=== PATIENT | male | born 1940 | race Caucasian/White ===

== ENCOUNTER 2016-04-27 01:19 | Emergency (ER) | payer OTHER ==
[~2016-04-27] VITALS: Ht 175.3 cm; Wt 80.0 kg
[2016-04-27 01:22] VITALS: TEMP 36.7; O2SAT 99; Ht 175.3 cm; Wt 80.0 kg
--- NOTE | 2016-04-27 01:54 | EMERGENCY ROOM VISIT NOTE ---
History Report prepared by Tommy: Pricilla Jimenez Under the Supervision of: Dr. Whitley Velazquez D.O. First contact with patient: 01:28 Chief Complaint: HYPERTENSION Stated Complaint: LIGHT HEADED,BALANCE OFF,BLOOD PRESSURE 200/80 History of Present Illness The patient is a 75 year old male who presents to the Emergency Room with complaints of hypertension starting shortly INSOLE RASPER. The patient states that he started to feel lightheaded and off balance intermittently and then took his blood pressure and it was 200/80 and states its usually 120/80. The patient states he was also experiencing ringing in his ears which he associates with his hypertension. The patient denies any chest pain, trouble breathing, headache , or swelling of the legs or feet. The patient denies any episodes of previous vertigo. He states that today he has eaten sauerkraut, pork, applesauce and a cinnamon roll. He denies any recent anxiety or stress or new medications. The patient states that he takes medication or diabetes and a daily tablet to control his cholesterol. Source of History: patient Onset: shortly INSOLE RASPER Position: other (global) Symptom Intensity: 200/80 Associated Symptoms: No chest pain, No headache Note: Associated symptoms:lightheaded and off balance intermittently, ear ringing. Patient denies trouble breathing or swelling of the legs or feet. Review of Systems See HPI for pertinent positives & negatives. A total of 10 systems reviewed and were otherwise negative. Past Medical & Surgical Medical Problems: (1) Diabetes mellitus (2) High cholesterol Family History No pertient family history secondary to age. Social History Smoking Status: Never Smoker Marital Status: Housing Status: lives with significant other Occupation Status: retired Current/Historical Medications Scheduled Atorvastatin (Lipitor), 20 MG PO DAILY Cholecalciferol (Vitamin D3), 400 UNITS PO DAILY Glipizide (Glipizide Er), 10 MG PO DAILY Metformin Hcl (Glucophage), 1,000 MG PO BID Multivitamin (Multivitamin), 1 TAB PO DAILY Allergies Coded Allergies: No Known Allergies (Unverified , 04/27/16) Physical Exam Vital Signs Date Time Temp Pulse Resp B/P Pulse Ox O2 Delivery O2 Flow Rate FiO2 04/27/16 03:38 161/85 04/27/16 02:16 91 18 159/78 04/27/16 02:07 89 04/27/16 01:22 36.7 93 18 188/86 99 Room Air Physical Exam HEENT: Head - normocephalic and atraumatic Pupils are equal, round, and reactive to light. Extraocular eye muscles are intact, and sclera are anicteric. Nose - moist nasal mucosa without discharge. Mouth - moist buccal mucosa. Oropharynx is nonerythematous and there is no tonsillar exudate or edema noted. Neck: Supple; no JVD, nuchal rigidity, cervical lymphadenopathy, or auscultated bruits. Heart: Regular rate and rhythm. There is a normal S1 and S2 with no murmurs, clicks, or gallops appreciated. Lungs: Clear to auscultation bilaterally with no wheezes, rales, or rhonchi. Abdomen: Soft, completely nontender, nondistended, with good bowel sounds. There are no palpable pulsatile masses or hepatosplenomegaly. There is no guarding, rigidity, or rebound noted. Extremities: No evidence of cyanosis, clubbing, or edema. There are easily palpable peripheral pulses. Skin: warm and dry with good turgor and no rashes. Medical Decision & Procedures Laboratory Results 04/27/16 02:00 Red Blood Count 4.33, Mean Corpuscular Volume 91.2, Mean Corpuscular Hemoglobin 32.6, Mean Corpuscular Hemoglobin Concent 35.7, Mean Platelet Volume 9.6, Neutrophils (%) (Auto) 72.2, Lymphocytes (%) (Auto) 18.1, Monocytes (%) (Auto) 7.8, Eosinophils (%) (Auto) 1.4, Basophils (%) (Auto) 0.3, Neutrophils # (Auto) 4.18, Lymphocytes # (Auto) 1.05, Monocytes # (Auto) 0.45, Eosinophils # (Auto) 0.08, Basophils # (Auto) 0.02 04/27/16 02:00 Test 04/27/16 02:00 White Blood Count 5.79 K/uL (4.8-10.8) Red Blood Count 4.33 M/uL (4.7-6.1) Hemoglobin 14.1 g/dL (14.0-18.0) Hematocrit 39.5 % (42-52) Mean Corpuscular Volume 91.2 fL (80-100) Mean Corpuscular Hemoglobin 32.6 pg (25-34) Mean Corpuscular Hemoglobin Concent 35.7 g/dl (32-36) Platelet Count 173 K/uL (130-400) Mean Platelet Volume 9.6 fL (7.4-10.4) Neutrophils (%) (Auto) 72.2 % Lymphocytes (%) (Auto) 18.1 % Monocytes (%) (Auto) 7.8 % Eosinophils (%) (Auto) 1.4 % Basophils (%) (Auto) 0.3 % Neutrophils # (Auto) 4.18 K/uL (1.4-6.5) Lymphocytes # (Auto) 1.05 K/uL (1.2-3.4) Monocytes # (Auto) 0.45 K/uL (0.11-0.59) Eosinophils # (Auto) 0.08 K/uL (0-0.5) Basophils # (Auto) 0.02 K/uL (0-0.2) RDW Standard Deviation 41.1 fL (36.4-46.3) RDW Coefficient of Variation 12.1 % (11.5-14.5) Immature Granulocyte % (Auto) 0.2 % Immature Granulocyte # (Auto) 0.01 K/uL (0.00-0.02) Anion Gap 11.0 mmol/L (3-11) Est Creatinine Clear Calc Drug Dose 82.1 ml/min Estimated GFR () 102.5 Estimated GFR (Non- 88.5 BUN/Creatinine Ratio 22.5 (10-20) Calcium Level 8.7 mg/dl (8.5-10.1) Total Bilirubin 0.4 mg/dl (0.2-1) Aspartate Amino Transf (AST/SGOT) 21 U/L (15-37) Alanine Aminotransferase (ALT/SGPT) 30 U/L (12-78) Alkaline Phosphatase 94 U/L (45-117) Total Creatine Kinase 180 U/L (39-308) Creatine Kinase MB 5.9 ng/ml (0.5-3.6) Creatine Kinase MB Ratio 3.3 (0-3.0) Troponin I < 0.015 ng/ml (0-0.045) Pro-B-Type Natriuretic Peptide 73 pg/ml (0-900) Total Protein 7.0 gm/dl (6.4-8.2) Albumin 3.9 gm/dl (3.4-5.0) Globulin 3.1 gm/dl (2.5-4.0) Albumin/Globulin Ratio 1.3 (0.9-2) Laboratory results per my review. ECG Indication: other (hypertension) Rate (beats per minute): 92 Rhythm: normal sinus Findings: no acute ischemic change, no ectopy Comparison ECG Date: no prior available ED Course 0135: Past medical records reviewed. The patient was evaluated in room B10. A complete history and physical exam was performed. Laboratory studies were drawn as above. A twelve-lead EKG was obtained. The patient was observed on the alarm security or surveillance monitor and pulse oximeter. 0336: I reevaluated the patient and he is feeling much better with no dizziness and a blood pressure of 161/85. The nursing staff will be walking him around to insure his symptoms are resolved. He is feeling much better. 0350: Upon reevaluation, the patient is hemodynamically stable. I discussed findings and results with him. He verbalized agreement of the treatment plan. The patient was discharged home. Medical Decision The patient is a 75 year old male who presents to the ED with hypertension. Differential diagnosis includes vertigo, hypertensive crisis, dehydration, and hyperglycemia. Labs: Normal white count Normal H&H Glucose 135 LFTs normal Troponin was negative This is a 75-year-old male patient who noticed that his blood pressure was elevated on his 's monitor. The patient explains that his blood pressure normally runs 120s-130s. It was over 200. The patient denies any significant associated symptoms. I have asked the patient to watch his blood pressure closely over the next couple days and follow-up with his PCP after keeping a log. He did also try to avoid any foods with added salt. Impression Primary Impression: Hypertension Additional Impression: Hyperglycemia due to type 2 diabetes mellitus Scribe Attestation The scribe's documentation has been prepared under my direction and personally reviewed by me in its entirety. I confirm that the note above accurately reflects all work, treatment, procedures, and medical decision making performed by me. Departure Information Dispostion Home / Self-Care Referrals Elisa Hackett M.D. (PCP) Forms HOME CARE DOCUMENTATION FORM, IMPORTANT VISIT INFORMATION, WORK / SCHOOL INSTRUCTIONS Patient Instructions A Signature Page, [facility] Additional Instructions Rest. Limit salt intake . Watch BP closely over the next 2-3 days then follow up with PCP Return to the ER for any worsening symptoms
[2016-04-27 02:08] LABS: BASO % 0.3 %; BASO ABS # 0.02 K/uL (0-0.2); COMPLETE YES; EOS % 1.4 %; HEMATOCRIT 39.5 % (42-52); IG% 0.2 %; LYMPH % 18.1 %; LYMPH ABS # 1.05 K/uL (1.2-3.4); MEAN CELL VOLUME 91.2 fL (80-100); MEAN CORPUSCULAR HEMOGLOBIN 32.6 pg (25-34); MEAN CORPUSCULAR HGB CONC 35.7 g/dl (32-36); MEAN PLATELET VOLUME 9.6 fL (7.4-10.4); MONO % 7.8 %; NEUT % 72.2 %; PLATELET COUNT 173 K/uL (130-400); RED BLOOD COUNT 4.33 M/uL (4.7-6.1); WHITE BLOOD COUNT 5.79 K/uL (4.8-10.8)
[2016-04-27 02:16] VITALS: PULSE 91
[2016-04-27 02:28] LABS: ALT/SGPT 30 U/L (12-78); AST/SGOT 21 U/L (15-37); BLOOD UREA NITROGEN 18 mg/dl (7-18); BUN/CREATININE RATIO 22.5 (10-20); CALCIUM 8.7 mg/dl (8.5-10.1); CARBON DIOXIDE 26 mmol/L (21-32); CHLORIDE 106 mmol/L (98-107); CREATININE 0.79 mg/dl (0.60-1.40); GLUCOSE 135 mg/dl (70-99); SODIUM 143 mmol/L (136-145)
[2016-04-27 02:33] LABS: ALB/GLOB RATIO 1.3 (0.9-2); ALKALINE PHOSPHATASE 94 U/L (45-117); CKMB/CK RATIO 3.3 (0-3.0)
[2016-04-27 03:38] VITALS: BP 161/85
[2016-04-27] MEDS ORDERED: ATOR-22 PO (03:45)
[2016-04-27] MEDS ORDERED: GLIP-199 PO (03:46)
[2016-04-27] MEDS ORDERED: METF-384 PO (03:46)
[2016-04-27] MEDS ORDERED: MULT-506 PO (03:47)
[2016-04-27] MEDS ORDERED: CHOL1CAP30 PO (03:48)
== END 2016-04-27 04:27 | disposition home or self-care (01) ==
LOC: C.EDB 01:20
DX: I10 Essential (primary) hypertension (principal); E11.65 Type 2 diabetes mellitus with hyperglycemia; R42 Dizziness and giddiness; H93.19 Tinnitus, unspecified ear; E78.00 Pure hypercholesterolemia, unspecified; Z79.84 Long term (current) use of oral hypoglycemic drugs; Z79.899 Other long term (current) drug therapy

== ENCOUNTER 2023-03-27 21:58 | Inpatient (IN) ==
--- OUTSIDE RECORDS SUMMARY | 2023-03-27 22:06 | External Medical Summary | Summary of Care ---
Author Name Unknown Organization [facility] Address [address] [place] [address] Phone [phone] Care Team Providers Care Table Machine Operator Name Role Phone Amanda Hidalgo DO Primary Care Provider [phone] Reason for Visit * Reason Comments eRx-Medication Refill Encounter Details Date Type Department Care Team (Late st Contact Info) Description 03/08/2023 Refill Family Medicine [address] [phone] Yoon Greer PA-C [address] [place] [id number] Dyslipidemia, goal LDL below 100; Type 2 diabetes mellitus with hemoglobin A1c goal of less than 7.5% ([facility]) Allergies Active Allergy Reactions Criticality Noted Date Comments Amoxicillin Rash High 11/18/2009 rash documented as of this encounter (statuses as of 03/09/2023) Medications Medication Sig Dispensed Refills Start Date End Date Status LANCETS MISCIndications: DM type 2, goal A1c below 7 Use as directed dx 250.00 1 Box 11 01/28/2012 Active Ergocalciferol (VITAMIN D2) 400 UNITS TABS Take by mouth. 0 05/06/2016 Active Multiple Vitamins-Mineral s (MULTIVITAMIN ADULT) TABS Take by mouth. 0 08/23/2018 Active ferrous sulfate (FEOSOL) 325 (65 FE) MG Tablet Take 1 Tablet by mouth in the morning. 60 Tab 11 08/23/2018 Active Lisinopril 10 MG Oral Tablet (Prinivil)Indica tions:HTN, goal below 140/90 Take by mouth 1 Tablet in the morning. 90 Tablet 3 02/18/2022 Active glipiZIDE ER 10 MG Oral Tablet Extended Release 24 Hour (glipiZIDE XL) Take 1 Tablet by mouth in the morning. 30 minutes before a meal.. 90 Tablet 1 08/14/2022 Active Fabian Contour Test In Vitro Strip (Glucose Blood) Test once daily Dx code E11.9 100 Strip 5 08/31/2022 Active glipiZIDE ER 5 MG Oral Tablet Extended Release 24 Hour (glipiZIDE XL)Indications:T ype 2 diabetes mellitus with hemoglobin A1c goal of less than 8.0% (HCC) Take 1 Tablet by mouth in the morning. Take along with 10 mg tablet to equal 15 mg daily. 30 minutes before a meal.. 90 Tablet 1 11/16/2022 Active Atorvastatin Calcium 20 MG Oral Tablet (Lipitor)Indicat ions:Dyslipidemi a, goal LDL below 100 TAKE ONE TABLET BY MOUTH EVERY MORNING 90 Tablet 1 03/09/2023 Active metFORMIN HCl 1000 MG Oral Tablet (Glucophage)Nitza cations:Type 2 diabetes mellitus with hemoglobin A1c goal of less than 7.5% (HCC) TAKE ONE TABLET BY MOUTH TWICE DAILY WITH MORNING AND EVENING MEALS 180 Tablet 1 03/09/2023 Active Atorvastatin Calcium 20 MG Oral Tablet (Lipitor)Indicat ions:Dyslipidemi a, goal LDL below 100 Take by mouth 1 Tablet in the morning. 90 Tablet 3 02/18/2022 03/09/2023 Discontinued metFORMIN HCl 1000 MG Oral Tablet (Glucophage)Nitza cations:Type 2 diabetes mellitus with hemoglobin A1c goal of less than 7.5% (HCC) TAKE ONE TABLET BY MOUTH TWICE DAILY WITH MORNING AND EVENING MEALS 180 Tablet 3 02/18/2022 03/09/2023 Discontinued documented as of this encounter (statuses as of 03/09/2023) Active Problems Problem Noted Date Diagnosed Date Type 2 diabetes mellitus wit h hemoglobin A1c goal of less than 8.0% 08/14/2022 Nonrheumatic aortic valve stenosis 08/14/2022 Overview: Very mild 02/2020 Type 2 diabetes mellitus with diabetic cataract 08/23/2018 Anemia 02/23/2018 HTN, goal below 140/90 02/23/2018 H/O nonmelanoma skin cancer 10/28/2016 Overview: BCC (L roman catholic, L central frontal scalp 05/16) AK (actinic keratosis) 03/02/2016 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 García [place] [facility] [place] Degenerative disc disease, cervical 07/29/2016 02/05/2017 Type 2 diabetes mellitus wit h hemoglobin A1c goal of less than 7.5% 07/16/2016 08/14/2022 Lumbar degenerative disc disease 05/25/2016 02/05/2017 Primary osteoarthritis of both hips 05/25/2016 02/05/2017 Type 2 diabetes mellitus wit h hemoglobin A1c goal of less than 7.0% 03/25/2015 07/25/2016 Overview: ICD-10 update of inactive term Peripheral sensory neuropathy 03/25/2015 02/23/2018 Balance disorder 09/20/2014 07/29/2016 BCC (basal cell carcinoma), face 11/29/2013 02/05/2017 Overview: L roman catholic-2013 DM type 2 causing eye disease 06/02/2013 02/05/2017 Type 2 diabetes mellitus wit h hemoglobin A1c goal of less than 8.0% 08/23/2012 03/25/2015 Overview: ICD-10 update of inactive term Type 2 diabetes mellitus wit h hemoglobin A1c goal of less than 7.0% 11/18/2009 08/23/2012 Overview: ICD-10 update of inactive term Diabetic polyneuropathy 11/18/200902/26 Overview: ICD-10 update of inactive term documented as of this encounter (statuses as of 03/09/2023) Immunizations Name Administration Dates Next Due COVID-19 mRNA, LNP-s, No Pre serve, 2-Dose Series (Moderna) 11/28/2021,06/26/2020,05/23/2020 COVID-19, mRNA, LNP-s, PF, B ooster, 100mcg/0.5mg (Moderna) 02/24/2021 Covid-19, Mrna, Lnp-s, Pf, B ivalent, 50 Mcg, IM, 12 yrs and above (Moderna) 02/09/2022 Pneumococcal Conjugate Vacc, 13 Valent (Prevnar) 09/20/2014 Pneumococcal Polysaccharide PPV23 (Pneumovax) 12/25/2009,11/18/2009(Deferred: Patient Refused) SEASONAL INFLUENZA, PF, 6 M & Above, IM , (FLULAVAL or FLUZONE) 02/23/2018,02/05/2017 Season Influenza, Quad, PF, Adjuvanted, 65+ Yrs, IM (FLUAD) 02/12/2023 Seasonal Influenza, Quadriva lent Hd (Fluzone Hd) 01/10/2021 Seasonal Influenza, Quadriva lent Hd, 65+ Yrs 01/26/2020 Seasonal Influenza, Quadriva lent, No Preserve, IM 01/27/2016,03/25/2015 Seasonal Influenza, Split, I IV3, With Preserve, Inj 03/02/2014,02/23/2013,01/28/2012,01/27,03/27/2010 Seasonal Influenza, Trivalen t, Adjuvanted, 65+ yrs 02/09/2022,02/10/2019 TDAP (age 11 and older)(Adacel) 09/24/2015 Varicella Zoster Vaccine (Adult) 02/24/2013 Zoster Vaccine Recombinant (Shingrix) 09/30/2020 ,12/18/2019 documented as of this encounter Social History Tobacco Use Types Packs/Day Years Used Date Smoking Tobacco: Never Smokeless Tobacco: Never Alcohol Use Standard Drinks/Week Comments No 0 (1 standard drink = 0.6 oz pur e alcohol) PHQ-2 Answer Date Recorded PHQ Adult Total Score 0 08/14/2022 Hunger Vital Sign Answer Date Recorded Worried About Running Out of Food in the Last Ye ar Never true 12/26/2019 Ran Out of Food in the Last Year Never true 12/26/2019 Sex and Gender Information Value Date Recorded Sex Assigned at Not on file Gender Identity Not on file Sexual Orientation Not on file Job Start Date Occupation Industry Not on file Not on file Not on file documented as of this encounter Miscellaneous Notes * Telephone Encounter - Laura James RPh - 03/09/2023 1:20 PM ESTSigned Prescriptions: Disp Refills Atorvastatin Calcium 20 MG Oral Tablet (Li*90 Tab*1 Sig: TAKE ONE TABLET BY MOUTH EVERY MORNINGAuthorizing Provider: YOON GREER User: LAURA JAMESmetFORMIN HCl 1000 MG Oral Tablet (Glucoph*180 Ta*1 Sig: TAKE ONE TABLET BY MOUTH TWICE DAILY WITH MORNING AND EVENING MEALSAuthorizing Provider: YOON GREER User: LAURA JAMES documented in this encounter Plan of Treatment Upcoming Encounters Date Type Department Care Team (Late st Contact Info) Description 04/06/2023 1:45 PM EST Office Visit Ophthalmology, [facility] [address] [facility] [place] [phone] Connor Knowles DO [address] [place] [phone] 04/07/2023 2:30 PM EST Office Visit Pharmacy, [address] [place] [phone] [place] [phone] 05/19/2023 1:40 PM EST Office Visit Dermatology [address] [place] [phone] Lizeth Reardon PA-C [address] [place] [address] [place] [phone] 09/29/2023 9:30 AM EDT Office Visit Family Medicine [address] [place] [phone] Amanda Hidalgo, [address] [place] [phone] Health Maintenance Due Date Last Done Comments Hepatitis B (1 of 3 - Risk 3-dose series) 2001 COVID-19 Vaccine ( season) 2022 02/09/2022, 11/28/2021, 02/24/2021, Additional history exists Diabetic Eye Exam 03/25/2023 03/25/2022 (Do ne elsewhere), 06/16/2021, 03/17/2021, Additional history exists Albumin/Creatinine Ratio 08/13/2023 023, 08/15/2021, 08/26/2020, Additional history exists Depression Screening 08/15/2023 08/14/2022 Diabetic Foot Exam 08/15/2023 08/14/2022, 0 08/22/2021, 08/30/2020, Additional history exists HbA1c 08/24/2023 02/23/2023, 10/25, 08/12/2022, Additional history exists B-12 02/24/2024 02/23/2023, 01/24, 08/15/2021, Additional history exists GFR 02/24/2024 02/23/2023, 07/25, 02/11/2022, Additional history exists DTaP,Tdap,and Td Vaccines (2 - Td or Tdap) 09/23/2025 09/24/2015 Pneumococcal Vaccine: 65+ Years Completed 09/20/2014, 12/25/2009 Zoster Vaccines Completed 09/30/2020, 11/25, 02/24/2013 FOBT ANNUALLY,AGES 18-90 Discontinued 022, 09/16/2020, 03/09/2019, Additional history exists Influenza Vaccine (FLU shot) Completed 02/12/2023, 02/09/2022, 01/10/2021, Additional history exists GARDASIL-HPV IMMUNIZATION SERIES Aged Out No longer eligible based on patient's age to complete this topic MENINGOCOCCAL (MENACTRA/MENVEO) Aged Out No longer eligible based on patient's age to complete this topic documented as of this encounter Medical Devices Not on filedocumented as of this encounter Visit Diagnoses Diagnosis Dyslipidemia, goal LDL below 100 Other and unspecified hyperlipidemia Type 2 diabetes mellitus with hemoglobin A1c goal of less than 7.5% ([facility]) documented in this encounter Care Teams Table Machine Operator Relationship Specialty Start Date End Date Amanda Hidalgo DO [address] [place] [address] [place] [phone] PCP - General Internal Medicine 08/18/18 documented as of this encounter
--- OUTSIDE RECORDS SUMMARY | 2023-03-27 22:06 | External Medical Summary ---
Author Name Unknown Address Unknown Organization [id number]:[facility] [place] - [address] [place] [id number] Laboratory Report Ordering Provider Test Date Status JENNIFER VALDIVIA 02/23/2023 10:34:05 Final Deficient: <20 ng/mL
Ins ufficient: 20-29 ng/mL
Recommended/Optimum:30-50 ng/mL

Vitamin D intoxication is rare. If suspicious of Vitamin D toxicity, evaluation of serum Calcium and PTH is recommended. Observation Date Value Abnormality Reference (Units ) Status 25-OH Vitamin D total 02/23/2023 10:34:05 55 >19 (ng/mL) Final Performing Location [facility] [place] - [address] [place] [phone]
--- OUTSIDE RECORDS SUMMARY | 2023-03-27 22:06 | External Medical Summary | Summary of Care ---
Author Name Unknown Organization [facility] Address [address] [facility] [place] [address] Phone [phone] Care Team Providers Care Seafood Service Team Member Name Role Phone Amanda Hidalgo DO Primary Care Provider Reason for Visit * Reason Comments Outpatient Testing Encounter Details Date Type Department Care Team (Late st Contact Info) Description 02/23/2023 10:20 AM EDT Laboratory Laboratory [address] [place] [phone] [facility] [address] [place] [phone] Type 2 diabetes mellitus with hemoglobin A1c goal of less than 8.0% ([facility]); half-way current use of therapeutic drug; Iron deficiency anemia secondary to inadequate dietary iron intake Allergies Active Allergy Reactions Criticality Noted Date Comments Amoxicillin Rash High 11/18/2009 rash documented as of this encounter (statuses as of 02/23/2023) Medications Medication Sig Dispensed Refills Start Date End Date Status LANCETS MISCIndications:DM type 2, goal A1c below 7 Use as directed dx 250.00 [address] 01/28/2012 Active Ergocalciferol (VITAMIN D2) 400 UNITS TABS Take by mouth. 0 05/06/2016 Active Multiple Vitamins-Minerals (MULTIVITAMIN ADULT) TABS Take by mouth. 0 08/23/2018 Active ferrous sulfate (FEOSOL) 325 (65 FE) MG Tablet Take 1 Tablet by mouth in the morning. 60 Tab 11 08/23/2018 Active Atorvastatin Calcium 20 MG Oral Tablet (Lipitor)Indications :Dyslipidemia, goal LDL below 100 Take by mouth 1 Tablet in the morning. 90 Tablet 3 02/18/2022 Active Lisinopril 10 MG Oral Tablet (Prinivil)Indication s:HTN, goal below 140/90 Take by mouth 1 Tablet in the morning. 90 Tablet 3 02/18/2022 Active metFORMIN HCl 1000 MG Oral Tablet (Glucophage)Indicati ons:Type 2 diabetes mellitus with hemoglobin A1c goal of less than 7.5% (HCC) TAKE ONE TABLET BY MOUTH TWICE DAILY WITH MORNING AND EVENING MEALS 180 Tablet 3 02/18/2022 Active glipiZIDE ER 10 [...] Oral Tablet Extended Release 24 Hour (glipiZIDE XL)Indications:Type 2 diabetes mellitus with hemoglobin A1c goal of less than 8.0% (HCC) Take 1 Tablet by mouth in the morning. Take along with 10 mg tablet to equal 15 mg daily. 30 minutes before a meal.. 90 Tablet 1 11/16/2022 Active Dexcom G7 Stud Beef Cattle Farmer Device Use as directed 1 Each 0 12/09/2022 Active Dexcom G7 Sensor Use as directed. Change every 10 days. 3 Each 3 12/09/2022 Active documented as of this encounter (statuses as of 02/23/2023) Active Problems Problem Noted Date Diagnosed Date Type 2 diabetes mellitus wit h hemoglobin A1c goal of less than 8.0% 08/14/2022 Nonrheumatic aortic valve stenosis 08/14/2022 Overview: Very mild 02/2020 Hydrocele in adult 08/30/2020 [place]: 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 06/19 Hyperlipidemia with target LDL less than 70 10/25 documented as of this encounter (statuses as of 02/23/2023) Resolved Problems Problem Noted Date Diagnosed Date Resolved Date Degenerative disc disease, cervical 07/29/2016 02/05/2017 Type [...] (basal cell carcinoma), face 11/29/2013 02/05/2017 Overview: Edgar palaciosorthodox-2013 DM type 2 causing eye disease 06/02/2013 [...] as of this encounter (statuses as of 02/23/2023) Immunizations Name Administration Dates Next Due COVID-19 [...] on file documented as of this encounter Plan of Treatment Upcoming Encounters Date Type Department Care Team ([facility] st Contact Info) Description 02/24/2023 1:50 PM EDT Office Visit Family Medicine [address] [phone] Amanda Hidalgo, [address] [place] [phone] 02/24/2023 2:40 PM EDT Office Visit Pharmacy, [address] [place] [phone] [place] [address] 04/06/2023 1:45 PM EST Office Visit Ophthalmology, [facility] [address] [place] [address] Connor Knowles, [address] [place] [address] 05/19/2023 1:40 PM EST Office Visit Dermatology [address] [place] [address] Lizeth Reardon PA-C [address] [place] [address] [place] [phone] Pending Results Name Type Priority Associated Diagnoses Date /Time HEMOGLOBIN A1C Lab Routine Type 2 diabetes mellitus with hemoglobin A1c goal of less than 8.0% ([facility]) 02/23/2023 10:34 AM EDT VITAMIN B12 Lab Routine half-way current use of therapeutic drug 02/23/2023 10:34 AM EDT CBC WITH WBC DIFFERENTIAL AND ANEMIA REFLEX WORKUP Lab Routine Iron deficiency anemia secondary to inadequate dietary iron intake 02/23/2023 10:34 AM EDT 25-HYDROXY VITAMIN D Lab Routine half-way current use of therapeutic drug 02/23/2023 10:34 AM EDT ANEMIA CBC Lab Routine Iron deficiency anemia secondary to inadequate dietary iron intake 02/23/2023 10:34 AM EDT DIFFERENTIAL, AUTOMATED Lab Routine Iron deficiency anemia secondary to inadequate dietary iron intake 02/23/2023 10:34 AM EDT ANEMIA REFLEX CHEMISTRY HOLD Lab Routine Iron deficiency anemia secondary to inadequate dietary iron intake 02/23/2023 10:34 AM EDT Health Maintenance Due Date Last Done Comments Hepatitis B (1 of 3 - Risk 3-dose series) 2001 COVID-19 Vaccine ( season) 2022 02/09/2022, 11/28/2021, 02/24/2021, Additional history exists FOBT ANNUALLY,AGES 18-90 01/15/2023 022, 09/16/2020, 03/09/2019, Additional history exists B-12 02/11/2023 02/11/2022, 07/26, 02/26/2020, Additional history exists Diabetic Eye Exam 03/25/2023 03/25/2022 (Do ne elsewhere), 06/16/2021, 03/17/2021, Additional history exists HbA1c 05/15/2023 11/12/2022, 07/25, 02/11/2022, Additional history exists Albumin/Creatinine Ratio 08/13/2023 023, 08/15/2021, 08/26/2020, Additional history exists GFR 08/13/2023 08/12/2022, 01/24, 08/15/2021, Additional history exists Depression Screening 08/15/2023 08/14/2022 Diabetic Foot Exam 08/15/2023 08/14/2022, 0 08/22/2021, 08/30/2020, Additional history exists DTaP,Tdap,and Td Vaccines (2 - Td or Tdap) 09/23/2025 09/24/2015 Pneumococcal Vaccine: 65+ Years Completed 09/20/2014, 12/25/2009 Zoster Vaccines Completed 09/30/2020, 11/25, 02/24/2013 Influenza Vaccine (FLU shot) Completed , 02/09/2022, 01/10/2021, Additional history exists GARDASIL-HPV IMMUNIZATION SERIES Aged Out No longer eligible based on patient's age to complete this topic MENINGOCOCCAL (MENACTRA/MENVEO) Aged Out No longer eligible based on patient's age to complete this topic documented as of this encounter Medical Devices Not on filedocumented as of this encounter Visit Diagnoses Diagnosis Type 2 diabetes mellitus with hemoglobin A1c goal of less than 8.0% (HCC) half-way current use of therapeutic drug Iron deficiency anemia secondary to inadequate dietary iron intake documented in this encounter Care Teams Seafood Service Team Member Relationship Specialty Start Date End Date Amanda Hidalgo DO [address] [place] [address] [place] [phone] PCP - General Internal Medicine 08/18/18 documented as of this encounter
--- OUTSIDE RECORDS SUMMARY | 2023-03-27 22:06 | External Medical Summary | Summary of Care ---
Author Name Unknown Organization [facility] Address [address] [facility] [place] [address] Phone [phone] Care Team Providers Care Census Enumerator Name Role Phone Amanda Hidalgo DO Primary Care Provider [phone] Reason for Visit * Reason Comments Outpatient Testing Encounter Details Date Type Department Care Team (Late st Contact Info) Description 02/23/2023 10:20 AM EDT Laboratory Laboratory [address] [place] [phone] [facility] [address] [place] [phone] Arrived Allergies Active Allergy Reactions Criticality Noted Date [...] 90 Tablet 1 11/16/2022 Active Dexcom G7 Food And Beverage Server Device Use as directed 1 Each 0 [...] in adult 08/30/2020 Overview: Dr. García - [facility] [place] Type 2 diabetes mellitus with diabetic cataract 08/23/2018 Anemia 02/23/2018 HTN, goal below 140/90 02/23/2018 H/O nonmelanoma skin cancer 10/28/2016 Overview: BCC (L protestant, L central frontal scalp 05/16) AK (actinic [...] cell carcinoma), face 11/29/2013 02/05/2017 Overview: L protestant-2013 DM type 2 causing eye disease 06/02/2013 [...] Care Team (Late st Contact Info) Description 02/24/2023 1:50 PM EDT Office Visit Family Medicine [address] [place] [phone] Amanda Hidalgo [address] [place] [phone] 02/24/2023 2:40 PM EDT Office Visit Pharmacy, [address] [place] [phone] [place] [address] 04/06/2023 1:45 PM EST Office Visit Ophthalmology, [facility] [address] [place] [address] Connor Knowles, [address] [place] [address] 05/19/2023 1:40 PM EST Office Visit Dermatology [address] [place] [address] Lizeth Reardon PA-C [address] [place] [address] [place] [address] Health Maintenance Due Date Last Done Comments [...] Not on filedocumented as of this encounter Care Teams Census Enumerator Relationship Specialty Start Date End Date Amanda Hidalgo DO [address] [place] [address] [place] [address] PCP - General Internal Medicine 08/18/18 documented as of this encounter
--- OUTSIDE RECORDS SUMMARY | 2023-03-27 22:06 | External Medical Summary ---
Author Name Unknown Address Unknown Organization [id number]:LABORATORY [facility] [place] - [address] [facility] [address] Laboratory Report Ordering Provider Test Date Status JENNIFER VALDIVIA 02/23/2023 10:34:05 Final Observation Date Value Abnormality Reference (Units ) Status SYNC LEUKOCYTES IN BLOOD BY AUTOMATED COUNT 02/23/2023 10:34:05 5.00 4.00-10.80 (K/uL) Final Segs 02/23/2023 10:34:05 62.8 40.0-75.0 (%) Final Lymphs % 02/23/2023 10:34:05 22.8 18.0-42.0 (%) Final Monos 02/23/2023 10:34:05 9.6 1.0-11.0 (%) Final Eosinophils 02/23/2023 10:34:05 3.6 0.0-6.0 (%) Final Basos 02/23/2023 10:34:05 0.8 0.0-2.0 (%) Final Immature Granulocyte, Percent 02/23/2023 10:34:05 0.4 0.0-2.0 (%) Final Absolute Segs 02/23/2023 10:34:05 3.14 1.80-7.70 (K/uL) Final Lymphs, absolute 02/23/2023 10:34:05 1.14 1.00-4.80 (K/ul) Final Monos, Abs 02/23/2023 10:34:05 0.48 0.00-1.10 (K/uL) Final Eos, Abs 02/23/2023 10:34:05 0.18 0.00-0.70 (K/uL) Final Basos, Abs 02/23/2023 10:34:05 0.04 0.00-0.20 (K/uL) Final Immature Granulocytes, Number 02/23/2023 10:34:05 0.02 0.00-0.20 (K/uL) Final Performing Location LABORATORY [facility] [place] - [address] [facility] [address]
--- OUTSIDE RECORDS SUMMARY | 2023-03-27 22:06 | External Medical Summary | Summary of Care ---
Author Name Unknown Organization [facility] Address [address] [facility] [address] Phone [phone] Care Team Providers Care Content Analyst Name Role Phone Amanda Hidalgo DO Primary Care Provider Encounter Details Date Type Department Care Team (Late st Contact Info) Description 02/25/2023 Telephone Pharmacy, [address] [place] [phone] [facility] [place] [address] Allergies Active Allergy Reactions Criticality Noted Date Comments Amoxicillin Rash High 11/18/2009 rash documented as of this encounter (statuses as of 02/25/2023) Medications Medication Sig Dispensed Refills Start Date [...] a meal.. 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 García [place] [facility] [place] Degenerative disc disease, cervical 07/29/2016 02/05/2017 Type [...] cell carcinoma), face 11/29/2013 02/05/2017 Overview: L mosque-2013 DM type 2 causing eye disease 06/02/2013 [...] as of this encounter (statuses as of 02/25/2023) Immunizations Name Administration Dates Next Due COVID-19 [...] encounter Miscellaneous Notes * Telephone Encounter - Brook Beltrán RPh - 02/25/2023 8:41 AM EDT [employer] PAP application faxed. Successful confirmation received. Brook Beltrán RPh, PharmD Clinical Pharmacist - [employer] Instructor [facility]ication [facility] 02/25/2023, 8:41 AM [phone] documented in this encounter Plan of Treatment Upcoming Encounters Date Type Department Care Team (Olaf sosa Contact Info) Description 04/06/2023 1:45 PM EST Office Visit Ophthalmology, [facility] [address] [place] [phone] Connor Knowles DO [address] [place] [address] 04/07/2023 2:30 PM EST Office Visit Pharmacy, [address] [place] [phone] [place] [address] 05/19/2023 1:40 PM EST Office Visit Dermatology [address] [place] [phone] Lizeth Reardon PA-C [address] [place] [address] [place] [phone] 09/29/2023 9:30 AM EDT Office Visit Family Medicine [address] [place] [phone] Amanda Hidalgo [address] [place] [address] Health Maintenance Due Date Last Done Comments [...] filedocumented as of this encounter Care Teams Content Analyst Relationship Specialty Start Date End Date Amanda Hidalgo DO [address] [place] [address] [place] [phone] PCP - General Internal Medicine 08/18/18 documented as of this encounter
--- OUTSIDE RECORDS SUMMARY | 2023-03-27 22:06 | External Medical Summary | Summary of Care ---
Author Name Unknown Organization [facility] Address [address] [facility] [place] [address] Phone [phone] Care Team Providers Care Director Of Slot Operations Name Role Phone Amanda Hidalgo DO Primary Care Provider Reason for Visit * Reason Onset Date Comments Order Request 02/23/2023 Encounter Details Date Type Department Care Team (Late st Contact Info) Description 02/23/[address] [place] [phone] Amanda Hidalgo [address] [place] [phone] Order Request (/) Allergies Active Allergy Reactions Criticality Noted Date [...] 90 Tablet 1 11/16/2022 Active Dexcom G7 Software Test And Validation Engineer Device Use as directed 1 Each 0 [...] in adult 08/30/2020 Overview: Dr. García - [facility] [place] Type 2 diabetes mellitus with diabetic cataract 08/23/2018 Anemia 02/23/2018 HTN, goal below 140/90 02/23/2018 H/O nonmelanoma skin cancer 10/28/2016 Overview: BCC (L religion, L central frontal scalp 05/16) AK (actinic [...] cell carcinoma), face 11/29/2013 02/05/2017 Overview: L religion-2013 DM type 2 causing eye disease 06/02/2013 [...] encounter Miscellaneous Notes * Telephone Encounter - Amanda Hidalgo DO - 02/23/2023 10:30 AM EDT Labs ordered. documented in this encounter Plan of Treatment Upcoming Encounters Date Type Department Care Team (Late st Contact Info) Description 02/24/2023 1:50 PM EDT Office Visit Family Medicine [address] [place] [phone] Amanda [address] [place] [phone] 02/24/2023 2:40 PM EDT Office Visit Pharmacy, [address] [place] [address] [place] [address] 04/06/2023 1:45 PM EST Office Visit Ophthalmology, [facility] [address] [place] [address] Connor Knowles [address] [place] [address] 05/19/2023 1:40 PM EST Office Visit Dermatology [address] [place] [address] Lizeth Reardon PA-C [address] [place] [address] [place] [phone] Pending Results Name Type Priority Associated Diagnoses Date /Time HEMOGLOBIN A1C Lab Routine Type 2 diabetes mellitus with hemoglobin A1c goal of less than 8.0% (HCC) 02/23/2023 10:34 AM EDT VITAMIN B12 Lab Routine intermediate current use of therapeutic drug 02/23/2023 10:34 AM EDT CBC WITH WBC DIFFERENTIAL AND ANEMIA REFLEX WORKUP Lab Routine Iron deficiency anemia secondary to inadequate dietary iron intake 02/23/2023 10:34 AM EDT 25-HYDROXY VITAMIN D Lab Routine intermediate current use of therapeutic drug 02/23/2023 10:34 AM EDT Scheduled Orders Name Type Priority Associated Diagnoses Orde r Schedule HEMOGLOBIN A1C Lab Routine Type 2 diabetes mellitus with hemoglobin A1c goal of less than 8.0% (HCC) Expected: 02/23/2023 (Approximate), Expires: 02/23/2024 VITAMIN B12 Lab Routine ad terminal makeup operator current use of therapeutic drug Expected: 02/23/2023 (Approximate), Expires: 02/23/2024 CBC WITH WBC DIFFERENTIAL AND ANEMIA REFLEX WORKUP Lab Routine Iron deficiency anemia secondary to inadequate dietary iron intake Expected: 02/23/2023 (Approximate), Expires: 02/24/2024 25-HYDROXY VITAMIN D Lab Routine intermediate current use of therapeutic drug Expected: 02/23/2023 (Approximate), Expires: 02/23/2024 Health Maintenance Due Date Last Done Comments Hepatitis B (1 of 3 - Risk 3-dose series) 2001 COVID-19 Vaccine ( season) 2022 02/09/2022, 11/28/2021, 02/24/2021, Additional history exists FOBT ANNUALLY,AGES 18-90 01/15/2023 022, 09/16/2020, 03/09/2019, Additional history exists B-12 02/11/2023 02/11/2022, 0405/2021, 02/26/2020, Additional history exists Diabetic Eye Exam [...] hemoglobin A1c goal of less than 8.0% ([facility])- Primary Iron deficiency anemia secondary to inadequate dietary iron intake ad terminal makeup operator current use of therapeutic drug documented in this encounter Care Teams Director Of Slot Operations Relationship Specialty Start Date End Date Amanda Hidalgo DO [address] [place] [address] [place] [phone] PCP - General Internal Medicine 08/18/18 documented as of this encounter
--- OUTSIDE RECORDS SUMMARY | 2023-03-27 22:06 | External Medical Summary ---
Author Name Unknown Address Unknown Organization [id number]:LABORATORY [facility] [place] - [address] [facility] [address] [facility] [address] Laboratory Report Ordering Provider Test Date Status JENNIFER VALDIVIA 02/23/2023 10:34:05 Final Observation Date Value Abnormality Reference (Units ) Status HbA1C 02/23/2023 10:34:05 8.0 Above high normal 4. 0-5.6 (%) Final The use of HbA1c to monitor glycemic status is based on normal hemoglobin and HbA composition. This test should not be used in patients with abnormal hemoglobin that affects the half life of the red blood cell or the in vivo glycation rates. Glucose, estimated average 02/23/2023 10:34:05 183 Above high normal <126 (mg/dL) Eugene rivas Performing Location LABORATORY [facility] [place] - [address] [facility] [address] [facility] [address]
--- OUTSIDE RECORDS SUMMARY | 2023-03-27 22:06 | External Medical Summary | Summary of Care ---
Author Name Unknown Organization [facility] Address [address] [place] [address] Phone [phone] Care Team Providers Care Motor Equipment Commanding Officer Name Role Phone Amanda Hidlago DO Primary Care Provider Reason for Visit * Reason Comments Dosage Adjustment In Person (Anticoag Cl inic) Diabetes Follow-Up Encounter Details Date Type Department Care Team (Late st Contact Info) Description 02/24/2023 2:40 PM EDT Office Visit Pharmacy, [address] [place] [phone] [place] [address] Type 2 diabetes mellitus with hemoglobin A1c goal of less than 8.0% ([facility])* Allergies Active Allergy Reactions Criticality Noted Date Comments Amoxicillin Rash High 11/18/2009 rash documented as of this encounter (statuses as of 02/24/2023) Medications Medication Sig Dispensed Refills Start Date [...] as of this encounter (statuses as of 02/24/2023) Active Problems Problem Noted Date Diagnosed Date Type 2 diabetes mellitus wit h hemoglobin A1c goal of less than 8.0% 08/14/2022 Nonrheumatic aortic valve stenosis 08/14/2022 Overview: Very mild 02/2020 Type 2 diabetes mellitus with diabetic cataract 08/23/2018 Anemia 02/23/2018 HTN, goal below 140/90 02/23/2018 H/O nonmelanoma skin cancer 10/28/2016 Overview: BCC (L druze, L central frontal scalp 05/16) AK (actinic keratosis) 03/02/2016 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 García - [facility] Degenerative disc disease, cervical 07/29/2016 02/05/2017 Type [...] cell carcinoma), face 11/29/2013 02/05/2017 Overview: Edgar druze-2013 DM type 2 causing eye disease 06/02/2013 [...] as of this encounter (statuses as of 02/24/2023) Immunizations Name Administration Dates Next Due COVID-19 [...] on file documented as of this encounter Progress Notes * Brook Beltrán, [facility] - 02/24/2023 2:30 PM EDT Medication Therapy Disease Management Clinic - Diabetes Management Progress Note Jesús Vences, identified by name and date of , is a 82 year old male being seen for diabetes management/education. Patient presents for return diabetic visit. DIABETES: Current diabetic medications: Glipizide ER 15 mg daily in the AM (5mg +10mg tablets) Metformin HCl 1000mg BID eGFR >90 as of 08/12/22 Target A1c < 8% Medication Injection Site: N/A Lifestyle: Diet: unchanged Glucose Review/SMBG: BG log not available Hypoglycemia: Does your blood sugar go below 70 mg/dL? Denies Hyperglycemia symptoms present: none Recent Labs Units 02/23/23 1034 11/12/22 0946 08/12/22 1043 HEMOGLOBIN A1C - [facility] % 8.0* 8.4* 9.2* Recent Labs Units 02/23/23 1034 08/12/22 1043 02/11/22 1018 ESTIMATED GLOMERULAR FILTRATION RATE - [facility] mL/min 88 >90 >90 CREATININE - [facility] mg/dL 0.8 0.7 0.7 HYPERTENSION: Patient on ACEi/ARB: yes BP Readings from Last 3 Encounters: 02/24/23 152/78 11/16/22 136/68 08/14/22 134/70 Blood pressure at goal: yes HYPERLIPIDEMIA: Patient is taking moderate or high intensity statin: yes HEALTH MAINTENANCE REVIEW: Health Maintenance Due Topic Date Due Hepatitis B (1 of 3 - Risk 3-dose series) Never done COVID-19 Vaccine ( season) 2022 ASSESSMENT & PLAN: ICD-10-CM 1. Type 2 diabetes mellitus with hemoglobin A1c goal of less than 8.0% (HCC) E11.9 Considerations: NO RX COVERAGE PACE? Retinopathy, following with Dr Knowles BG Readings - Blood sugars not available. A1c improved to 8.0%. Denies any s/sx of hypoglycemia. Medications - Reviewed current regimen, patient is adherent to regimen. As noted in previous encounters, looking to start Jardiance however this is limited due to cost. Patient brought in completed BI Cares PAP. Will plan to submit. Remind me sent to f/u. Patient instructed to contact clinic if obtained prior to starting. Will obtain updated BMP x2 weeks after starting and look towards decreasingGlipizide. Diet, Exercise, Lifestyle - No significant lifestyle changes since last visit. Patient is agreeable to SMBG 1-3 time(s) daily. Patient aware to contact clinic if any hypoglycemia before next visit. MEDICATION CHANGES: See below Diabetic Medications: Glipizide ER 15 mg daily in the AM (5mg +10mg tablets) Metformin HCl 1000mg BID START Jardiance 10mg (once able to obtain from [facility]) eGFR >90 as of 08/12/22 Target A1c < 8% HEALTH MAINTENANCE INTERVENTIONS: Labs: Up to Date Immunizations: Up to Date Foot Exam: Up to Date Eye Exam: Up to Date Annual Wellness Visit: Due FOLLOW UP: Return to clinic in 6 weeks 04/07/2023 Brook Beltrán [facility] Clinical Pharmacist - Building Maintenance Custodian Medication Therapy Management Clinic 02/24/2023, 2:30 PM documented in this encounter Plan of Treatment Upcoming Encounters Date Type Department Care Team (Late st Contact Info) Description 04/06/2023 1:45 PM EST Office Visit Ophthalmology, [facility] [address] [place] [address] Connor Knowles DO [address] [place] [address] 04/07/2023 2:30 PM EST Office Visit Pharmacy, [address] [place] [phone] [place] [phone] 05/19/2023 1:40 PM EST Office Visit Dermatology [address] [place] [phone] Lizeth Reardon PA-C [address] [place] [address] [place] [phone] 09/29/2023 9:30 AM EDT Office Visit Family Medicine [address] [place] [phone] Amanda Hidalgo [address] [place] [address] Health Maintenance Due Date Last Done Comments [...] hemoglobin A1c goal of less than 8.0% (HCC)- Primary documented in this encounter Care Teams Motor Equipment Commanding Officer Relationship Specialty Start Date End Date Hidalgo, Shipley, DO [address] [place] [address] [place] [phone] PCP - General Internal Medicine 08/18/18 documented as of this encounter
--- OUTSIDE RECORDS SUMMARY | 2023-03-27 22:06 | External Medical Summary | Summary of Care ---
Author Name Unknown Organization [facility] Address [address] [facility] [place] [address] Phone [phone] Care Team Providers Care Sales And Service Advisor Name Role Phone Amanda Hidalgo DO Primary Care Provider [phone] Reason for Visit * Reason Comments Outpatient Testing Encounter Details Date Type Department Care Team (Late st Contact Info) Description 02/23/2023 10:20 AM EDT Laboratory Laboratory [address] [place] [phone] [facility] [address] [place] [phone] Arrived Allergies Active Allergy Reactions Criticality Noted [...] 90 Tablet 1 11/16/2022 Active Dexcom G7 Car Dumper Operator Helper Device Use as directed 1 Each 0 [...] in adult 08/30/2020 Overview: Dr. García - [facility] Type 2 diabetes mellitus with diabetic cataract 08/23/2018 Anemia 02/23/2018 HTN, goal below 140/90 02/23/2018 H/O nonmelanoma skin cancer 10/28/2016 Overview: BCC (L faith, L central frontal scalp 05/16) AK (actinic [...] cell carcinoma), face 11/29/2013 02/05/2017 Overview: L faith-2013 DM type 2 causing eye disease 06/02/2013 [...] 1:50 PM EDT Office Visit Family Medicine [address] [place] [phone] Amanda Hidalgo [address] [place] [phone] 02/24/2023 2:40 PM EDT Office Visit Pharmacy, [address] [place] [phone] [place] [address] 04/06/2023 1:45 PM EST Office Visit Ophthalmology, [facility] [address] [place] [address] Connor Knowles, [address] [place] [address] 05/19/2023 1:40 PM EST Office Visit Dermatology [address] [place] [address] Lizeth Reardon PA-C [address] [place] [address] [place] [phone] Health Maintenance Due Date Last Done Comments [...] filedocumented as of this encounter Care Teams Sales And Service Advisor Relationship Specialty Start Date End Date Amanda Hidalgo DO [address] [place] [address] [place] [phone] PCP - General Internal Medicine 08/18/18 documented as of this encounter
--- OUTSIDE RECORDS SUMMARY | 2023-03-27 22:06 | External Medical Summary ---
Author Name Unknown Address Unknown Organization [id number]:[facility] [place] [address] [facility] [place] [address] Laboratory Report Ordering Provider Test Date Status JENNIFER VALDIVIA 02/23/2023 10:34:05 Final Observation Date Value Abnormality Reference (Units ) Status Creatinine 02/23/2023 10:34:05 0.8 0.6-1.2 (mg/dL) Final Glomerular filtration rate/1.73 sq M.predicted [Volume Rate/Area] in Serum, Plasma or Blood by Creatinine-based formula (CKD-EPI) 02/23/2023 10:34:05 88 >=60 (mL/min) Final eGFR is calculated based on the CKD-EPI 2020 equation Performing Location [facility] [place] [facility] [place] [address]
--- OUTSIDE RECORDS SUMMARY | 2023-03-27 22:06 | External Medical Summary ---
Author Name Unknown Address Unknown Organization [id number]:LABORATORY [facility] - [address] [place] [address] Laboratory Report Ordering Provider Test Date Status JENNIFER VALDIVIA 02/23/2023 10:34:05 Final Observation Date Value Abnormality Reference (Units ) Status Iron 02/23/2023 10:34:05 102 45-176 (ug /dL) Final Iron-binding capacity 02/23/2023 10:34:05 282 250-425 (ug/dL) Final Transferrin Sat % 02/23/2023 10:34:05 36 15 -55 (%) Final Performing Location LABORATORY [facility] - [address] [place] [address]
--- OUTSIDE RECORDS SUMMARY | 2023-03-27 22:06 | External Medical Summary | Summary of Care ---
Author Name Unknown Organization [facility] Address [address] [place] [address] Phone [phone] Care Team Providers Care E Commerce Strategist Name Role Phone Amanda Hidalgo DO Primary Care Provider [phone] Reason for Visit * Reason Comments Re-Check Pt denies any concer ns at this time. Encounter Details Date Type Department Care Team (Late st Contact Info) Description 02/24/2023 1:50 PM EDT Office Visit Family Medicine [address] [place] [phone] Amanda Hidalgo [address] [place] [address] Type 2 diabetes mellitus with hemoglobin A1c goal of less than 8.0% ([facility])*; Hyperlipidemia with target LDL less than 70; HTN, goal below 140/90; Iron deficiency anemia, unspecified iron deficiency anemia type; Special screening for malignant neoplasms, colon Allergies Active Allergy Reactions Criticality Noted Date [...] 02/18/2022 Active Lisinopril 10 MG Oral Tablet (Prinivil)Indica [...] 90 Tablet 1 11/16/2022 Active Dexcom G7 Energy Attorney Device Use as directed 1 Each 0 12/09/2022 02/24/2023 Discontinued Dexcom G7 Sensor Use as directed. Change every 10 days. 3 Each 3 12/09/2022 02/24/2023 Discontinued documented as of this encounter (statuses as of 02/24/2023) Active Problems Problem Noted Date Diagnosed Date Type 2 diabetes mellitus wit h hemoglobin A1c goal of less than 8.0% 08/14/2022 Nonrheumatic aortic valve stenosis 08/14/2022 Overview: Very mild 02/2020 Type 2 diabetes mellitus with diabetic cataract 08/23/2018 Anemia 02/23/2018 HTN, goal below 140/90 02/23/2018 H/O nonmelanoma skin cancer 10/28/2016 Overview: BCC (L mandaeism, L central frontal scalp 05/16) AK (actinic keratosis) 03/02/2016 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 García - [facility] [place] Degenerative disc disease, cervical [...] cell carcinoma), face 11/29/2013 02/05/2017 Overview: L mandaeism-2013 DM type 2 causing eye disease 06/02/2013 [...] on file documented as of this encounter Last Filed Vital Signs Vital Sign Reading Time Taken Comments Blood Pressure 152/78 02/24/2023 1:46 PM EDT Pulse 88 02/24/2023 1:46 PM EDT Temperature 36.6 C (97.8 F) 02/24/2023 1:46 PM ED T Respiratory Rate 16 02/24/2023 1:46 PM EDT Oxygen Saturation 96% 02/24/2023 1:46 PM EDT Inhaled Oxygen Concentration - - Weight 73.4 kg (161 lb 12.8 oz) 02/24/2023 1:46 PM EDT Height - - Body Mass Index 24.6 11/12/2021 2:22 PM EDT documented in this encounter Progress Notes * Amanda Hidalgo, - 02/24/2023 1:47 PM EDT Subjective: Jesús Vences is a 82 year old male. Chief Complaint Patient presents with Re-Check Pt denies any concerns at this time. HPI: Jesús Vences presents today for routine follow up. He recently had blood work completed. A1c is down to 8.0. Only one low blood sugar. He has also changed his diet. BP is a bit high here today. He attributes this to drinking 2 cups of coffee before coming in. BP at home runs in the 130-140s over 60-70. This has been validated previously. He would like to keep his blood pressure medicine where it is at and I think this is reasonable. He got his covid booster 01/29/23 at [facility] pharmacy. He denies chest pain or heaviness, cough, SOB, abd pain, n/v/d/c, LE edema, COLLAZO, lightheadedness, dizziness, or mood problems. (+) sinus congestion, occ urinary incontinence at night PMH: Patient Active Problem List Diagnosis Code Hyperlipidemia with target LDL less than 70 E78.5 Mild nonproliferative diabetic retinopathy (HCC) E11.3299 DM type 2 causing neurological disease (HCC) E11.49 AK (actinic keratosis) L57.0 H/O nonmelanoma skin cancer Z85.828 Anemia D64.9 HTN, goal below 140/90 I10 Type 2 diabetes mellitus with diabetic cataract (HCC) E11.36 Hydrocele in adult N43.3 Type 2 diabetes mellitus with hemoglobin A1c goal of less than 8.0% ([facility]) E11.9 Nonrheumatic aortic valve stenosis I35.0 Current Outpatient Medications Medication Sig Dispense Refill LANCETS [facility] Use as directed dx 250.[address] Ergocalciferol (VITAMIN D2) 400 UNITS TABS Take by mouth. Multiple Vitamins-Minerals (MULTIVITAMIN ADULT) TABS Take by mouth. ferrous sulfate (FEOSOL) 325 (65 FE) MG Tablet Take 1 Tablet by mouth in the morning. 60 Tab 11 Atorvastatin Calcium 20 MG Oral Tablet (Lipitor) Take by mouth 1 Tablet in the morning. 90 Tablet 3 Lisinopril 10 MG Oral Tablet (Prinivil) Take by mouth 1 Tablet in the morning. 90 Tablet 3 metFORMIN HCl 1000 MG Oral Tablet (Glucophage) TAKE ONE TABLET BY MOUTH TWICE DAILY WITH MORNING AND EVENING MEALS 180 Tablet 3 glipiZIDE ER 10 MG Oral Tablet Extended Release 24 Hour (glipiZIDE XL) Take 1 Tablet by mouth in the morning. 30 minutes before a meal.. 90 Tablet 1 Fabian Contour Test In Vitro Strip (Glucose Blood) Test once daily Dx code E11.9 100 Strip 5 glipiZIDE ER 5 MG Oral Tablet Extended Release 24 Hour (glipiZIDE XL) Take 1 Tablet by mouth in themorning. Take along with 10 mg tablet to equal 15 mg daily. 30 minutes before a meal.. 90 Tablet 1 No current facility-administered medications for this visit. Review of patient's allergies indicates: Allergen Reactions Amoxicillin Rash rash Objective: BP 152/78 | Pulse 88 | Temp 36.6 C (97.8 F) | Resp 16 | Wt 73.4 kg (161 lb 12.8 oz) | SpO2 96% | BMI 24.60 kg/m | BSA 1.88 m General: alert, healthy, no distress, well nourished, and well developed Neck: supple, no adenopathy, thyroid normal size, non-tender, without nodularity Heart: regular rate & rhythm and no murmur Lungs: chest symmetric with normal AP diameter, no chest deformities noted, normal respiratory rateand rhythm, lungs clear to auscultation Abdomen: abdomen soft and non-tender Extremities: no joint deformities, effusion, or inflammation, no edema Neuro Exam: alert & oriented x 3 with fluent speech, no focal motor/sensory deficits, gait normal Skin: skin color, texture, turgor are normal, no rashes or significant lesions ASSESSMENT/PLAN: Type 2 diabetes mellitus with hemoglobin A1c goal of less than 8.0% ([facility]) (Primary) - blood sugars are improved. He is going to meet with [facility] today to see about starting Jardiance, which I think is reasonable. He has made good progress improving his A1c in the past 6 months. - HEMOGLOBIN A1C; Future; Expected date: 08/25/2023 - ALBUMIN / CREATININE RATIO, URINE; Future; Expected date: 08/25/2023 Hyperlipidemia with target LDL less than 70 - continue atorvastatin. At goal. - LIPID PANEL WITH DIRECT LDL IF TG IS HIGH; Future; Expected date: 08/25/2023 HTN, goal below 140/90 - borderline high on home readings. He would like to continue the same dose of medicine for now. Could consider increasing lisinopril to 20 mg. - BASIC METABOLIC PANEL; Future; Expected date: 08/25/2023 Iron deficiency anemia, unspecified iron deficiency anemia type - anemia has been present since 2018. B12, folate, iron levels are all okay. Special screening for malignant neoplasms, colon - FECAL OCCULT BLOOD, EIA; Future; Expected date: 08/25/2023 Follow-up: Return in about 6 months (around 08/25/2023). | Check-out note: Labs prior to next appointment. Amanda Hidalgo DO documented in this encounter Plan of Treatment Upcoming Encounters Date Type Department Care Team (Late st Contact Info) Description 02/24/2023 2:40 PM EDT Office Visit Pharmacy, [address] [place] [phone] [place] [phone] Medication Therapy Disease Management Clinic - Diabetes Management 04/06/2023 1:45 PM EST Office Visit Ophthalmology, [facility] [address] [place] [address] Connor Knowles DO [address] [place] [address] 05/19/2023 1:40 PM EST Office Visit Dermatology [address] [place] [address] Lizeth Reardon PA-C [address] [place] [address] [place] [address] 09/29/2023 9:30 AM EDT Office Visit Family Medicine [address] [place] [phone] Amanda Hidalgo DO [address] [place] [address] [place] [phone] Scheduled Orders Name Type Priority Associated Diagnoses Orde r Schedule FECAL OCCULT BLOOD, EIA Lab Routine Special screening for malignant neoplasms, colon Expected: 08/25/2023 (Approximate), Expires: 02/24/2024 LIPID PANEL WITH DIRECT LDL IF TG IS HIGH Lab Routine Hyperlipidemia with target LDL less than 70 Expected: 08/25/2023 (Approximate), Expires: 02/25/2024 BASIC METABOLIC PANEL Lab Routine HTN, goal below 140/90 Expected: 08/25/2023 (Approximate), Expires: 02/24/2024 HEMOGLOBIN A1C Lab Routine Type 2 diabetes mellitus with hemoglobin A1c goal of less than 8.0% (HCC) Expected: 08/25/2023 (Approximate), Expires: 02/24/2024 ALBUMIN / CREATININE RATIO, URINE Lab Routine Type 2 diabetes mellitus with hemoglobin A1c goal of less than 8.0% (HCC) Expected: 08/25/2023 (Approximate), Expires: 02/24/2024 Health Maintenance Due Date Last Done Comments [...] goal of less than 8.0% (HCC)- Primary Hyperlipidemia with target LDL less than 70 Other and unspecified hyperlipidemia HTN, goal below 140/90 Unspecified essential hypertension Iron deficiency anemia, unspecified iron deficiency anemia type Special screening for malignant neoplasms, colon documented in this encounter Care Teams E Commerce Strategist Relationship Specialty Start Date End Date Amanda Hidalgo DO [address] [place] [address] [place] [phone] PCP - General Internal Medicine 08/18/18 documented as of this encounter"
--- OUTSIDE RECORDS SUMMARY | 2023-03-27 22:06 | External Medical Summary ---
Author Name Unknown Address Unknown Organization K01:LABORATORY [facility] [place] - [address] [place] [address] Laboratory Report Ordering Provider Test Date Status JENNIFER VALDIVIA 02/23/2023 10:34:05 Final Observation Date Value Abnormality Reference (Units ) Status Ferritin 02/23/2023 10:34:05 46 30-400 (ng /mL) Final Performing Location LABORATORY [facility] - [address] [place] [address]
--- OUTSIDE RECORDS SUMMARY | 2023-03-27 22:06 | External Medical Summary ---
Author Name Unknown Address Unknown Organization K01:LABORATORY [facility] [place] - [address] [place] [address] Laboratory Report Ordering Provider Test Date Status JENNIFER VALDIVIA 02/23/2023 10:34:05 Final Observation Date Value Abnormality Reference (Units ) Status Folic Acid 02/23/2023 10:34:05 >20.0 >4.5 (ng/ mL) Final Performing Location LABORATORY [facility] [place] - [address] [place] [address]
--- OUTSIDE RECORDS SUMMARY | 2023-03-27 22:07 | External Medical Summary | Summary of Care ---
Author Name Unknown Organization [facility] Address [address] [place] [address] Phone [phone] Care Team Providers Care Photogeologist Name Role Phone Amanda Hidalgo DO Primary Care Provider Reason for Visit * Reason Comments Dosage Adjustment In Person (Anticoag Cl inic) Diabetes Follow-Up Encounter Details Date Type Department Care Team Description 01/06/2023 Office Visit Pharmacy, [address] [place] [phone] [place] [address] Type 2 diabetes mellitus with hemoglobin A1c goal of less than 8.0% ([facility])*; DM type 2 causing neurological disease ([facility]) Allergies Active Allergy Reactions Severity Noted Date Comments Amoxicillin Rash High 11/18/2009 rash documented as of this encounter (statuses as of 01/06/2023) Medications Medication Sig Dispensed Refills Start Date [...] 90 Tablet 1 11/16/2022 Active Dexcom G7 Sales Team Leader Device Use as directed 1 Each 0 12/09/2022 Active Dexcom G7 Sensor Use as directed. Change every 10 days. 3 Each 3 12/09/2022 Active documented as of this encounter (statuses as of 01/06/2023) Active Problems Problem Noted Date Type 2 diabetes mellitus with hemoglobin A1c goal of less than 8.0% 08/14/2022 Nonrheumatic aortic valve stenosis 08/14 Overview: Very mild 02/2020 Hydrocele in adult 08/30/2020 Overview: Dr. García - [facility] [place] Type 2 diabetes mellitus with diabetic c ataract 08/23/2018 Anemia 02/23/2018 HTN, goal below 140/90 02/23/2018 H/O nonmelanoma skin cancer 10/28/2016 Overview: BCC (L anabaptist, L central frontal scalp 05/16) AK (actinic keratosis) 03/02/2016 DM type 2 causing neurological disease 0 09/20/2014 Mild nonproliferative diabetic retinopat hy 06/19/2014 Hyperlipidemia with target LDL less than 70 11/18/2009 documented as of this encounter (statuses as of 01/06/2023) Resolved Problems Problem Noted Date Resolved Date Degenerative disc disease, cervical 07/29/2016 02/05/2017 Type 2 diabetes mellitus wit h hemoglobin A1c goal of less than 7.5% 07/16/2016 08/14/2022 Lumbar degenerative disc disease 05/25/2016 02/05/2017 Primary osteoarthritis of both hips 05/25/2016 02/05/2017 Type 2 diabetes mellitus wit h hemoglobin A1c goal of less than 7.0% 03/25/2015 07/25/2016 Overview: ICD-10 update of inactive term Peripheral sensory neuropathy 03/25/2015 Balance disorder 09/20/2014 07/29/2016 BCC (basal cell carcinoma), face 11/29/2013 02/05/2017 Overview: Edgar palaciosanabaptist-2013 DM type 2 causing eye disease 06/02/2013 Type 2 diabetes mellitus wit h hemoglobin A1c goal of less than 8.0% 08/23/2012 03/25/2015 Overview: ICD-10 update of inactive term Type 2 diabetes mellitus wit h hemoglobin A1c goal of less than 7.0% 11/18/2009 08/23/2012 Overview: ICD-10 update of inactive term Diabetic polyneuropathy 11/18/2009 03/25/20 15 Overview: ICD-10 update of inactive term documented as of this encounter (statuses as of 01/06/2023) Immunizations Name Administration Dates Next Due COVID-19 mRNA, LNP-s, No Pre serve, 2-Dose Series (Moderna) 11/28/2021,06/26/2020,05/23/2020 COVID-19, mRNA, LNP-s, PF, B ooster, 100mcg/0.5mg (Moderna) 02/24/2021 Covid-19, Mrna, Lnp-s, Pf, B ivalent, 50 Mcg, IM, 12 yrs and above (Moderna) 02/09/2022 Pneumococcal Conjugate Vacc, 13 Valent (Prevnar) 09/20/2014 Pneumococcal Polysaccharide PPV23 (Pneumovax) 12/25/2009,11/18/2009(Deferred: Patient Refused) Seasonal Influenza, PF, 6 mo ns & Above, IM , (Flulaval) 02/23/2018,02/05/2017 Seasonal Influenza, Quadriva lent Hd (Fluzone Hd) [...] drink = 0.6 oz pur e alcohol) Food Insecurity Answer Date Recorded Within the past 12 months, y ou worried that your food would run out before you got money to buy more. Never true 12/26/2019 Within the past 12 months, t he food you bought just didn't last and you didn't have money to get more. Never true 12/26/2019 Sex Assigned at Date Recorded Not on file Job Start Date Occupation Industry Not on file Not on file Not on file documented as of this encounter Progress Notes * Brook Beltrán, [facility] - 01/06/2023 1:37 PM EDT Medication Therapy Disease Management Clinic [...] Target A1c < 8% Medication Injection Site: Abdomen Lifestyle: Diet: unchanged Glucose Review/SMBG: BG log not available Hypoglycemia: Does your blood sugar go below 70 mg/dL? Denies Hyperglycemia symptoms present: none Recent Labs Units 11/12/22 0946 08/12/22 1043 02/11/22 1018 HEMOGLOBIN A1C - [facility] % 8.4* 9.2* 7.8* Recent Labs Units 08/12/22 1043 02/11/22 1018 08/15/21 1009 ESTIMATED GLOMERULAR FILTRATION RATE - [facility] mL/min >90 >90 >90 CREATININE - [facility] mg/dL 0.7 0.7 0.7 HYPERTENSION: Patient on ACEi/ARB: yes BP Readings from Last 3 Encounters: 11/16/22 136/68 08/14/22 134/70 02/18/22 142/72 Blood pressure at goal: yes HYPERLIPIDEMIA: Patient is taking moderate or high intensity statin: yes HEALTH MAINTENANCE REVIEW: Health Maintenance Due Topic Date Due Influenza Vaccine (FLU shot) (1) 12/25/2022 FOBT ANNUALLY,AGES 18-90 01/15/2023 ASSESSMENT & PLAN: ICD-10-CM 1. Type 2 diabetes mellitus with hemoglobin A1c goal of less than 8.0% (HCC) E11.9 2. DM type 2 causing neurological disease (HCC) E11.49 Considerations: NO RX COVERAGE PACE? Retinopathy, following with Dr Knowles BG Readings - Blood sugars not available. Unable to obtain Dexcom as patient is not on insulin. Medications - Reviewed current regimen, patient is adherent to regimen. Tolerating well. Reviewed Glipizide with patient. We discussed the hypoglycemia risk of this class of medications, patient denies any recent s/sx of this. Also discussed the risk of pancreatic burnout. As discussed in previous encounters, patient states he does not have any Rx coverage. Paying out ofpocket for current medications, limiting the option for new/more expensive therapies. Report he feels he is slightly over PACENET but did not apply. Encouraged to do so. Per chart review and patient report, SGLT2 therapy had been discussed int he past. However unable to obtain due to cost. Provided with [employer]ares PAP application to complete and return to clinic. Hopeful will be able to obtain Jardiance and reduce/eliminate need for Glipizide. Educated patient on Jardiance. Reviewed cardiovascular benefits with patient. Last BMP showed kidney function was appropriate. Diet, Exercise, Lifestyle - No significant lifestyle changes since last visit. Patient is agreeable to SMBG 1-3 time(s) daily. Patient aware to contact clinic if any hypoglycemia before next visit. MEDICATION CHANGES: no change Diabetic Medications: Glipizide ER 15 mg daily in the AM (5mg +10mg tablets) Metformin HCl 1000mg BID eGFR >90 as of 08/12/22 Target A1c < 8% HEALTH MAINTENANCE INTERVENTIONS: Labs: Up to Date Immunizations: Up to Date Foot Exam: Up to Date Eye Exam: Up to Date Annual Wellness Visit: Due FOLLOW UP: Return to clinic in 7 weeks w/ PCP 02/24/2023 Brook Beltrán RPh Clinical Pharmacist - Fine Grade Operator Medication Therapy Management Clinic 01/06/2023, 1:37 PM documented in this encounter Plan of Treatment Upcoming Encounters Date Type Specialty Care Team Description 02/24/2023 Office Visit Family Medicine Amanda Hidalgo [address] [place] [phone] 02/24/2023 Office Visit [address] [place] [phone] 04/06/2023 Office Visit Ophthalmology Connor Knowles, DO [address] [place] [address] 05/19/2023 Office Visit Dermatology Lizeth Reardon PA-C [address] [place] [address] [place] [address] Health Maintenance Due Date Last Done Comments Influenza Vaccine (FLU shot) (#1) 2022 02/09/2022, 01/10/2021, 01/26/2020, Additional history exists FOBT ANNUALLY,AGES 18-90 01/15/2023 022, 09/16/2020, 03/09/2019, Additional history exists B-12 02/11/2023 02/11/2022, 07/26, 02/26/2020, Additional history exists DIABETES-EYE EXAM 03/25/2023 03/25/2022 (Do ne elsewhere), 06/16/2021, 03/17/2021, [...] 12/25/2009 Zoster Vaccines Completed 09/30/2020, 11/25, 02/24/2013 COVID-19 Vaccine Completed 02/09/2022, 08/2021, 02/24/2021, Additional history exists GARDASIL-HPV IMMUNIZATION SERIES Aged Out No longer eligible based on patient's age to complete this topic Hepatitis B Aged Out No longer eligi ble based on patient's age to complete this topic MENINGOCOCCAL (MENACTRA/MENVEO) Aged Out No longer eligible based on patient's age to complete this topic documented as of this encounter Medical Devices Not on filedocumented as of this encounter Visit Diagnoses Diagnosis Type 2 diabetes mellitus with hemoglobin A1c goal of less than 8.0% (HCC)- Primary DM type 2 causing neurological disease (HCC) Type II or unspecified type diabetes mellitus with neurological manifestations, not stated as uncontrolled documented in this encounter Care Teams Photogeologist Relationship Specialty Start Date End Date Amanda Hidalgo, [address] [place] [address] PCP - General Internal Medicine 08/18/18 documented as of this encounter
--- OUTSIDE RECORDS SUMMARY | 2023-03-27 22:07 | External Medical Summary | Summary of Care ---
Author Name Unknown Organization [facility] Address [address] [facility] [place] [address] Phone [phone] Care Team Providers Care Aerospace Mechanic Name Role Phone Amanda Hidalgo DO Primary Care Provider Reason for Visit * Reason Onset Date Comments Other 12/09/2022 Encounter Details Date Type Department Care Team Description 12/09/2022 Telephone Pharmacy Call Center [phone] [facility] [place] [phone] [place] [phone] Other Allergies Active Allergy Reactions Severity Noted Date Comments Amoxicillin Rash High 11/18/2009 rash documented as of this encounter (statuses as of 12/09/2022) Medications Medication Sig Dispensed Refills Start Date [...] 90 Tablet 1 11/16/2022 Active Dexcom G7 A P Mechanic Device Use as directed 1 Each 0 12/09/2022 Active Dexcom G7 Sensor Use as directed. Change every 10 days. 3 Each 3 12/09/2022 Active documented as of this encounter (statuses as of 12/09/2022) Active Problems Problem Noted Date Type 2 diabetes mellitus with hemoglobin A1c goal of less than 8.0% 08/14/2022 Nonrheumatic aortic valve stenosis 08/14 Overview: Very mild 02/2020 Hydrocele in adult 08/30/2020 Overview: Dr. 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) AK (actinic keratosis) 03/02/2016 DM type 2 causing neurological disease 0 09/20/2014 Mild nonproliferative diabetic retinopat hy 06/19/2014 Hyperlipidemia with target LDL less than 70 11/18/2009 documented as of this encounter (statuses as of 12/09/2022) Resolved Problems Problem Noted Date Resolved Date [...] cell carcinoma), face 11/29/2013 02/05/2017 Overview: L moravian-2013 DM type 2 causing eye disease 06/02/2013 [...] as of this encounter (statuses as of 12/09/2022) Immunizations Name Administration Dates Next Due COVID-19 mRNA, LNP-s, No Pre serve, 2-Dose Series (Moderna) 11/28/2021,06/26/2020,05/23/2020 Covid-19 Mrna, Lnp-s, No Pre serve, Booster (Moderna) 02/24/2021 Covid-19, Mrna, Lnp-s, Pf, B ivalent, 50 Mcg, IM, 12 yrs and above (Moderna) 02/09/2022 Pneumococcal Conjugate Vacc, 13 Valent (Prevnar) 09/20/2014 Pneumococcal Polysaccharide PPV23 (Pneumovax) 12/25/2009,11/18/2009(Deferred: Patient Refused) Seasonal Influenza, Quadriva lent Hd (Fluzone Hd) 01/10/2021 Seasonal Influenza, Quadriva lent Hd, 65+ Yrs 01/26/2020 Seasonal Influenza, Quadriva lent, No Preserve, 6 Mons & Above, IM 02/23/2018,02/05/2017 Seasonal Influenza, Quadriva lent, No Preserve, IM [...] Miscellaneous Notes * Telephone Encounter - Brook Beltrán, [facility] - 12/09/2022 3:52 PM EDT Patient Phone Numbers Returned patient's call. Reports he is slightly over the income for InfluAds. Insurance will not cover CGM therapy due to patient not being on insulin. He is interested in paying out of pocket for CGM. Discussed that the reader would be a one time cost, then the sensor would need reapplied every 10 days. Will plan to send to pharmacy in order to assess out of pocket cost. If he would like to proceed he is instructed to contact clinic to further discuss placement. Of note, patient is a . Not [facility]. Reports he may look into this to help with additional coverage/drug benefits. Brook Beltrán [facility], PharmD Clinical Pharmacist - Auto Headlight Mechanic Medication Therapy Disease Management Clinic 12/09/2022, 3:55 PM Ph.[phone] * Telephone Encounter - CINTIA Taylor - 12/09/2022 12:42 PM EDT Caller's name: Jesús Preferred call back number(OFFICE NUMBER FOR ): [phone] Reason for call: Patient requesting a call back from [facility]. Patient states this is in regards to the CGM. He states that [facility] [employer] has denied the claim and he does not qualify for [employer]. Patient also states he has been looking on line at the Dexcom and would like to purchase out of pocket. Please call back to discuss this with patient. Thank you, Diane Salter Fiberglass Model Maker [facility] 12/09/2022,12:42 PM documented in this encounter Plan of Treatment Upcoming Encounters Date Type Specialty Care Team Description 01/05/2023 Office Visit Ophthalmology Connor Knowles, DO [address] [place] [address] 01/06/2023 Office Visit Pharmacy [address] [place] [phone] 02/24/2023 Office Visit Family Medicine Amanda Hidalgo [address] [place] [address] 05/19/2023 Office Visit Dermatology Lizeth Reardon PA-C [address] [place] [address] [place] [phone] Health Maintenance Due Date Last Done Comments [...] 08/13/2023 08/12/2022, 01/24, 08/15/2021, Additional history exists DIABETES-FOOT EXAM 08/15/2023 08/14/2022, 0 08/22/2021, 08/30/2020, Additional history exists Depression Screening, Annual for Pts 12 and Over 08/15/2023 08/14/2022 DTaP,Tdap,and Td Vaccines (2 - Td or [...] filedocumented as of this encounter Care Teams Aerospace Mechanic Relationship Specialty Start Date End Date Amanda Hidalgo, [address] [place] [address] PCP - General Internal Medicine 08/18/18 documented as of this encounter
--- OUTSIDE RECORDS SUMMARY | 2023-03-27 22:07 | External Medical Summary ---
Author Name Unknown Address Unknown Organization [id number]:LABORATORY [facility] [place] - [facility][note 3] [address] [facility] [address] Laboratory Report Ordering Provider Test Date Status JENNIFER VALDIVIA 02/23/2023 10:34:05 Final Observation Date Value Abnormality Reference (Units ) Status Retic, % (auto) 02/23/2023 10:34:05 0.99 0.80-1.90 (%) Final Reticulocytes, Absolute 02/23/2023 10:34:05 38.6 31.3-100.1 (K/uL) Final Reticulocyte fraction, immature 02/23/2023 10:34:05 8.1 2.5-20.6 (%) Final Reticulocyte HGB 02/23/2023 10:34:05 37.1 29.7-37.4 (pg) Final Performing Location LABORATORY [facility] [place] - [address] [facility] [address]
--- OUTSIDE RECORDS SUMMARY | 2023-03-27 22:07 | External Medical Summary ---
Author Name Unknown Address Unknown Organization [id number]:[facility] [place] [address] [facility] [address] Laboratory Report Ordering Provider Test Date Status JENNIFER VALDIVIA 02/23/2023 10:34:05 Final Observation Date Value Abnormality Reference (Units ) Status TSH 02/23/2023 10:34:05 1.36 0.27-4.20 (uIU/mL) Final Performing Location [facility] [place] - [address] [facility] [address]
--- OUTSIDE RECORDS SUMMARY | 2023-03-27 22:07 | External Medical Summary ---
Author Name Unknown Address Unknown Organization [id number]:[facility] [place] [address] [facility] [address] Laboratory Report Ordering Provider Test Date Status JENNIFER VALDIVIA 11/12/2022 09:46:13 Final Observation Date Value Abnormality Reference (Units ) Status HbA1C 11/12/2022 09:46:13 8.4 Above high normal 4. 0-5.6 (%) Final The use of HbA1c to monitor glycemic status is based on normal hemoglobin and HbA composition. This test should not be used in patients with abnormal hemoglobin that affects the half life of the red blood cell or the in vivo glycation rates. Glucose, estimated average 11/12/2022 09:46:13 194 Above high normal <126 (mg/dL) Eugene rivas Performing Location [facility] [place] - [address] [facility] [address]
--- OUTSIDE RECORDS SUMMARY | 2023-03-27 22:07 | External Medical Summary | Summary of Care ---
Author Name Unknown Organization [facility] Address [address] [place] [address] Phone [phone] Care Team Providers Care Library Science Professor Name Role Phone Amanda Hidalgo DO Primary Care Provider + [phone] Reason for Referral * Evaluate & Treat - Unlimited Visits (Within 30 days (routine)) - Authorized Specialty Diagnoses / Procedures Referred By Contac t Referred To Contact Pharmacist / Pharmacy Diagnoses Type 2 diabetes mellitus with hemoglobin A1c goal of less than 8.0% ([facility]) Yoon Perez PA-C [address] [place] [address] [place] [id number] Referral ID Status Reason Start Date Expiration Date Visits Requested Visits Authorized [id number] Authorized Specialty Services Required 11/16/2022 99 99 Question Answer Referral Priority Within 30 days (routine) Department: Primary Care Reason for Referral: DM Target A1c: < 8 Comments CGM interest as well Pharmacist Medication Therapy Management: Minimum frequency patient should be seen in person for medication management: as appropriate per clinical condition and patient status By my signature, I understand that my patient Jesús Vences will have his medication therapy managed by the [facility] ([facility]) per established policies, procedures, and protocols. I also certify that this referral may serve as an initiation of service for the management of drug therapy in the above noted patient. [facility] providers will be responsible for scheduling patient visits, obtaining appropriate laboratory studies, and adjusting medication management therapy per patient's need, in addition to those roles spelled out in the clinic policy, procedures, and drug management protocols. I understand that the service provided by the [facility] is voluntary and have informed patient that they can refuse the service at their discretion. I am aware that the [facility] will provide me with a copy of the patient encounter via [facility]. I authorize the [facility] to carry out these activities on my behalf. I consider this program to be a necessary part of the patient's medical care. Yoon Perez PA-C Reason for Visit * Reason Comments Re-Check Encounter Details Date Type Department Care Team Description 11/16/2022 Office Visit Family Medicine [address] [place] [address] Yoon Perez PA-C [address] [place] [address] [place] [address] Type 2 diabetes mellitus with hemoglobin A1c goal of less than 8.0% ([facility])*; Hyperlipidemia with target LDL less than 70; DM type 2 causing neurological disease ([facility]); Type 2 diabetes mellitus with diabetic cataract, without long-term current use of insulin ([facility]); HTN, goal below 140/90; Nonrheumatic aortic valve stenosis; Both eyes affected by mild nonproliferative diabetic retinopathy with macular edema, associated with type 2 diabetes mellitus ([facility]) Allergies Active Allergy Reactions Severity Noted Date Comments Amoxicillin Rash High 11/18/2009 rash documented as of this encounter (statuses as of 11/16/2022) Medications Medication Sig Dispensed Refills Start Date End Date Status LANCETS MISCIndications:D M type 2, goal A1c below 7 Use [...] Active Atorvastatin Calcium 20 MG Oral Tablet (Lipitor)Indicati ons:Dyslipidemia, goal LDL below 100 Take by mouth 1 Tablet in the morning. 90 Tablet 3 02/18/2022 Active Lisinopril 10 MG Oral Tablet (Prinivil)Indicat ions:HTN, goal below 140/90 Take by mouth 1 Tablet in the morning. 90 Tablet 3 02/18/2022 Active metFORMIN HCl 1000 MG Oral Tablet (Glucophage)Indic ations:Type 2 diabetes mellitus with hemoglobin A1c goal [...] Oral Tablet Extended Release 24 Hour (glipiZIDE XL)Indications:Ty pe 2 diabetes mellitus with hemoglobin A1c goal of less than 8.0% (HCC) Take 1 Tablet by mouth in the morning. Take along with 10 mg tablet to equal 15 mg daily. 30 minutes before a meal.. 90 Tablet 1 11/16/2022 Active glipiZIDE ER 2.5 MG Oral Tablet Extended Release 24 Hour (glipiZIDE XL) Take 1 Tablet by mouth in the morning. 30 minutes before a meal.. 90 Tablet 1 08/14/2022 11/16/2022 Discontinued (Medication/ Dose Changed) glipiZIDE 10 MG Oral Tablet (Glucotrol) Take 12 mg by mouth in the morning. 0 11/16/2022 Discontinued (Medication List Clean Up) documented as of this encounter (statuses as of 11/16/2022) Active Problems Problem Noted Date Type 2 diabetes mellitus with hemoglobin A1c goal of less than 8.0% 08/14/2022 Nonrheumatic aortic valve stenosis 08/14 Overview: Very mild 02/2020 Hydrocele in adult 08/30/2020 Overview: Dr. García [place] [facility] [place] Type 2 diabetes mellitus with diabetic c ataract 08/23/2018 Anemia 02/23/2018 HTN, goal below 140/90 02/23/2018 H/O nonmelanoma skin cancer 10/28/2016 Overview: BCC (L church, L central frontal scalp 05/16) AK (actinic keratosis) 03/02/2016 DM type 2 causing neurological disease 0 09/20/2014 Mild nonproliferative diabetic retinopat hy 06/19/2014 Hyperlipidemia with target LDL less than 70 11/18/2009 documented as of this encounter (statuses as of 11/16/2022) Resolved Problems Problem Noted Date Resolved Date [...] cell carcinoma), face 11/29/2013 02/05/2017 Overview: L church-2013 DM type 2 causing eye disease 06/02/2013 [...] as of this encounter (statuses as of 11/16/2022) Immunizations Name Administration Dates Next Due COVID-19 [...] Sign Reading Time Taken Comments Blood Pressure 136/68 11/16/2022 11:14 AM EDT Pulse 88 11/16/2022 11:14 AM EDT Temperature 36.4 C (97.5 F) 11/16/2022 11:14 AM E DT Respiratory Rate - - Oxygen Saturation 99% 11/16/2022 11:14 AM EDT Inhaled Oxygen Concentration - - Weight 74.7 kg (164 lb 9.6 oz) 11/16/2022 11:14 AM EDT Height - - Body Mass Index 25.03 11/12/2021 2:22 PM EDT documented in this encounter Progress Notes * Yoon Perez PA-C - 11/16/2022 11:20 AM EDT Images from the original note were not included. History of Present Illness Bassam Vences is a 82 year old male that presents for Re-Check Nursing Notes: Promise Castellanos CMA 11/16/22 1127 Signed He is here for a recheck today. He has no problems or concerns today. Brief Clinical History Mr. Vences is an 82 year old man last seen in Family Medicine 3 months ago (08-14-22). He has h/o chronic diabetic complication, DM type 2 causing neurological disease (HCC), Mild nonproliferative diabetic retinopathy (HCC), and Type 2 diabetes mellitus with diabetic cataract (HCC). HPI: Jesús Vences is a 82 year old male presenting to the office today for recheck. When he is checking his fasting sugar has been anywhere from 120-150 usually. He hasn't had any lowsugars. A1C was down from 9.2 to 8.4. He has had no low sugars. He otherwise is doing well. He would like to look into the possibility of a CGM. Discussed MTM today. He is interested. Reviewed record/notes including: Ophthalmology The patient denies appetite changes, SOB, AHUJA, chest pain, abdominal pain, N/V/D/C, urinary symptoms, or peripheral edema. Current Outpatient Medications Medication Instructions atorvaSTATin (LIPITOR) 20 mg, Oral, Daily(AM) Fabian Contour Test In Vitro Strip (Glucose Blood) Test once daily Dx code E11.9 Ergocalciferol (VITAMIN D2) 400 UNITS TABS Oral Ferrous Sulfate (FEOSOL) 325 mg, Oral, Daily(AM) glipiZIDE XL (GLIPIZIDE XL) 2.5 mg, Oral, Daily(AM), 30 minutes before a meal. glipiZIDE XL (GLIPIZIDE XL) 10 mg, Oral, Daily(AM), 30 minutes before a meal. LANCETS MISC Use as directed dx 250.00 Lisinopril (PRINIVIL) 10 mg, Oral, Daily(AM) metFORMIN HCl 1000 MG Oral Tablet (Glucophage) TAKE ONE TABLET BY MOUTH TWICE DAILY WITH MORNING AND EVENING MEALS Multiple Vitamins-Minerals (MULTIVITAMIN ADULT) TABS Oral Med list reviewed by me today. Physical Exam Vitals: 11/16/22 1114 Temp: 36.4 C (97.5 F) Pulse: 88 SpO2: 99% BP: 136/68 Physical exam: General: Well-Developed. Well appearing. No acute distress. HENT: Normocephalic. Atraumatic. Hearing normal. Eyes: EOMI. Sclera without erythema or icterus. No discharge. Pupils equal, round, reactive to light. Neck: No tracheal deviation. ROM intact. No stridor. No thyromegaly noted. No carotid bruits. Without adenopathy. Non-tender. Cardiovascular: RRR. Normal S1/S2 noted. Soft systolic murmur. Pulmonary: No respiratory distress. No accessory muscle use. No adventitious sounds appreciated. Normal breath sounds. Musculoskeletal: ROM intact and appears normal. No gait disturbance. No edema or cyanosis. No calf tenderness. Neurologic: Alert. Oriented x 3. Appears stated age. CN 2-12 grossly intact. Skin: Warm and dry. No apparent rashes or ecchymoses. No jaundice or pallor noted. Psych: Mood and affect normal. I have reviewed the following results: CMP, Lipid Panel, Hemoglobin A1C and CBC Assessment and Plan Type 2 diabetes mellitus with hemoglobin A1c goal of less than 8.0% ([facility]) Discussed options with the patient to further decrease A1C. Discussed addition of Jardiance vs further increasing (cautiously) glipizide - glipiZIDE ER 5 MG Oral Tablet Extended Release 24 Hour (glipiZIDE XL); Take 1 Tablet by mouth in the morning. Take along with 10 mg tablet to equal 15 mg daily. 30 minutes before a meal.. - PHARMACIST MEDS THERAPY MGMT REFERRAL OP Hyperlipidemia with target LDL less than 70 Continue statin. Stable. 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 Continue same. Nonrheumatic aortic valve stenosis UTD on Echo. Both eyes affected by mild nonproliferative diabetic retinopathy with macular edema, associated with type 2 diabetes mellitus (HCC) Continue f/u with Ophthalmology Wrap-Up Check-out note: MTM F/U as scheduled or sooner PRN documented in this encounter Nursing Notes * Promise Castellanos CMA - 11/16/2022 11:13 AM EDT He is here for a recheck today. He has no problems or concerns today. documented in this encounter Plan of Treatment Upcoming Encounters Date Type Specialty Care Team Description 01/05/2023 Office Visit Ophthalmology Connor Knowles, DO [address] [place] [address] 02/24/2023 Office Visit Family Medicine Amanda Hidalgo [address] [place] [phone] 05/19/2023 Office Visit Dermatology Lizeth Reardon PA-C [address] [place] [address] [place] [phone] Scheduled Referrals Name Type Priority Associated Diagnoses Orde r Schedule PHARMACIST MEDS THERAPY MGMT REFERRAL OP Referral Within 30 days (routine) Type 2 diabetes mellitus with hemoglobin A1c goal of less than 8.0% (HCC) Ordered: 11/16/2022 Health Maintenance Due Date Last Done Comments Influenza Vaccine (FLU shot) (#1) 2022 02/09/2022, 01/10/2021, 01/26/2020, Additional history exists FOBT ANNUALLY,AGES 18-90 01/15/2023 022, 09/16/2020, 03/09/2019, Additional history exists B-12 02/11/2023 02/11/2022, 04/2 05/2021, 02/26/2020, Additional history exists DIABETES-EYE EXAM 03/25/2023 [...] less than 70 Other and unspecified hyperlipidemia DM type 2 causing neurological disease (HCC) Type II or unspecified type diabetes mellitus with neurological manifestations, not stated as uncontrolled Type 2 diabetes mellitus with diabetic cataract, without long-term current use of insulin (HCC) HTN, goal below 140/90 Unspecified essential hypertension Nonrheumatic aortic valve stenosis Aortic valve disorders Both eyes affected by mild nonproliferative diabetic retinopathy with macular edema, associated with type 2 diabetes mellitus (HCC) documented in this encounter Care Teams Library Science Professor Relationship Specialty Start Date End Date Amanda Hidalgo, [address] [place] [address] PCP - General Internal Medicine 08/18/18 documented as of this encounter
--- OUTSIDE RECORDS SUMMARY | 2023-03-27 22:07 | External Medical Summary ---
Author Name Unknown Address Unknown Organization [id number]:[facility] [place] [address] [facility] [address] Laboratory Report Ordering Provider Test Date Status JENNIFER VALDIVIA 02/23/2023 10:34:05 Final Observation Date Value Abnormality Reference (Units ) Status WBC, Total 02/23/2023 10:34:05 5.00 4.00-10.8 0 (K/uL) Final RBC 02/23/2023 10:34:05 3.95 4.50-5.25 (M/uL) Final Hemoglobin 02/23/2023 10:34:05 12.7 Below low normal 14 .0-16.8 (g/dL) Final Anemia reflex testing trigge rs on a HGB < 12.0 for Females and HGB < 13.0 for Males in accordance with the WHO Anemia Guidelines
Anemia reflex testing triggers on a HGB < 12.0 for Females and HGB < 13.0 for Males in accordance with the WHO Anemia Guidelines HCT 02/23/2023 10:34:05 40.2 40.0-48.4 (%) Final MCV 02/23/2023 10:34:05 101.8 82.0-99.5 (fL) Final MCH 02/23/2023 10:34:05 32.2 27.0-34.0 (pg) Final MCHC 02/23/2023 10:34:05 31.6 32.0-36.0 (g/dL) Final RDW 02/23/2023 10:34:05 13.1 11.5-15.5 (%) Final Platelets 02/23/2023 10:34:05 187 140-400 (K /uL) Final MPV 02/23/2023 10:34:05 11.3 6.6-11.1 ( fL) Final Nucleated erythrocytes/100 leukocytes [Ratio] in Blood by Automated count 02/23/2023 10:34:05 0 <=0 (/100 WBCs) Fi nal Performing Location [facility] [place] - [address] [facility] [address]
--- OUTSIDE RECORDS SUMMARY | 2023-03-27 22:07 | External Medical Summary | Summary of Care ---
Author Name Unknown Organization [facility] Address [address] [facility] [place] [address] Phone [phone] Care Team Providers Care It Systems Administrator Name Role Phone Amanda Hidalgo DO Primary Care Provider + [phone] Reason for Visit * Reason Comments Outpatient Testing Encounter Details Date Type Department Care Team Description 11/12/2022 Laboratory Laboratory [address] [place] [phone] [place] [address] Type 2 diabetes mellitus with hemoglobin A1c goal of less than 8.0% ([facility]) Allergies Active Allergy Reactions Severity Noted Date Comments Amoxicillin Rash High 11/18/2009 rash documented as of this encounter (statuses as of 11/12/2022) Medications Medication Sig Dispensed Refills Start Date [...] Active Atorvastatin Calcium 20 MG Oral Tablet (Lipitor)Indicatio ns:Dyslipidemia, goal LDL below 100 Take by mouth 1 Tablet in the morning. 90 Tablet 3 02/18/2022 Active Lisinopril 10 MG Oral Tablet (Prinivil)Indicati ons:HTN, goal below 140/90 Take by mouth 1 Tablet in the morning. 90 Tablet 3 02/18/2022 Active metFORMIN HCl 1000 MG Oral Tablet (Glucophage)Indica tions:Type 2 diabetes mellitus with hemoglobin A1c goal of less than 7.5% (HCC) TAKE ONE TABLET BY MOUTH TWICE DAILY WITH MORNING AND EVENING MEALS 180 Tablet 3 02/18/2022 Active glipiZIDE ER 2.5 MG Oral Tablet Extended Release 24 Hour (glipiZIDE XL) Take 1 Tablet by mouth in the morning. 30 minutes before a meal.. 90 Tablet 1 08/14/2022 Active Additional Information Patient not taking.Reported on 10/05/2022 glipiZIDE ER 10 MG Oral Tablet Extended Release 24 Hour (glipiZIDE XL) Take 1 Tablet by mouth in the morning. 30 minutes before a meal.. 90 Tablet 1 08/14/2022 Active Additional Information Patient not taking.Reported on 10/05/2022 Fabian Contour Test In Vitro Strip (Glucose Blood) Test once daily Dx code E11.9 100 Strip 5 08/31/2022 Active glipiZIDE 10 MG Oral Tablet (Glucotrol) Take 12 mg by mouth in the morning. 0 Active documented as of this encounter (statuses as of 11/12/2022) Active Problems Problem Noted Date Type 2 diabetes mellitus with hemoglobin A1c goal of less than 8.0% 08/14/2022 Nonrheumatic aortic valve stenosis 08/14 Overview: Very mild 02/2020 Hydrocele in adult 08/30/2020 Overview: Dr. García - [facility] [place] Type 2 diabetes mellitus with diabetic c ataract 08/23/2018 Anemia 02/23/2018 HTN, goal below 140/90 02/23/2018 H/O nonmelanoma skin cancer 10/28/2016 Overview: BCC (L anabaptism, L central frontal scalp 05/16) AK (actinic keratosis) 03/02/2016 DM type 2 causing neurological disease 0 09/20/2014 Mild nonproliferative diabetic retinopat hy 06/19/2014 Hyperlipidemia with target LDL less than 70 11/18/2009 documented as of this encounter (statuses as of 11/12/2022) Resolved Problems Problem Noted Date Resolved Date [...] cell carcinoma), face 11/29/2013 02/05/2017 Overview: L anabaptism-2013 DM type 2 causing eye disease 06/02/2013 [...] as of this encounter (statuses as of 11/12/2022) Immunizations Name Administration Dates Next Due COVID-19 [...] Encounters Date Type Specialty Care Team Description 11/16/2022 Office Visit Family Medicine Yoon Perez PA-C [address] [place] [address] [place] [phone] 01/05/2023 Office Visit Ophthalmology Connor Knowles, [address] [place] [address] 02/24/2023 Office Visit Family Medicine Amanda Hidalgo DO [address] [place] [address] [place] [phone] 05/19/2023 Office Visit Dermatology Lizeth Reardon PA-C [address] [place] [address] [place] [phone] Pending Results Name Type Priority Associated Diagnoses Date /Time HEMOGLOBIN A1C Lab Routine Type 2 diabetes mellitus with hemoglobin A1c goal of less than 8.0% ([facility]) 11/12/2022 9:46 AM EDT Health Maintenance Due Date Last Done Comments Influenza Vaccine (FLU shot) (#1) 2022 02/09/2022, 01/10/2021, 01/26/2020, Additional history exists FOBT ANNUALLY,AGES 18-90 01/15/2023 022, 09/16/2020, 03/09/2019, Additional history exists B-12 02/11/2023 02/11/2022, 07/26, 02/26/2020, Additional history exists HbA1c 02/11/2023 08/12/2022, 01/24, 08/15/2021, Additional history exists DIABETES-EYE EXAM 03/25/2023 03/25/2022 [...] Completed 09/20/2014, 12/25/2009 Zoster Vaccines Completed 09/30/2020, 08/07/2019, 02/24/2013 COVID-19 Vaccine Completed 02/09/2022, 08/2021, 02/24/2021, [...] A1c goal of less than 8.0% (HCC) documented in this encounter Care Teams It Systems Administrator Relationship Specialty Start Date End Date Amanda Hidalgo[address] [place] [address] PCP - General Internal Medicine 08/18/18 documented as of this encounter
--- OUTSIDE RECORDS SUMMARY | 2023-03-27 22:07 | External Medical Summary | Summary of Care ---
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 [facility] [place] 2 diabetes mellitus with diabetic c ataract 08/23/2018 Anemia 02/23/2018 HTN, goal below 140/90 02/23/2018 H/O nonmelanoma skin cancer 10/28/2016 Overview: BCC (L catholic, L central frontal scalp 05/16) AK (actinic keratosis) 03/02/2016 DM type 2 causing neurological disease 0 09/20/2014 Mild nonproliferative diabetic retinopat hy 06/19/2014 Hyperlipidemia with target LDL less than 70 11/18/2009 documented as of this encounter (statuses as of 10/05/2022) Resolved Problems Problem Noted Date Resolved Date [...] cell carcinoma), face 11/29/2013 02/05/2017 Overview: L catholic-2013 DM type 2 causing eye disease [...] as of this encounter (statuses as of 10/05/2022) Immunizations Name Administration Dates Next Due COVID-19 [...] Date Smoking Tobacco: Never Smokeless Tobacco: Never Tobacco Cessation:Counseling Given: No Alcohol Use Standard Drinks/Week Comments No 0 [...] as of this encounter Progress Notes * Connor Knowels DO - 10/05/2022 1:15 PM EDT [facility] [place] Nursing notes reviewed. Eye vitals reviewed. Mood and Affect: normal HPI: Jesús Vences is a 82 year old male who presents for evaluation of DR No other eye complaints. Denies significant pain. Base Eye Exam Visual Acuity (Snellen - Linear) Right Left Dist cc 20/40 +1 20/30 -2 Dist ph cc NI Correction: Glasses Tonometry (Tonopen, 1:38 PM) Right Left Pressure 22 22 Pupils Pupils Light Shape React APD Right PERRL 3 Round Brisk None Left PERRL 3 Round Brisk None Visual Hernandez (Counting fingers) Right Left Full Full Extraocular Movement Right Left Full Full Neuro/Psych Oriented x3: Yes Dilation Both eyes: 0.5% Proparacaine @ 1:38 PM Dilation #2 Both eyes: 1.0% Mydriacyl, 2.5% Phenylephrine @ 1:38 PM Dilation #3 Both eyes: 1.0% Mydriacyl, 2.5% Phenylephrine @ 1:40 PM EXTERNAL: The ocular adnexae are unremarkable. SLE: Lids/Lashes: wnl OU Conjunctiva/Sclera: quiet OU Cornea: clear OU Anterior Chamber: deep and quiet OU Iris: normal OU; no NVI OU Lens: 1-2+ mixed cataracts OU GONIOSCOPY: 12/18/2021 compared to 09/15/2021 OD: open to TM/SS, no NVA OS: open to TM/SS, no NVA Dilated fundus exam OD: vitreous: clear optic nerve: 0.1, no edema/pallor/NVD, +Hollenhorst plaque--stable macula: MACHINE STUFFER with microaneurysms, trace CSME vessels: AV ratio 1:2 periphery: trace choroidal folds, MACHINE STUFFER, no RT/RD Dilated fundus exam OS: vitreous: clear optic nerve: 0.1, no edema/pallor/NVD macula: MACHINE STUFFER with microaneurysms, no CSME vessels: wnl periphery: trace choroidal folds, MACHINE STUFFER, no RT/RD OCT Interpretation: OD: mild CIDME, no PVD - no change, prior improved 31um prior worse 39um, prior improved 35um priorimproved 18um, prior no sig change, prior no change, prior worse 63um, prior STABLE, prior [id number], prior mildly worse, prior no change, prior improved despite no intervention; no sig change OS: trace central dme, no PVD - worse 21um prior STABLE, prior STABLE, prior STABLE, prior STABLE, prior STABLE, prior STABLE, prior no change, prior stable, prior improved 35um despite no intervention Fundus Photo Interpretation: 03/25/2022 OD: Hollenhorst plaque on ON head inferior branch OS: wnl A/P: 1. Mild-moderate Nonproliferative Diabetic Retinopathy OU - CIDME OD discussed options -- anti-VEGF injections vs EpM laser vs observation - pt wishes to continue to hold intervention for now as is asymptomatic - h/o improved OU w/o intervention - monitor - recommend HgbA1C <7, BP and lipid control. 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 Hyperopic -mild choroidal folds 4. Cataracts OU -not visually significant 5. h/o OHT -no 'g' changes -monitor -recheck w/ Dr. Agee at upcoming appointment F/u 3 months - dilate x 2 and OCT OU Connor Knowles DO 622 CC: Verenice Agee, LUIS EDUARDO PCP: Amanda Hidalgo DO documented in this encounter Nursing Notes * Melany Cordeor RN - 10/05/2022 1:40 PM EDT Jesús Vences is a 82 year old year old male who presents for NPDR OU. Last Office Visit: 07/02/2022 (in office), Visit date not found (telemedicine) Patient currently states no change in vision. Are you diabetic? Yes. Do you check your blood sugars daily? YES. Fasting BS this mornin mg/dl. Last Hemoglobin A1C: Lab Results Component Value Date/Time HGBA1C 9.2 (H) 08/12/2022 10:43 AM HGBA1C 7.8 (H) 02/11/2022 10:18 AM HGBA1C 8.0 (H) 08/15/2021 10:09 AM HGBA1C 7.5 (H) 02/26/2020 11:43 AM HGBA1C 7.3 (H) 09/08/2019 09:30 AM HGBA1C 7.4 (H) 02/27/2019 09:[address]? yes OCT image(s) of both eyes acquired and filed/scanned into chart. documented in this encounter Plan of Treatment Upcoming Encounters Date Type Specialty Care Team Description 11/16/2022 Office Visit Family Medicine Yoon Perez, PA-C [address] [place] [address] [place] [phone] 01/05/2023 Office Visit Ophthalmology Connor Knowles DO [address] [place] [address] 02/24/2023 Office Visit Family Medicine Amanda Hidalgo, DO [address] [place] [address] [place] [phone] 05/19/2023 Office Visit Dermatology Lizeth Reardon PA-C [address] [place] [address] [place] [phone] Health Maintenance Due Date Last Done Comments FOBT ANNUALLY,AGES 18-90 01/15/2023 022, 09/16/2020, 03/09/2019, Additional history exists HbA1c 02/11/2023 08/12/2022, 01/24, 08/15/2021, Additional history exists Yearly B-12 02/11/2023 02/11/2022, 07/26, 02/26/2020, Additional history [...] Completed 02/09/2022, 08/2021, 02/24/2021, Additional history exists Influenza Vaccine (FLU shot) Completed , 01/10/2021, 01/26/2020, Additional history exists GARDASIL-HPV IMMUNIZATION SERIES Aged [...] Diagnoses Diagnosis 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
--- OUTSIDE RECORDS SUMMARY | 2023-03-27 22:07 | External Medical Summary | Summary of Care ---
Author Name Unknown Organization [facility] Address [address] [facility] [place] [address] Phone [phone] Care Team Providers Care Systems Mgr Name Role Phone Amanda Hidalgo DO Primary Care Provider [phone] Reason for Visit * Reason Comments Dosage Adjustment In Person (Anticoag Cl inic) Diabetes Education * Evaluate & Treat - Unlimited Visits (Within 30 days (routine)) - Authorized Specialty Diagnoses / Procedures Referred By Contac t Referred To Contact Pharmacist / Pharmacy Diagnoses Type 2 diabetes mellitus with hemoglobin A1c goal of less than 8.0% ([facility]) Yoon Perez PA-C [address] [place] [address] [place] [id number] Referral ID Status Reason Start Date Expiration Date Visits Requested Visits Authorized [id number] Authorized Specialty Services Required 11/16/2022 99 99 Encounter Details Date Type Department Care Team Description 11/25/2022 Office Visit Pharmacy, [address] [place] [phone] [place] [id number] Type 2 diabetes mellitus with hemoglobin A1c goal of less than 8.0% ([facility])*; Type 2 diabetes mellitus with diabetic cataract, without long-term current use of insulin ([facility]); Both eyes affected by mild nonproliferative diabetic retinopathy with macular edema, associated with type 2 diabetes mellitus ([facility]); DM type 2 causing neurological disease ([facility]) Allergies Active Allergy Reactions Severity Noted Date Comments Amoxicillin Rash High 11/18/2009 rash documented as of this encounter (statuses as of 11/26/2022) Medications Medication Sig Dispensed Refills Start Date [...] as of this encounter (statuses as of 11/26/2022) Active Problems Problem Noted Date Type 2 diabetes mellitus with hemoglobin A1c goal of less than 8.0% 08/14/2022 Nonrheumatic aortic valve stenosis 08/14 Overview: Very mild 02/2020 Hydrocele in adult 08/30/2020 Overview: Dr. García - [facility] [place] Type 2 diabetes mellitus with diabetic c ataract 08/23/2018 Anemia 02/23/2018 HTN, goal below 140/90 02/23/2018 H/O nonmelanoma skin cancer 10/28/2016 Overview: BCC (L sikh, L central frontal scalp 05/16) AK (actinic keratosis) 03/02/2016 DM type 2 causing neurological disease 0 09/20/2014 Mild nonproliferative diabetic retinopat hy 06/19/2014 Hyperlipidemia with target LDL less than 70 11/18/2009 documented as of this encounter (statuses as of 11/26/2022) Resolved Problems Problem Noted Date Resolved Date [...] cell carcinoma), face 11/29/2013 02/05/2017 Overview: L sikh-2013 DM type 2 causing eye disease 06/02/2013 [...] as of this encounter (statuses as of 11/26/2022) Immunizations Name Administration Dates Next Due COVID-19 [...] this encounter Progress Notes * Brook Beltrán, [facility] - 11/25/2022 1:41 PM EDT Medication Therapy [facility] - Diabetes Management Progress Note Jesús Vences, identified by name and date of , is a 82 year old male being seen for diabetes management/education. Patient presents for initial diabetic visit. Past Medical History: Diagnosis Date Balance disorder 09/20/2014 BCC (basal cell carcinoma), face 11/29/2013 L sikh-2013 Degenerative disc disease, cervical 07/29/2016 DM type 2 causing eye disease (HCC) 06/02/2013 DM type 2 causing neurological disease (HCC) 09/20/2014 DM type 2, goal A1c below 7 03/25/2015 DM type 2, goal A1C below 8.0 08/23/2012 Dyslipidemia, goal LDL below 100 11/18/2009 Lumbar degenerative disc disease 05/25/2016 Mild nonproliferative diabetic retinopathy(362.04) 06/19/2014 NEUROPATHY IN DIABETES 11/18/2009 NO KNOWN PROBLEMS Peripheral sensory neuropathy 03/25/2015 Primary osteoarthritis of both hips 05/25/2016 Type 2 diabetes mellitus with hemoglobin A1c goal of less than 7.5% ([facility]) 07/16/2016 Diagnosis: Type 2 Age of diabetes diagnosis: [id number] Family history of diabetes: Yes, maternal side Microvascular complications: retinopathy Macrovascular complications: hypertension dyslipidemia History of Treatment Barriers: Lifestyle: None Therapy considerations: No prescription drug insurance Medication: n/a DIABETES: Current diabetic medications: Glipizide ER 15 mg daily in the AM (5mg +10mg tablets) Metformin HCl 1000mg BID eGFR >90 as of 08/12/22 Target A1c < 8% Medication Injection Site: N/A Lifestyle: Diet: Deferred Glucose Review/SMBG: BG log not available Hypoglycemia: Does your blood sugar go below 70 mg/dL? Patient denies Hyperglycemia symptoms present: none Recent Labs Units [...] REVIEW: Health Maintenance Due Topic Date Due FOBT ANNUALLY,AGES 18-90 01/15/2023 ASSESSMENT & PLAN: ICD-10-CM 1. Type 2 diabetes mellitus with hemoglobin A1c goal of less than 8.0% ([facility]) E11.9 2. Type 2 diabetes mellitus with diabetic cataract, without long-term current use of insulin ([facility]) E11.36 3. Both eyes affected by mild nonproliferative diabetic retinopathy with macular edema, associated with type 2 diabetes mellitus ([facility]) E11.3213 4. DM type 2 causing neurological disease ([facility]) E11.49 Considerations: NO RX COVERAGE PACE? Retinopathy, following with Dr Knowles Lengthy discussion on diabetes pathophysiology, role of diet and macronutrients on blood glucose control and benefits of exercise. BG Readings - Blood sugars not available. Patient reports he forgot meter. Tests every few days butonly in the AM. States he has trouble getting blood out of his finger. Interested in CGM therapy. Although not on insulin, patient would benefit greatly due to diabetic retinopathy complications. Medications - Reviewed current regimen, patient is adherent to regimen. Tolerating well. Reviewed Glipizide with patient. We discussed the hypoglycemia risk of this class of medications, patient denies any recent s/sx of this. Also discussed the risk of pancreatic burnout. Patient states he does not have any Rx coverage. Paying out of pocket for current medications, limiting the option for new/more expensive therapies. States he applied for PACE in the past, unaware ofPACENET. Provided with phone number and instructed to contact and apply. Diet, Exercise, Lifestyle - Deferred full comprehensive diet review/education until future visits due to time constraints. Patient states he follows a strict DM diet. Avoids CHOs. F/u scheduled x6 weeks. Tomorrow Health order placed for Dexcom G7 therapy. Patient plans to apply to PACE prior to next visit. Instructed to contact clinic with any questions, concerns, or updates prior to that time. Will plan to further assess BG readings as he will bring meter to visit, hopeful PACE will allow for optimization of DM therapy. Patient is agreeable to SMBG 1-2 time(s) daily. Patient aware to contact clinic if any hypoglycemia before next visit. MEDICATION CHANGES: no change Diabetic Medications: Glipizide ER 15 mg daily in the AM (5mg +10mg tablets) Metformin HCl 1000mg BID eGFR >90 as of 08/12/22 Target A1c < 8% HEALTH MAINTENANCE INTERVENTIONS: Deferred due to time constraints FOLLOW UP: Return to clinic in 6 weeks 01/06/2023 Brook Beltrán RP Clinical Pharmacist - [facility] 11/25/2022, 1:41 PM documented in this encounter Plan of Treatment Upcoming Encounters Date Type Specialty Care Team Description 01/05/2023 Office Visit Ophthalmology Connor Knowles, DO [address] [place] [address] 01/06/2023 Office Visit Pharmacy [address] [place] [address] 02/24/2023 Office Visit Family Medicine Amanda Hidalgo, [address] [place] [address] 05/19/2023 Office Visit Dermatology Lizeth Reardon PA-C [address] [place] [address] [place] [phone] Scheduled Referrals Name Type Priority Associated Diagnoses [...] goal of less than 8.0% (HCC)- Primary Type 2 diabetes mellitus with diabetic cataract, without long-term current use of insulin (HCC) Both eyes affected by mild nonproliferative diabetic retinopathy with macular edema, associated with type 2 diabetes mellitus (HCC) DM type 2 causing neurological disease (HCC) Type II or unspecified type diabetes mellitus with neurological manifestations, not stated as uncontrolled documented in this encounter Care Teams Systems Mgr Relationship Specialty Start Date End Date Amanda Hidalgo[address] [place] [address] PCP - General Internal Medicine 08/18/18 documented as of this encounter
--- OUTSIDE RECORDS SUMMARY | 2023-03-27 22:07 | External Medical Summary | Summary of Care ---
Author Name Unknown Organization [facility] Address [address] [facility] [place] [address] Phone [phone] Care Team Providers Care Electronic Heat Seal Operator Name Role Phone Amanda Hidalgo DO Primary Care Provider [phone] Reason for Visit * Reason Comments Follow Up F/U DIL OU X 2, OCT OU: denies changes Encounter Details Date Type Department Care Team Description 01/05/2023 Office Visit Ophthalmology, 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 Change every 10 days. 3 Each 3 12/09/2022 Active documented as of this encounter (statuses as of 01/05/2023) Active Problems Problem Noted Date Type 2 diabetes mellitus with hemoglobin A1c goal of less than 8.0% 08/14/2022 Nonrheumatic aortic valve stenosis 08/14 Overview: Very mild 02/2020 Hydrocele in adult 08/30/2020 [place]: [place]ía [place] [facility] [place] Type 2 diabetes mellitus [...] as of this encounter (statuses as of 01/05/2023) Resolved Problems Problem Noted Date Resolved Date [...] as of this encounter (statuses as of 01/05/2023) Immunizations Name Administration Dates Next Due COVID-19 [...] of this encounter Progress Notes * Connor Knowles DO - 01/05/2023 1:30 PM EDT [facility] [place] Nursing notes reviewed. Eye vitals reviewed. Mood and Affect: normal HPI: Jesús Vences is a 82 year old male who presents for evaluation of DR No other eye complaints. Denies significant pain. Base Eye Exam Visual Acuity (Snellen - Linear) Right Left Dist cc 20/50 -1 20/30 -2 Dist ph cc NI Correction: Glasses Tonometry (Tonopen, 1:44 PM) Right Left Pressure 14 14 Pupils Pupils APD Right PERRL None Left PERRL None Visual [place] (Counting fingers) Right Left Full Full Extraocular Movement Right Left Full, Ortho Full, Ortho Neuro/Psych Oriented x3: Yes Mood/Affect: Normal Dilation Both eyes: 0.5% Proparacaine @ 1:43 PM Dilation #2 Both eyes: 1.0% Mydriacyl, 2.5% Phenylephrine @ 1:43 PM Dilation #3 Both eyes: 1.0% Mydriacyl, 2.5% Phenylephrine @ 1:45 PM Dilation Comments Patient cautioned that effects of dilation may last 2-7 hours dependant upon individual reaction. It was discussed that driving while dilated is not recommended. Strabismus Exam Correction: sc Observations: Ortho Distance Near Near +3DS N Bifocals cover/uncover, and alternate cover EXTERNAL: The ocular adnexae are unremarkable. 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 WASH ATTENDANT with microaneurysms, no CSME vessels: wnl periphery: trace choroidal folds, CAR WASH ATTENDANT, no RT/RD OCT Interpretation: OD: mild CIDME, no PVD - STABLE, prior no change, prior improved 31um prior worse 39um, prior improved 35um prior improved 18um, prior no sig change, prior no change, prior worse 63um, prior STABLE, prior improved 27um, prior mildly worse, prior no change, prior improved despite no intervention; nosig change OS: trace central dme, no PVD - improved 23um prior worse 21um prior STABLE, prior STABLE, prior [...] h/o improved OU w/o intervention - monitor -VA down an OCT OD w/ CIDME--pt still wants to hold on intervention at this time -monitor - recommend HgbA1C <7, BP and lipid control. 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 Hyperopic -mild choroidal folds 4. Cataracts OU -not visually significant 5. h/o OHT -no 'g' changes -monitor -recheck w/ Dr. Agee at upcoming appointment F/u 3 months - dilate x 2 and OCT OU Connor Knowles DO 0623 CC: Verenice Agee, LUIS EDUARDO PCP: Amanda Hidalgo DO documented in this encounter Nursing Notes * Liat Ospina RN - 01/05/2023 1:38 PM EDT Jesús Vences is a 82 year old year old male who presents for Mild NPDR OU. Last Office Visit: 10/05/2022 (in office), Visit date not found (telemedicine) Patient currently states no change in vision. Are you diabetic? Yes. Do you check your blood sugars daily? YES. Did not measure this morning. Last Hemoglobin A1C: Lab Results Component Value Date/Time HGBA1C 8.4 (H) 11/12/2022 09:46 AM HGBA1C 9.2 (H) 08/12/2022 10:43 AM HGBA1C 7.8 (H) 02/11/2022 10:18 AM HGBA1C 7.5 (H) 02/26/2020 11:43 AM HGBA1C 7.3 (H) 09/08/2019 09:30 AM HGBA1C 7.4 (H) 02/27/2019 09:[address]? yes OCT and Fundus image(s) of both eyes acquired and filed/scanned into chart. documented in this encounter Plan of Treatment Upcoming Encounters Date Type Specialty Care Team Description 01/06/2023 Office Visit Pharmacy [place], [facility] [address] [place] [address] 02/24/2023 Office Visit Family Medicine Amanda Hidalgo, [address] [place] [address] 04/06/2023 Office Visit Ophthalmology Connor Knowles, DO [address] [place] [address] 05/19/2023 Office Visit Dermatology Lizeth Reardon, [place] [address] [place] [address] [place] [address] Health Maintenance Due Date Last Done Comments [...] both eyes and macular edema, unspecified whether medical terminologist insulin use (HCC)- Primary documented in this encounter Care Teams Electronic Heat Seal Operator Relationship Specialty Start Date End Date Amanda Hidalgo, [address] [place] [address] PCP - General Internal Medicine 08/18/18 documented as of this encounter
--- OUTSIDE RECORDS SUMMARY | 2023-03-27 22:07 | External Medical Summary ---
Author Name Unknown Address Unknown Organization K01:[facility] [place] [address] [place] [address] Laboratory Report Ordering Provider Test Date Status SKIPRODRIGUEZ 02/23/2023 10:34:05 Final Observation Date Value Abnormality Reference (Units ) Status Vitamin B12 02/23/2023 10:34:05 [phone] (pg/mL) Final Performing Location [facility] - [address] [place] [place] [address]
[2023-03-27 23:14] LABS: Adenovirus PCR Not Detected (NotDetected); Bordetella parapertussis PCR Not Detected (NotDetected); Bordetella pertussis PCR Not Detected (NotDetected); Chlamydia pneumoniae PCR Not Detected (NotDetected); Coronavirus 229E PCR Not Detected (NotDetected); Coronavirus CoV-2 (COVID19)PCR Not Detected (NotDetected); Coronavirus HKU1 PCR Not Detected (NotDetected); Coronavirus NL63 PCR Not Detected (NotDetected); Coronavirus OC43PCR Not Detected (NotDetected); Human Metapneumovirus PCR Not Detected (NotDetected); Influenza A PCR Not Detected (NotDetected); Influenza B PCR Not Detected (NotDetected); Mycoplasma pneumoniae PCR Not Detected (NotDetected); Parainfluenza Virus 1 PCR Not Detected (NotDetected); Parainfluenza Virus 2 PCR Not Detected (NotDetected); Parainfluenza Virus 3 PCR Not Detected (NotDetected); Parainfluenza Virus 4 PCR Not Detected (NotDetected); Respiratory Syncytial VirusPCR Not Detected (NotDetected); Rhinovirus/Enterovirus PCR Not Detected (NotDetected)
[2023-03-27] MEDS ORDERED: SODIUM CHLORIDE 0.9% 1,000 ML IV ONE (23:24)
--- NOTE | 2023-03-27 23:42 | Emergency Department Note ---
Impression & Plan Non-ST elevation MO (NSTEMI), Anaplasmosis, Acute Lyme disease, Thrombocytopenia, Transaminitis, Acute sore throat ED Provider Note HISTORY OF PRESENT ILLNESS: Patient is an 82-year-old male presenting with generalized weakness and a sore throat. Patient reports he has been feeling generally unwell for the last 8 days. Reports symptoms started just after Thanksgiving and he has been having progressive worsening weakness and sore throat. He denies any fevers at home. Reports that he has not had much of an appetite and has had decreased oral intake over the last few days. Denies any abdominal pain. Reports an episode of diarrhea earlier today. Denies any nausea or vomiting. Denies any dysuria or hematuria. Denies any chest pain or shortness of breath. Denies any recent travel. Denies any recent sick contact exposures. Denies any rashes ROS: as above PHYSICAL EXAM: Constitutional: Patient appears in no acute distress. HENT: Head: Normocephalic and atraumatic. Eyes: EOMI, PERRL Mouth/Throat: Mucous membranes moist. Neck: Trachea midline. Neck supple. Cardiovascular: Tachycardic with regular rhythm. No murmurs, rubs or gallops. Intact distal pulses. Pulmonary/Chest: No respiratory distress. Breath sounds clear and equal bilaterally. No wheezes or rales. Abdominal: Abdomen soft, no tenderness, rebound or guarding. Musculoskeletal: No edema, tenderness or deformity noted. Skin: Warm and dry. No rash, erythema, pallor or cyanosis Psychiatric: Appropriate mood and affect for situation. Neurological: Alert and keenly responsive. CN II-XII grossly intact, moving all extremities equally and fully. MDM: - Vitals signs showed tachycardia and elevated temperature - History obtained via patient. Patient presents with a sore throat and generalized weakness. Patient reports he is feeling generally unwell for the last 8 days. Reports progressively worsening weakness and sore throat over the last 8 days. Denies any fevers at home. He has had decreased oral intake and a poor appetite in the last few days. Denies any abdominal pain. Denies any chest pain or shortness of breath. Denies any recent travel or recent sick contact exposures. Denies any rashes - Chronic conditions affecting care: HTN; HLD; DM-2 - Differential diagnoses include, but are not limited to: Acute viral syndrome; viral pharyngitis; strep throat; ACS; pneumonia; UTI - Order placed for continuous cardiac monitoring. At this time, monitor showed rate of 105 bpm with normal sinus rhythm, per my interpretation. - External medical records reviewed. - EKG reviewed by myself showed normal sinus rhythm. Rate tachycardic at 103 bpm. QTc 437. No acute ischemic changes - Laboratory workup interpreted by myself showed slight leukocytosis (WBC 10.96); thrombocytopenia (plt 61); hyponatremia Na 128); elevated troponin (22.9); slight transaminitis (AST 92; ALT 99) - Viral biofire negative - CXR negative for pneumonia, per my interpretation - Anaplasmosis positive. IgM lyme positive. Patient given 100 mg PO doxycycline in ER. Will need 21 day treatment. - Repeat troponin rising slightly. - Thrombocytopenia and transaminitis likely secondary to patient's anaplasmosis infection. - Given 1L NS and 650 mg PO tylenol in ER. - Discussion was had with child caregiver about patient's case and need for admission - Hospitalist consulted for admission - Patient admitted to [facility] service for further evaluation and management. ASSESSMENT AND PLAN: Diagnosis: NSTEMI; anaplasmosis infection; acute lyme disease; transaminitis; thrombocytopenia; acute sore throat Plan: Admit Past Med/Surg History Medical History Anemia 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 Cardiac murmur "MILD" NO CARDS Diabetes mellitus, type 2 Hx of basal cell carcinoma Hydrocele Hyperlipidemia Hypertension Surgical History History of tooth extraction Hx of vasectomy Family History Mother Family history of diabetes mellitus Grandfather (Maternal) Family history of diabetes mellitus Other No family history of adverse response to anesthesia Social History Smoking Status: Never smoker Second Hand Exposure: Yes ( A CHILD); Hx Alcohol Use: No Preferred Language: [place]oth[place] [employer] Member Required: No Beliefs That Will Affect Care: None Current Living Situation: Spouse Feels Safe at Home: Yes Assistive Devices: Denture - Upper, Denture - Lower and Glasses Allergies Allergies Allergy/AdvReac Type Severity Reaction Status Date / Time amoxicillin Allergy Intermediate Rash Verified 03/27/23 23:58 Home Meds Home Medications Medication Instructions Recorded Confirmed atorvastatin 20 mg tablet 20 mg PO HS 03/07/20 03/28/23 glipizide 10 mg tablet 10 mg PO DAILY 03/07/20 03/28/23 lisinopril 10 mg tablet 10 mg PO DAILY 03/07/20 03/28/23 metformin 1,000 mg tablet 1,000 mg PO BID 03/07/20 03/28/23 multivitamin 1 tab PO DAILY 03/07/20 03/28/23 cholecalciferol (vitamin D3) 25 25 mcg PO DAILY 07/09/21 03/28/23 mcg (1,000 unit) tablet (Vitamin D3) ferrous sulfate 325 mg (65 mg 325 mg PO DAILY 07/09/21 03/28/23 iron) tablet (iron) glipizide 5 mg tablet, extended 5 mg PO DAILY 03/27/23 03/28/23 release 24 hr vitamin B complex 1 cap PO DAILY 03/27/23 03/28/23 Results & Data (ED) Vital Signs Vital Signs - 24 hr 03/27/23 22:03 03/27/23 23:23 03/27/23 23:28 Temperature 37.7 C H Temperature Source Temporal Artery Scan Pulse Rate 102 H 113 H 111 H Respiratory Rate 18 21 Respiratory Depth Normal Blood Pressure 117/55 L 134/46 L Blood Pressure Mean 75 75 Pulse Oximetry 99 Oxygen Delivery Method Room Air Sepsis Recent Fever Within 48 Hours Yes Sepsis New/Unexplained Change in Mental Status No Sepsis Action Taken by Nursing No Action Required 03/27/23 23:30 03/28/23 00:00 03/28/23 00:30 Temperature Temperature Source Pulse Rate 108 H 104 H 105 H Respiratory Rate 16 15 22 Respiratory Depth Blood Pressure 132/60 132/59 L 126/59 L Blood Pressure Mean 84 83 81 Pulse Oximetry 96 96 95 Oxygen Delivery Method Sepsis Recent Fever Within 48 Hours Sepsis New/Unexplained Change in Mental Status Sepsis Action Taken by Nursing 03/28/23 01:00 03/28/23 01:30 03/28/23 02:00 Temperature Temperature Source Pulse Rate 102 H 106 H 104 H Respiratory Rate 24 24 26 H Respiratory Depth Blood Pressure 128/59 L 126/58 L 124/58 L Blood Pressure Mean 82 80 80 Pulse Oximetry 96 95 95 Oxygen Delivery Method Sepsis Recent Fever Within 48 Hours Sepsis New/Unexplained Change in Mental Status Sepsis Action Taken by Nursing 03/28/23 02:30 Temperature Temperature Source Pulse Rate 105 H Respiratory Rate 23 Respiratory Depth Blood Pressure 119/63 Blood Pressure Mean 81 Pulse Oximetry 94 Oxygen Delivery Method Sepsis Recent Fever Within 48 Hours Sepsis New/Unexplained Change in Mental Status Sepsis Action Taken by Nursing Laboratory Data 03/27/23 23:50 03/27/23 23:50 Lab Results 03/27/23 03/27/23 03/28/23 Range/Units 22:10 23:50 00:04 WBC 10.96 H (4.8-10.8) K/ul RBC 3.29 L (4.70-6.10) M/uL Hgb 10.4 L (14.0-18.0) g/dl Hct 29.5 L (42.0-52.0) % MCV 89.7 (80.0-100.0) fL MCH 31.6 (25.0-34.0) pg MCHC 35.3 (32.0-36.0) g/dL RDW Std Deviation 42.5 (36.4-46.3) fL RDW Coeff of Yoli 12.8 (11.5-14.5) % Plt Count 61 L (130-400) K/uL MPV 11.7 (9.4-12.4) fL Immature Gran % (Auto) 0.7 % Neut % (Auto) 82.0 % Lymph % (Auto) 11.2 % Foster % (Auto) 5.8 % Eos % (Auto) 0.0 % Baso % (Auto) 0.3 % Neut # (Auto) 8.98 H (1.40-6.50) K/uL Lymph # (Auto) 1.23 (1.20-3.40) K/uL Foster # (Auto) 0.64 H (0.11-0.59) K/uL Eos # (Auto) 0.00 (0.00-0.50) K/uL Baso # (Auto) 0.03 (0.00-0.20) K/uL Immature Gran # (Auto) 0.08 (0.01-0.20) K/uL Sodium 128 L (136-145) mmol/L Potassium 4.2 (3.5-5.1) mmol/L Chloride 97 L (98-107) mmol/L Carbon Dioxide 22 (21-32) mmol/L Anion Gap 9 (3-11) BUN 25 H (6-23) mg/dl Creatinine 0.90 (0.6-1.4) mg/dl Est Cr Clr Drug Dosing Not Reportable Est GFR ( Amer) 92.5 ml/min Est GFR (Non-Af Amer) 79.8 ml/min BUN/Creatinine Ratio 27.8 H (10-20) Glucose 199 H (70-99(Fasting)) mg/dl POC Glucose 214 H (70-99) mg/dl Calcium 8.3 L (8.6-10.3) mg/dl Magnesium 1.7 (1.7-2.4) mg/dl Total Bilirubin 1.3 H (0.2-1.0) mg/dl AST 92 H (13-39) U/L ALT 99 H (7-52) U/L Alkaline Phosphatase 143 H (34-104) U/L Troponin I High Sens 22.9 H (0-20) pg/ml Total Protein 5.9 L (6.0-8.3) gm/dl Albumin 3.4 (3.4-5.0) gm/dl Globulin 2.5 (2.5-4.0) gm/dl Albumin/Globulin Ratio 1.4 (0.9-2) Adenovirus (PCR) Not Detected (NotDetected) Anaplasma Smear See Comment A B. pertussis DNA (PCR) Not Detected (NotDetected) B.parapertussis DNA PCR Not Detected (NotDetected) Lyme Disease IgG Ab Negative (Negative) Lyme Disease IgM Ab Equivocal A (Negative) C. pneumoniae DNA (PCR) Not Detected (NotDetected) Coronavirus OC43 (PCR) Not Detected (NotDetected) Coronavirus HKU1 (PCR) Not Detected (NotDetected) Coronavirus 229E (PCR) Not Detected (NotDetected) SARS-CoV-2 (PCR) Not Detected (NotDetected) Coronavirus NL63 (PCR) Not Detected (NotDetected) Human Metapneumovir PCR Not Detected (NotDetected) Influenza Type A (PCR) Not Detected (NotDetected) Influenza Type B (PCR) Not Detected (NotDetected) M. pneumoniae (PCR) Not Detected (NotDetected) Parainfluenza 1 (PCR) Not Detected (NotDetected) Parainfluenza 2 (PCR) Not Detected (NotDetected) Parainfluenza 3 (PCR) Not Detected (NotDetected) Parainfluenza 4 (PCR) Not Detected (NotDetected) RSV (PCR) Not Detected (NotDetected) Entero/Rhino (PCR) Not Detected (NotDetected) Group A Strep (PCR) NOT DETECTED (NotDetected) 03/28/23 03/28/23 Range/Units 01:36 02:40 WBC (4.8-10.8) K/ul RBC (4.70-6.10) M/uL Hgb (14.0-18.0) g/dl Hct (42.0-52.0) % MCV (80.0-100.0) fL MCH (25.0-34.0) pg MCHC (32.0-36.0) g/dL RDW Std Deviation (36.4-46.3) fL RDW Coeff of Yoli (11.5-14.5) % Plt Count (130-400) K/uL MPV (9.4-12.4) fL Immature Gran % (Auto) % Neut % (Auto) % Lymph % (Auto) % Foster % (Auto) % Eos % (Auto) % Baso % (Auto) % Neut # (Auto) (1.40-6.50) K/uL Lymph # (Auto) (1.20-3.40) K/uL Foster # (Auto) (0.11-0.59) K/uL Eos # (Auto) (0.00-0.50) K/uL Baso # (Auto) (0.00-0.20) K/uL Immature Gran # (Auto) (0.01-0.20) K/uL Sodium (136-145) mmol/L Potassium (3.5-5.1) mmol/L Chloride (98-107) mmol/L Carbon Dioxide (21-32) mmol/L Anion Gap (3-11) BUN (6-23) mg/dl Creatinine (0.6-1.4) mg/dl Est Cr Clr Drug Dosing Est GFR ( Amer) ml/min Est GFR (Non-Af Amer) ml/min BUN/Creatinine Ratio (10-20) Glucose (70-99(Fasting)) mg/dl POC Glucose (70-99) mg/dl Calcium (8.6-10.3) mg/dl Magnesium (1.7-2.4) mg/dl Total Bilirubin (0.2-1.0) mg/dl AST (13-39) U/L ALT (7-52) U/L Alkaline Phosphatase (34-104) U/L Troponin I High Sens 24.2 H 23.1 H (0-20) pg/ml Total Protein (6.0-8.3) gm/dl Albumin (3.4-5.0) gm/dl Globulin (2.5-4.0) gm/dl Albumin/Globulin Ratio (0.9-2) Adenovirus (PCR) (NotDetected) Anaplasma Smear B. pertussis DNA (PCR) (NotDetected) B.parapertussis DNA PCR (NotDetected) Lyme Disease IgG Ab (Negative) Lyme Disease IgM Ab (Negative) C. pneumoniae DNA (PCR) (NotDetected) Coronavirus OC43 (PCR) (NotDetected) Coronavirus HKU1 (PCR) (NotDetected) Coronavirus 229E (PCR) (NotDetected) SARS-CoV-2 (PCR) (NotDetected) Coronavirus NL63 (PCR) (NotDetected) Human Metapneumovir PCR (NotDetected) Influenza Type A (PCR) (NotDetected) Influenza Type B (PCR) (NotDetected) M. pneumoniae (PCR) (NotDetected) Parainfluenza 1 (PCR) (NotDetected) Parainfluenza 2 (PCR) (NotDetected) Parainfluenza 3 (PCR) (NotDetected) Parainfluenza 4 (PCR) (NotDetected) RSV (PCR) (NotDetected) Entero/Rhino (PCR) (NotDetected) Group A Strep (PCR) (NotDetected) Administered Medications Discontinued Medications Sodium Chloride (Nss) 1,000 mls @ 999 mls/hr IV .[id number] ONE Stop: 03/28/23 00:24 Last Infusion: 03/28/23 02:20 Dose: Infused Documented By: Admin: 03/28/23 00:37 Dose: 999 mls/hr Documented By: ROMAN Imaging Data Radiologist's Impression: Chest X-Ray 03/27/23 23:22 SINGLE VIEW CHEST CLINICAL HISTORY: Generalized weakness. FINDINGS: An AP, portable, upright chest radiograph is compared to study dated 07/03/2021. The heart is mildly enlarged and noting atherosclerotic calcification of the thoracic aorta. The pulmonary vasculature is noncongested. Chronic interstitial thickening is similar to previous. There is bibasilar scarring/atelectasis. No airspace consolidation or large pleural effusion is identified. No pneumothorax is seen. The skeletal structures are osteopenic. The bony thorax is grossly intact. IMPRESSION: No acute cardiopulmonary abnormality. ACT 112: Negative or not required by law. Electronically signed by: Dayron Meraz M.D. 03/28/2023 12:09 AM Discharge Plan Visit Data Chief Complaint: Sore Throat Stated Complaint: SORE/RAW THROAT, POOR APPETITE, WEAKNESS ED Provider: Laura Nazario Discharge Problem: Non-ST elevation MO (NSTEMI), Anaplasmosis, Acute Lyme disease, Thrombocytopenia, Transaminitis, Acute sore throat Forms Stand Alone Forms: My [facility] 42cm Prescriptions Prescriptions: No Action metformin 1,000 mg tablet 1,000 mg PO BID glipizide 10 mg tablet 10 mg PO DAILY Patient Comments: AT NOON Rx Instructions: TOTAL DOSE 15 MG--TAKES WITH 5 MG TAB. lisinopril 10 mg tablet 10 mg PO DAILY atorvastatin 20 mg tablet 20 mg PO HS multivitamin Tablet 1 tab PO DAILY cholecalciferol (vitamin D3) [Vitamin D3] 25 mcg (1,000 unit) Tablet 25 mcg PO DAILY ferrous sulfate [iron] 325 mg (65 mg iron) Tablet 325 mg PO DAILY glipizide 5 mg tablet extended release 24hr 5 mg PO DAILY Rx Instructions: TOTAL DOSE 15 MG--TAKES WITH 10 MG TAB. vitamin B complex [B Complex] Capsule 1 cap PO DAILY Referrals Referrals: Amanda Hidalgo DO [Primary Care Provider] -
--- NOTE | 2023-03-28 00:10 | XRay Report ---
SINGLE VIEW CHEST CLINICAL HISTORY: Generalized weakness. FINDINGS: An AP, portable, upright chest radiograph is compared to study dated 07/03/2021. The heart i s mildly enlarged and noting atherosclerotic calcification of the thoracic aorta. The pulmonary vascu lature is noncongested. Chronic interstitial thickening is similar to previous. There is bibasilar sc arring/atelectasis. No airspace consolidation or large pleural effusion is identified. No pneumothora x is seen. The skeletal structures are osteopenic. The bony thorax is grossly intact. IMPRESSION: No acute cardiopulmonary abnormality. ACT 112: Negative or not required by law. Electronically signed by: Dayron Meraz M.D. 03/28/2023 12:09 AM
[2023-03-28 00:22] LABS: Alanine Aminotransferase 99 U/L (7-52); Albumin Globulin Ratio 1.4 (0.9-2); Albumin Level 3.4 gm/dl (3.4-5.0); Alkaline Phosphatase 143 U/L (34-104); Anion Gap 9 (3-11); Aspartate Aminotransferase 92 U/L (13-39); BUN Creatinine Ratio 27.8 (10-20); Bilirubin,Total 1.3 mg/dl (0.2-1.0); Blood Urea Nitrogen 25 mg/dl (6-23); Calcium 8.3 mg/dl (8.6-10.3); Carbon Dioxide 22 mmol/L (21-32); Chloride 97 mmol/L (98-107); Est GFR (African American) 92.5 ml/min; Est GFR (Non-African American) 79.8 ml/min; Globulin 2.5 gm/dl (2.5-4.0); Glucose 199 mg/dl (70-99(Fasting)); Magnesium 1.7 mg/dl (1.7-2.4); Potassium 4.2 mmol/L (3.5-5.1); Sodium 128 mmol/L (136-145); Total Protein 5.9 gm/dl (6.0-8.3)
[2023-03-28 00:54] LABS: Hematocrit (blood only) 29.5 % (42.0-52.0); Hemoglobin 10.4 g/dl (14.0-18.0); Mean Corpuscular Hemoglobin 31.6 pg (25.0-34.0); Mean Corpuscular Hgb Conc 35.3 g/dL (32.0-36.0); Mean Corpuscular Volume 89.7 fL (80.0-100.0); Mean Platelet Volume 11.7 fL (9.4-12.4); Platelet Count 61 K/uL (130-400); RDW Coefficient of Variation 12.8 % (11.5-14.5); RDW Standard Deviation 42.5 fL (36.4-46.3); Red Blood Count 3.29 M/uL (4.70-6.10); White Blood Count 10.96 K/ul (4.8-10.8)
[2023-03-28 00:57] LABS: Troponin I High Sensitivity 22.9 pg/ml (0-20)
[2023-03-28 01:12] LABS: Lyme Ab IgG w/WB Rflx Negative (Negative)
[2023-03-28 01:37] LABS: Lyme Ab IgM w/WB Rflx Equivocal (Negative)
[2023-03-28 01:48] LABS: Basophils # (auto) 0.03 K/uL (0.00-0.20); Basophils % (auto) 0.3 %; Immature Granulocytes # (auto) 0.08 K/uL (0.01-0.20); Immature Granulocytes % (auto) 0.7 %; Lymphocytes # (auto) 1.23 K/uL (1.20-3.40); Lymphocytes % (auto) 11.2 %; Monocytes # (auto) 0.64 K/uL (0.11-0.59); Monocytes % (auto) 5.8 %; Neutrophils # (auto) 8.98 K/uL (1.40-6.50)
[2023-03-28] MEDS ORDERED: DOXYCYCLINE HYCLATE 100 MG CAP PO STA (02:36)
[2023-03-28] MEDS ORDERED: DOXYCYCLINE HOME PACK 100 MG PO ONE (02:36)
[2023-03-28] MEDS ORDERED: ACETAMINOPHEN 325 MG TAB PO STA (02:37)
--- NOTE | 2023-03-28 04:20 | History & Physical Report ---
Date of Service March 28, 2023 Assessment & Plan (1) Sepsis: Plan: Secondary to anaplasmosis Acute on chronic anemia new onset thrombocytopenia Hemoglobin drop from baseline Secondary to tickborne infection UGIB contributory to anemia, heme positive melanotic stools documented at the ER. Transaminitis secondary to tickborne infection Hyponatremia secondary to decreased p.o. intake from sore throat symptoms moderate aortic stenosis hypertension, BP on the lower side hyperlipidemia, on statin Rx DM 2 on oral medications, suboptimal control as of recent hemoglobin A1c of 8 last month Medical telemetry CS, Doxycycline CT soft tissue neck Re: Sore throat symptoms causing dysphagia IV PPI for UGIB GI consult re: UGIB N.p.o. until patient seen by GI in anticipation of endoscopy Anemia work-up, transfuse PRBC if hemoglobin less than 7 and or for symptomatic anemia Careful correction of sodium, hyponatremia work-up Basal bolus insulin adjusted for n.p.o. status, ISS BG goal 1 10-1 40 DVT prophylaxis. SCDs Re: GI bleed Full code History of Present Illness Chief Complaint: Sore throat, generalized weakness Primary Care Provider: Amanda Hidalgo DO History obtained from patient and records. Medical history significant for moderate aortic stenosis, hypertension, hyperlipidemia, DM 2 on oral medications, history of varicocele, skin cancer as per records, chronic anemia (baseline hemoglobin 12-13). 1 week history generalized weakness and sore throat and dysphagia symptoms. Black stools noted yesterday without abdominal pain. Denies hematemesis. No headache, no chest pain, no SOB, no cough symptoms. Poor appetite. Generalized weakness. Tick bite about 2 weeks ago. 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 Allergies Allergy/AdvReac Type Severity Reaction Status Date / Time amoxicillin Allergy Intermediate Rash Verified 03/27/23 23:58 Home Medications Medication Instructions Recorded Confirmed Type atorvastatin 20 mg tablet 20 mg PO HS 03/07/20 03/28/23 History glipizide 10 mg tablet 10 mg PO DAILY 03/07/20 03/28/23 History lisinopril 10 mg tablet 10 mg PO DAILY 03/07/20 03/28/23 History metformin 1,000 mg tablet 1,000 mg PO BID 03/07/20 03/28/23 History multivitamin 1 tab PO DAILY 03/07/20 03/28/23 History cholecalciferol (vitamin D3) 25 25 mcg PO DAILY 07/09/21 03/28/23 History mcg (1,000 unit) tablet (Vitamin D3) ferrous sulfate 325 mg (65 mg 325 mg PO DAILY 07/09/21 03/28/23 History iron) tablet (iron) glipizide 5 mg tablet, extended 5 mg PO DAILY 03/27/23 03/28/23 History release 24 hr vitamin B complex 1 cap PO DAILY 03/27/23 03/28/23 History Past Med/Surg History Medical History Anemia 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 Cardiac murmur "MILD" NO CARDS Diabetes mellitus, type 2 Hx of basal cell carcinoma Hydrocele Hyperlipidemia Hypertension Surgical History History of tooth extraction Hx of vasectomy Family History Mother Family history of diabetes mellitus Grandfather (Maternal) Family history of diabetes mellitus Other No family history of adverse response to anesthesia Social History Smoking Status: Never smoker Second Hand Exposure: Yes ( A CHILD); Hx Alcohol Use: No Preferred Language: [place] [employer]er Required: No Beliefs That Will Affect Care: None Current Living Situation: Spouse Feels Safe at Home: Yes Assistive Devices: Denture - Upper, Denture - Lower and Glasses Review of Systems Review of Systems: As per HPI, all other systems reviewed and negative Physical Exam Physical Exam: GENERAL: Slightly uncomfortable, ill looking, wane, no respiratory distress SKIN: Pallor,, warm HEENT: Bespectacled, pale palpebral conjunctivae, no ptosis, dry buccal mucosa NECK : Supple, erythema overlying laryngeal prominence, no tenderness CHEST : CTA, no tenderness HEART : Tachycardic, no obvious murmurs ABDOMEN: Some distention, nontender RECTAL : Intact sphincter, melanotic stool (FOBT positive) EXTREMITIES : No LE swelling/tenderness, no other conspicuous deformities noted NEUROLOGIC : Coherent, no facial asymmetry, intention tremors, gait and stance not assessed Results & Data Results & Data Vital Signs (Past 12 Hours) Vital Signs Temp Pulse Resp BP Pulse Ox O2 Del Method 03/28/23 02:30 105 H 23 119/63 94 03/28/23 02:00 104 H 26 H 124/58 L 95 03/28/23 01:30 106 H 24 126/58 L 95 03/28/23 01:00 102 H 24 128/59 L 96 03/28/23 00:30 105 H 22 126/59 L 95 03/28/23 00:00 104 H 15 132/59 L 96 03/27/23 23:30 108 H 16 132/60 96 03/27/23 23:28 111 H 03/27/23 23:23 113 H 21 134/46 L 03/27/23 22:03 37.7 C H 102 H 18 117/55 L 99 Room Air Laboratory Results Laboratory Results WBC 10.96 K/ul (4.8-10.8) H 03/27/23 23:50 RBC 3.29 M/uL (4.70-6.10) L 03/27/23 23:50 Hgb 10.4 g/dl (14.0-18.0) L 03/27/23 23:50 Hct 29.5 % (42.0-52.0) L 03/27/23 23:50 MCV 89.7 fL (80.0-100.0) 03/27/23 23:50 MCH 31.6 pg (25.0-34.0) 03/27/23 23:50 MCHC 35.3 g/dL (32.0-36.0) 03/27/23 23:50 RDW Std Deviation 42.5 fL (36.4-46.3) 03/27/23 23:50 RDW Coeff of Yoli 12.8 % (11.5-14.5) 03/27/23 23:50 Plt Count 61 K/uL (130-400) L 03/27/23 23:50 MPV 11.7 fL (9.4-12.4) 03/27/23 23:50 Immature Gran % (Auto) 0.7 % 03/27/23 23:50 Neut % (Auto) 82.0 % 03/27/23 23:50 Lymph % (Auto) 11.2 % 03/27/23 23:50 Major % (Auto) 5.8 % 03/27/23 23:50 Eos % (Auto) 0.0 % 03/27/23 23:50 Baso % (Auto) 0.3 % 03/27/23 23:50 Neut # (Auto) 8.98 K/uL (1.40-6.50) H 03/27/23 23:50 Lymph # (Auto) 1.23 K/uL (1.20-3.40) 03/27/23 23:50 Major # (Auto) 0.64 K/uL (0.11-0.59) H 03/27/23 23:50 Eos # (Auto) 0.00 K/uL (0.00-0.50) 03/27/23 23:50 Baso # (Auto) 0.03 K/uL (0.00-0.20) 03/27/23 23:50 Immature Gran # (Auto) 0.08 K/uL (0.01-0.20) 03/27/23 23:50 Sodium 128 mmol/L (136-145) L 03/27/23 23:50 Potassium 4.2 mmol/L (3.5-5.1) 03/27/23 23:50 Chloride 97 mmol/L (98-107) L 03/27/23 23:50 Carbon Dioxide 22 mmol/L (21-32) 03/27/23 23:50 Anion Gap 9 (3-11) 03/27/23 23:50 BUN 25 mg/dl (6-23) H 03/27/23 23:50 Creatinine 0.90 mg/dl (0.6-1.4) 03/27/23 23:50 Est Cr Clr Drug Dosing Not Reportable 03/27/23 23:50 Est GFR ( Amer) 92.5 ml/min 03/27/23 23:50 Est GFR (Non-Af Amer) 79.8 ml/min 03/27/23 23:50 BUN/Creatinine Ratio 27.8 (10-20) H 03/27/23 23:50 Glucose 199 mg/dl (70-99(Fasting)) H 03/27/23 23:50 POC Glucose 214 mg/dl (70-99) H 03/28/23 00:04 Lactate 1.0 mmol/L (0.4-2.0) 03/28/23 03:59 Calcium 8.3 mg/dl (8.6-10.3) L 03/27/23 23:50 Magnesium 1.7 mg/dl (1.7-2.4) 03/27/23 23:50 Total Bilirubin 1.3 mg/dl (0.2-1.0) H 03/27/23 23:50 AST 92 U/L (13-39) H 03/27/23 23:50 ALT 99 U/L (7-52) H 03/27/23 23:50 Alkaline Phosphatase 143 U/L (34-104) H 03/27/23 23:50 Troponin I High Sens 23.1 pg/ml (0-20) H 03/28/23 02:40 Total Protein 5.9 gm/dl (6.0-8.3) L 03/27/23 23:50 Albumin 3.4 gm/dl (3.4-5.0) 03/27/23 23:50 Globulin 2.5 gm/dl (2.5-4.0) 03/27/23 23:50 Albumin/Globulin Ratio 1.4 (0.9-2) 03/27/23 23:50 Adenovirus (PCR) Not Detected (NotDetected) 03/27/23 22:10 Anaplasma Smear See Comment A 03/27/23 23:50 B. pertussis DNA (PCR) Not Detected (NotDetected) 03/27/23 22:10 B.parapertussis DNA PCR Not Detected (NotDetected) 03/27/23 22:10 Lyme Disease IgG Ab Negative (Negative) 03/27/23 23:50 Lyme Disease IgM Ab Equivocal (Negative) A 03/27/23 23:50 C. pneumoniae DNA (PCR) Not Detected (NotDetected) 03/27/23 22:10 Coronavirus OC43 (PCR) Not Detected (NotDetected) 03/27/23 22:10 Coronavirus HKU1 (PCR) Not Detected (NotDetected) 03/27/23 22:10 Coronavirus 229E (PCR) Not Detected (NotDetected) 03/27/23 22:10 SARS-CoV-2 (PCR) Not Detected (NotDetected) 03/27/23 22:10 Coronavirus NL63 (PCR) Not Detected (NotDetected) 03/27/23 22:10 Human Metapneumovir PCR Not Detected (NotDetected) 03/27/23 22:10 Influenza Type A (PCR) Not Detected (NotDetected) 03/27/23 22:10 Influenza Type B (PCR) Not Detected (NotDetected) 03/27/23 22:10 M. pneumoniae (PCR) Not Detected (NotDetected) 03/27/23 22:10 Parainfluenza 1 (PCR) Not Detected (NotDetected) 03/27/23 22:10 Parainfluenza 2 (PCR) Not Detected (NotDetected) 03/27/23 22:10 Parainfluenza 3 (PCR) Not Detected (NotDetected) 03/27/23 22:10 Parainfluenza 4 (PCR) Not Detected (NotDetected) 03/27/23 22:10 RSV (PCR) Not Detected (NotDetected) 03/27/23 22:10 Entero/Rhino (PCR) Not Detected (NotDetected) 03/27/23 22:10 Group A Strep (PCR) NOT DETECTED (NotDetected) 03/27/23 22:10 Impressions Chest X-Ray 03/27/23 23:22 SINGLE VIEW CHEST CLINICAL HISTORY: Generalized weakness. FINDINGS: An AP, portable, upright chest radiograph is compared to study dated 07/03/2021. The heart is mildly enlarged and noting atherosclerotic calcification of the thoracic aorta. The pulmonary vasculature is noncongested. Chronic interstitial thickening is similar to previous. There is bibasilar scarring/atelectasis. No airspace consolidation or large pleural effusion is identified. No pneumothorax is seen. The skeletal structures are osteopenic. The bony thorax is grossly intact. IMPRESSION: No acute cardiopulmonary abnormality. ACT 112: Negative or not required by law. Electronically signed by: Dayron Meraz M.D. 03/28/2023 12:09 AM Diagnostic Findings EKG as per my interpretation :Rate 105, sinus tachycardia, LAD, LAFB, septal infarct, no ischemia
[2023-03-28] MEDS ORDERED: PANTOprazole 80 MG in DEXTROSE 5% 100 ML IV STA (04:24)
[2023-03-28] MEDS ORDERED: MoRPHine SULFATE 2 MG/ML CARP IV PRN (04:26)
[2023-03-28] MEDS ORDERED: ACETAMINOPHEN 500 MG TAB PO PRN (04:26)
[2023-03-28] MEDS ORDERED: oxyCODONE HCL IR 5 MG TAB (IMMEDIATE RELEASE) PO PRN (04:26)
[2023-03-28] MEDS ORDERED: PROMETHAZINE HCL 6.25 MG in SODIUM CHLORIDE 0.9% 50 ML IV PRN (04:26)
[2023-03-28] MEDS ORDERED: DOXYCYCLINE HYCLATE 100 MG in DEXTROSE 5% MINI-B 100 ML IV ONE (04:45)
[2023-03-28] MEDS ORDERED: ACETAMINOPHEN 1,000 MG/100 ML VIAL IV STA (04:46)
[2023-03-28 04:55] LABS: Hematocrit (blood only) 27.8 % (42.0-52.0); Hemoglobin 9.8 g/dl (14.0-18.0); INR 1.1 (0.9-1.1); Mean Corpuscular Hemoglobin 31.7 pg (25.0-34.0); Mean Corpuscular Hgb Conc 35.3 g/dL (32.0-36.0); Mean Platelet Volume 11.7 fL (9.4-12.4); Platelet Count 66 K/uL (130-400); Prothrombin Time 11.8 Seconds (9.0-12.0); RDW Coefficient of Variation 12.9 % (11.5-14.5); RDW Standard Deviation 42.5 fL (36.4-46.3); Red Blood Count 3.09 M/uL (4.70-6.10); White Blood Count 9.57 K/ul (4.8-10.8)
[2023-03-28 04:56] LABS: Basophils # (auto) 0.03 K/uL (0.00-0.20); Basophils % (auto) 0.3 %; Immature Granulocytes # (auto) 0.06 K/uL (0.01-0.20); Immature Granulocytes % (auto) 0.6 %; Lymphocytes # (auto) 1.41 K/uL (1.20-3.40); Lymphocytes % (auto) 14.7 %; Monocytes # (auto) 0.55 K/uL (0.11-0.59); Monocytes % (auto) 5.7 %; Neutrophils # (auto) 7.52 K/uL (1.40-6.50); Neutrophils % (auto) 78.7 %; RBC Morphology Unremarkable; Reticulocyte % 0.3 % (0.5-2.0); Reticulocytes # 0.01 10^6/uL (0.02-0.10)
[2023-03-28 05:16] LABS: Folate (Folic Acid),Ser orPlas > 22.30 ng/ml (>5.38); Vitamin B12 > 1500 pg/ml (180-914)
[2023-03-28 05:52] LABS: Anion Gap 9 (3-11); Bilirubin,Total 1.2 mg/dl (0.2-1.0); Calcium 7.9 mg/dl (8.6-10.3); Carbon Dioxide 20 mmol/L (21-32); Chloride 100 mmol/L (98-107); Potassium 3.9 mmol/L (3.5-5.1); Sodium 129 mmol/L (136-145)
[2023-03-28 05:58] LABS: BUN Creatinine Ratio 31.2 (10-20); Blood Urea Nitrogen 24 mg/dl (6-23); Est GFR (African American) 98.6 ml/min; Est GFR (Non-African American) 85.1 ml/min; Glucose 162 mg/dl (70-99(Fasting))
[2023-03-28] MEDS ORDERED: NSS + 20MEQ KCL 20 MEQ/1,000 ML BAG IV ONE (05:58)
[2023-03-28] MEDS: MAGNESIUM SULFATE / D5W 1 GM/100 ML BAG IV SCH ×2 (06:02→07:44)
[2023-03-28 06:03] LABS: Alanine Aminotransferase 87 U/L (7-52); Albumin Globulin Ratio 1.3 (0.9-2); Alkaline Phosphatase 135 U/L (34-104); Aspartate Aminotransferase 82 U/L (13-39); Globulin 2.3 gm/dl (2.5-4.0); Iron < 10 mcg/dl (35-175); Total Protein 5.3 gm/dl (6.0-8.3); Transferrin 151 mg/dl (200-360)
[2023-03-28 06:30] LABS: Thyroid Stimulating Hormone 0.756 uIu/ml (0.300-4.500)
[2023-03-28 06:36] LABS: Ferritin 911.9 ng/ml (8-388)
[2023-03-28 06:40] LABS: Creatine Kinase 87 U/L (30-223)
[2023-03-28] MEDS ORDERED: CARBOHYDRATES FOR HYPOGLYCEMIA PO PRN (06:41)
[2023-03-28] MEDS ORDERED: GLUCAGON FOR INJ 1 MG VIAL SQ PRN (06:41)
[2023-03-28] MEDS ORDERED: GLUCOSE 40% GEL 15 GM TUBE PO PRN (06:41)
[2023-03-28] MEDS ORDERED: DEXTROSE 50% 50 ML SYRINGE IV PRN (06:41)
[2023-03-28] MEDS ORDERED: OPTIRAY 320 500ml IV ONE (06:41)
[2023-03-28] MEDS ORDERED: GLUCOSE 10 TAB/TUBE PO PRN (06:41)
--- NOTE | 2023-03-28 07:55 | CT Scan Report ---
CT OF THE NECK WITH IV CONTRAST CLINICAL HISTORY: Sore throat. COMPARISON STUDY: No previous studies for comparison. TECHNIQUE: Following IV administration of 88 mL of Optiray, helical axial images of the neck were ob tained. Sagittal and coronal reconstructions were viewed. Automated exposure control was utilized f or the study. A dose lowering technique was utilized adhering to the principles of ALARA. FINDINGS: Visualized portions of the intracranial contents are unremarkable. No fluid collection wit hin the neck is present. The left parotid and right submandibular glands are atrophic. The epiglottis is normal. There is no prevertebral edema. Major vasculature of the neck is patent. No cervical spin e fractures are identified. Visualized portions of the airway are patent. Interlobular septal thicken ing within the visualized lung apices is noted. The tonsils are not enlarged. No mucosal lesion is id entified by CT. There is no cervical lymphadenopathy. IMPRESSION: 1. No acute process within the neck by CT. No fluid collection to suggest abscess. 2. No cervical lymphadenopathy. 3. Mild interstitial pulmonary edema. ACT 112: Negative or not required by law. Electronically signed by: Rajeev Hall M.D. 03/28/2023 7:53 AM
[2023-03-28] MEDS: Patient's HEIGHT &/or WEIGHT Needed SCH ×5 (08:57→18:37)
[2023-03-28] MEDS: INSULIN ASPART PER UNIT CHARGE SC SCH ×4 (09:00→23:33)
[2023-03-28] MEDS: LANTUS PER UNIT CHARGE SQ SCH (09:00)
[2023-03-28 09:33] LABS: Appearance Urine Cloudy (Clear); Bilirubin Urine Negative (Negative); Blood Urine Negative (Negative); Color Urine Dark Yellow; Epithelial Cell Urine Auto >30 /lpf (0-5); Glucose Urine UA 2+ (Negative); Ketones Urine Negative (Negative); Leukocyte Esterase Urine Trace (Negative); Nitrite Urine Negative (Negative); Protein Urine 2+ (Negative); Specific Gravity Urine 1.021 (1.000-1.030); Urobilinogen Urine Negative (Negative); pH Urine 5.5 (4.5-7.5)
[2023-03-28 09:44] LABS: RBC Urine Automated 0-4 /hpf (0-4)
[2023-03-28 09:45] LABS: Bacteria Urine Automated 1+ (Negative)
[2023-03-28] MEDS: VITAMIN B COMPLEX TAB PO SCH (10:05)
[2023-03-28] MEDS: lisinopril 10 MG TAB PO SCH (10:05)
[2023-03-28] MEDS: MULTIVITAMIN TAB PO SCH (10:05)
[2023-03-28 11:04] LABS: Hematocrit (blood only) 27.1 % (42.0-52.0); Hemoglobin 9.5 g/dl (14.0-18.0)
--- NOTE | 2023-03-28 12:09 | Gastrointestinal Consultation ---
Date of Consultation March 28, 2023 Assessment & Plan (1) Melena: Will plan for EGD tomorrow for further evaluation. NPO at midnight. Ok for clears today. Trend H/H and transfuse for hgb <7. IV PPI 40 mg BID. Avoid NSAIDs. Please also obtain an abdominal ultrasound given thrombocytopenia to assess the liver though this is likely just related to his tickborne illness. Ensure platelet count >50 prior to EGD tomorrow. His anemia is likely worsened from tickborne illness as well but given he reports melena for 3 days will obtain endoscopy to rule out any GI bleeding. History of Present Illness Reason for Consultation: melena, concern for GI bleed Attending Physician: Dominique Robertson MD History of Present Illness 82 y/o M with history of aortic stenosis, HTN, HLD, skin cancer, chronic anemia (baseline hgb 12-13) admitted with weakness and sore throat after a tick bite 2 weeks ago. Found to be + for lyme and anaplasmosis. He notes that for the past 3 days he has been having melena 1 bowel movement per day. No hematochezia or hematemesis. He states he has never had an EGD or a colonoscopy before. No history of GI bleeding. Denies any NSAID use but he has been taking aspirin 325 mg three times daily for some pain the past couple weeks. He states he started giving him a new herbal tea a week ago and that is when his stool turned black so he thought it was just related to the tea. He denies any nausea, vomiting, abdominal pain, dysphagia, odynophagia, diarrhea, constipation. He states he never had a colonoscopy because he did not want one. No family history of GI malignancy.He does take iron tablets at home. On admission hgb 9.5 (baseline 12-13), BUN 24 with Cr of 0.77, he has a new thrombocytopenia of 61 likely due to tick borne illness. Allergies Allergy/AdvReac Type Severity Reaction Status Date / Time amoxicillin Allergy Intermediate Rash Verified 03/27/23 23:58 Home Medications Medication Instructions Recorded Confirmed Type atorvastatin 20 mg tablet 20 mg PO HS 03/07/20 03/28/23 History glipizide 10 mg tablet 10 mg PO DAILY 03/07/20 03/28/23 History lisinopril 10 mg tablet 10 mg PO DAILY 03/07/20 03/28/23 History metformin 1,000 mg tablet 1,000 mg PO BID 03/07/20 03/28/23 History multivitamin 1 tab PO DAILY 03/07/20 03/28/23 History cholecalciferol (vitamin D3) 25 25 mcg PO DAILY 07/09/21 03/28/23 History mcg (1,000 unit) tablet (Vitamin D3) ferrous sulfate 325 mg (65 mg 325 mg PO DAILY 07/09/21 03/28/23 History iron) tablet (iron) glipizide 5 mg tablet, extended 5 mg PO DAILY 03/27/23 03/28/23 History release 24 hr vitamin B complex 1 cap PO DAILY 03/27/23 03/28/23 History Patient History Medical History Anemia 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 Cardiac murmur "MILD" NO CARDS Diabetes mellitus, type 2 Hx of basal cell carcinoma Hydrocele Hyperlipidemia Hypertension Surgical History History of tooth extraction Hx of vasectomy Family History Mother Family history of diabetes mellitus Grandfather (Maternal) Family history of diabetes mellitus Other No family history of adverse response to anesthesia Social History Smoking Status: Never smoker Second Hand Exposure: Yes ( A CHILD); Hx Alcohol Use: No 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: No Beliefs That Will Affect Care: None Current Living Situation: Spouse Feels Safe at Home: Yes Safety Concerns: Feels Safe At This Time Assistive Devices: Denture - Upper, Denture - Lower and Glasses Review of Systems Constitutional: as per Subjective / HPI Physical Exam Constitutional: WD/WN, vitals as above Eyes: PERRL, conjunctivae normal, anicteric sclerae Respiratory: normal respiratory effort, lungs clear to auscultation Cardiovascular: RRR, no murmur, no edema Gastrointestinal (Abdomen): normal bowel sounds, soft, nontender, no hepatosplenomegaly Psychiatric: A+Ox3, euthymic affect Results & Data Vital Signs (Past 12 Hours) Vital Signs Pulse Pulse Resp BP BP Pulse Ox Pulse Ox 12/03/23 10:19 82 16 108/52 L 94 03/28/23 07:18 87 03/28/23 07:11 91 03/28/23 07:11 96 H 20 99/48 L 91 03/28/23 05:00 103 H 24 114/64 03/28/23 04:30 105 H 26 H 114/64 03/28/23 04:00 102 H 24 123/58 L 92 03/28/23 03:54 103 H 03/28/23 03:30 104 H 26 H 123/61 91 03/28/23 03:00 102 H 27 H 125/59 L 93 03/28/23 02:30 105 H 23 119/63 94 03/28/23 02:00 104 H 26 H 124/58 L 95 03/28/23 01:30 106 H 24 126/58 L 95 03/28/23 01:00 102 H 24 128/59 L 96 03/28/23 00:30 105 H 22 126/59 L 95 O2 Del Method O2 Del Method 03/28/23 10:19 Room Air 03/28/23 07:18 03/28/23 07:11 Room Air 03/28/23 07:11 Room Air 03/28/23 05:00 03/28/23 04:30 03/28/23 04:00 03/28/23 03:54 03/28/23 03:30 03/28/23 03:00 03/28/23 02:30 03/28/23 02:00 03/28/23 01:30 03/28/23 01:00 03/28/23 00:30
--- NOTE | 2023-03-28 13:21 | Electrocardiogram Report ---
Test Reason : Blood Pressure : / mmHG Vent. Rate : 103 BPM Atrial Rate : 103 BPM P-R Int : 162 ms QRS Dur : 098 ms QT Int : 334 ms P-R-T Axes : 065 -40 059 degrees QTc Int : 437 ms Sinus tachycardia Left axis deviation Septal infarct (cited on or before 27-APR-2016) Abnormal ECG When compared with ECG of 03-JUL-2021 12:55, No significant change was found Confirmed by Servando Bassett ([id number]) on 03/28/2023 1:20:48 PM Referred By: REFERRED SELF Confirmed By:Servando Bassett
[2023-03-28 14:37] LABS: Anaplasmosis Smear(Rpt to DOH) Pos for Anaplasma
--- NOTE | 2023-03-28 14:53 | Communication Note ---
Date of Service: March 28, 2023 Patient was seen and examined at bedside. 82-year-old male with PMH of moderate aortic stenosis, HTN, HLD, T2DM on oral meds, varicocele, skin cancer, chronic anemia [baseline hemoglobin around 12-13] presented with 1 week of generalized weakness/sore throat/dysphagia symptoms, reported having poor appetite and also having blackish stools but denied hematemesis. Patient reports noting tick bite about 2 weeks ago in his left hip. Patient also reports taking aspirin for pain at home. 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 Admitting pulse rate and respiratory rate elevated. Lactate WNL. Patient reported tick bite to his left hip about 2 weeks ago [employer] Patient with generalized weakness/poor appetite/sore throat since 8 days ago [employer] Anaplasma smear positive, Lyme's screen equivocal, await confirmatory test Admitting CT soft tissue neck and CXR with no acute findings. Patient started on doxycycline 03/28, continue with same. Follow admitting cultures Patient afebrile, reports feeling significantly better today. Acute on chronic anemia: Patient complaining of black stool for several days, uses aspirin at home for pain management. Heme positive stools documented at ED. Baseline hemoglobin around 12-13, admitting hemoglobin of 10.4, downtrending to 9.5. Monitor H&H, avoid NSAIDs, transfuse for symptomatic anemia or hemoglobin less than 7. Iron profile w/ low iron, normal folate and B12 levels. Iron supplement on DC. Continue with PPI IV, GI on board, n.p.o. midnight, possible scope tomorrow. New onset thrombocytopenia: Likely secondary to tickborne illness, follow ultrasound liver and spleen. Monitor labs. Transaminitis: Likely secondary to tickborne illness, downtrending, labs in AM. Hyponatremia: Admitting sodium of 128, likely secondary to poor p.o. intake from sore throat symptoms, improving. Follow labs. Other chronic medical conditions: HTN, HLD, T2DM --continue with/resume home meds as and when able. Sliding scale insulin while in hospital. DVT prophylaxis. SCDs Re: GI bleed Full code On exam: GENERAL: Alert and oriented x3. NAD, on RA. Appears weak and frail. HEENT: No pallor, no icterus. Pupils equal, round and reactive to light. Oral mucosa moist. oropharynx w/ engorgement and erythema noted. NECK: No JVD, no neck masses. HEART: S1 and S2 heard. Regular rate and rhythm. No murmur, no gallop. RESPIRATORY SYSTEM: Normal AP diameter. No accessory muscle use. No wheezing, no crackles. ABDOMEN: Soft, bowel sounds present, nontender, no distention. CENTRAL NERVOUS SYSTEM: No facial droop. Speech is clear. Obeys simple commands. Moves extremities. EXTREMITIES: No edema, no erythema seen. left hip w/ 2-3 mm macule w/ central pinpoint scab. Please note the above document was generated using voice recognition software. It may contain grammatical, syntax or spelling errors. Any formal questions or concerns about the content, text or information contained within the body of this dictation should be directly addressed to the undersigned for clarification.
--- NOTE | 2023-03-28 14:59 | Ultrasound Report ---
US abdomen limited CLINICAL HISTORY: thrombocytopenia COMPARISON STUDY: None. FINDINGS: Real-time sonographic imaging of the liver and spleen were performed with customer service representative im ages submitted. The liver measures 18 cm in length and the spleen measures 13.5 cm in length. No hepa tic or splenic masses identified. Incidental note is made of bilateral hydronephrosis, left [place] right. IMPRESSION: 1. Normal liver. 2. Mild splenomegaly measuring 13.5 cm in length. 3. Bilateral hydronephrosis. ACT 112: Negative or not required by law. Electronically signed by: Pietro Rosario M.D. 03/28/2023 2:57 PM
[2023-03-28] MEDS: PANTOprazole 40 MG in SYRINGE 0 ML IV SCH (20:37)
[2023-03-28] MEDS: DOXYCYCLINE HYCLATE 100 MG in DEXTROSE 5% MINI-B 100 ML IV SCH (20:44)
[2023-03-28] MEDS ORDERED: DOXYCYCLINE HYCLATE 100 MG CAP PO SCH (21:00)
[2023-03-29] MEDS: INSULIN ASPART PER UNIT CHARGE SC SCH ×4 (06:12→20:21)
[2023-03-29 07:47] LABS: Hematocrit (blood only) 28.6 % (42.0-52.0); Hemoglobin 10.4 g/dl (14.0-18.0); Mean Corpuscular Hemoglobin 31.8 pg (25.0-34.0); Mean Corpuscular Hgb Conc 36.4 g/dL (32.0-36.0); Mean Corpuscular Volume 87.5 fL (80.0-100.0); Mean Platelet Volume 11.4 fL (9.4-12.4); Platelet Count 113 K/uL (130-400); RDW Coefficient of Variation 12.8 % (11.5-14.5); RDW Standard Deviation 40.9 fL (36.4-46.3); Red Blood Count 3.27 M/uL (4.70-6.10); White Blood Count 11.39 K/ul (4.8-10.8)
[2023-03-29 07:55] LABS: Albumin Globulin Ratio 1.2 (0.9-2); BUN Creatinine Ratio 26.7 (10-20); Bilirubin,Total 1.2 mg/dl (0.2-1.0); Calcium 8.5 mg/dl (8.6-10.3); Creatinine Clr Calc Pharmacy 100.1 ml/min; Est GFR (African American) 94.3 ml/min; Est GFR (Non-African American) 81.3 ml/min; Globulin 2.5 gm/dl (2.5-4.0); Magnesium 2.3 mg/dl (1.7-2.4); Phosphorus 2.9 mg/dl (2.5-4.9); Potassium 3.8 mmol/L (3.5-5.1); Total Protein 5.5 gm/dl (6.0-8.3)
[2023-03-29 08:08] LABS: Basophils # (auto) 0.04 K/uL (0.00-0.20); Basophils % (auto) 0.4 %; Echinocytes 1+; Eosinophils # (auto) 0.02 K/uL (0.00-0.50); Eosinophils % (auto) 0.2 %; Immature Granulocytes # (auto) 0.08 K/uL (0.01-0.20); Immature Granulocytes % (auto) 0.7 %; Lymphocytes # (auto) 2.37 K/uL (1.20-3.40); Lymphocytes % (auto) 20.8 %; Neutrophils # (auto) 8.08 K/uL (1.40-6.50); Neutrophils % (auto) 70.9 %
--- NOTE | 2023-03-29 08:32 | Anesthesiology Consultation ---
Date of Service March 29, 2023 Assessment & Plan (1) Encounter for pre-operative examination: Chart Review Chart Review: Acceptable Risk for Surgery History Surgery Operation Date: 03/29/23 16:45 Proposed Procedures p Esophagogastroduodenoscopy Dr. Lolly Ambrocio MD Height/Weight Height: 5 ft 8 in Weight: 160 kg Allergies Allergy/AdvReac Type Severity Reaction Status Date / Time amoxicillin Allergy Intermediate Rash Verified 03/29/23 08:14 Medications Home Medications Medication Instructions Recorded Confirmed Last Taken atorvastatin 20 mg tablet 20 mg PO HS 03/07/20 03/28/23 03/26/23 glipizide 10 mg tablet 10 mg PO DAILY 03/07/20 03/28/23 03/27/23 lisinopril 10 mg tablet 10 mg PO DAILY 03/07/20 03/28/23 03/27/23 metformin 1,000 mg tablet 1,000 mg PO BID 03/07/20 03/28/23 03/27/23 08:00 multivitamin 1 tab PO DAILY 03/07/20 03/28/23 03/27/23 cholecalciferol (vitamin D3) 25 25 mcg PO DAILY 07/09/21 03/28/23 03/27/23 mcg (1,000 unit) tablet (Vitamin D3) ferrous sulfate 325 mg (65 mg 325 mg PO DAILY 07/09/21 03/28/23 03/27/23 iron) tablet (iron) glipizide 5 mg tablet, extended 5 mg PO DAILY 03/27/23 03/28/23 03/27/23 release 24 hr vitamin B complex 1 cap PO DAILY 03/27/23 03/28/23 03/27/23 Active Medications Generic Name Dose Route Start Last Admin Trade Name Freq PRN Reason Stop Dose Admin Pantoprazole Sodium 40 mg/ 10 mls @ 5 mls/min 03/28/23 21:00 03/28/23 20:37 Syringe IV 04/27/23 20:59 5 mls/min BID NESTOR Administration Doxycycline Hyclate 100 mg/ 100 mls @ 50 mls/hr 03/28/23 21:00 03/28/23 22:44 Dextrose IV 04/11/23 20:59 Infused BID NESTOR Infusion Insulin Aspart 0 units 03/28/23 06:41 03/29/23 06:12 Insulin Aspart Per Unit Charge SC 04/27/23 06:40 Not Given Q6 NESTOR Insulin Glargine 5 units 03/28/23 09:00 03/28/23 09:00 Lantus Per Unit Charge SQ 04/27/23 08:59 5 units DAILY NESTOR Administration Lisinopril 10 mg 03/28/23 09:00 03/28/23 10:05 Lisinopril 10 Mg Tab PO 04/27/23 08:59 10 mg DAILY NESTOR Administration Multivitamins 1 tab 03/28/23 09:00 03/28/23 10:05 Multivitamin Tab PO 04/27/23 08:59 1 tab DAILY NESTOR Administration Vitamin B Complex 1 tab 03/28/23 09:00 03/28/23 10:05 Vitamin B Complex Tab PO 04/27/23 08:59 1 tab DAILY NESTOR Administration NPO Date Last Intake of Fluids: 03/29/23 Time Last Intake of Fluids: 07:30 Date Last Intake of Solids: 03/27/23 Time Last Intake of Solids: 18:00 Past Medical History Medical History Arthritis Diabetes mellitus, type 2 Anemia Cardiac murmur "MILD" NO CARDS Hypertension Hyperlipidemia Hx of basal cell carcinoma BPH with obstruction/lower urinary tract symptoms Hydrocele Past Family History Family History Mother Family history of diabetes mellitus Grandfather (Maternal) Family history of diabetes mellitus Other No family history of adverse response to anesthesia Past Surgical History Surgical History History of tooth extraction Hx of vasectomy Social History Smoking Status: Never smoker Hx Alcohol Use: No substance use type: does not use Physical Exam Vital Signs Last Vital Signs Temp 37.1 C 03/29/23 08:16 Pulse 89 03/29/23 08:16 Resp 16 03/29/23 08:16 BP 142/77 H 03/29/23 08:16 Pulse Ox 92 03/29/23 08:16 O2 Del Method Room Air 03/29/23 08:16 Testing Laboratory Results 03/29/23 06:52 03/29/23 06:52 PT 11.8 Seconds (9.0-12.0) 03/28/23 03:49 INR 1.1 (0.9-1.1) 03/28/23 03:49 Urine Color Dark Yellow 03/28/23 09:05 Urine Appearance Cloudy (Clear) A 03/28/23 09:05 Urine pH 5.5 (4.5-7.5) 03/28/23 09:05 Ur Specific [place] 1.021 (1.000-1.030) 03/28/23 09:05 Urine Protein 2+ (Negative) H 03/28/23 09:05 Urine Glucose (UA) 2+ (Negative) H 03/28/23 09:05 Urine Ketones Negative (Negative) 03/28/23 09:05 Urine Nitrite Negative (Negative) 03/28/23 09:05 Ur Leukocyte Esterase Trace (Negative) H 03/28/23 09:05 Urine WBC (Auto) 5-10 /hpf (0-5) H 03/28/23 09:05 Urine RBC (Auto) 0-4 /hpf (0-4) 03/28/23 09:05 U Hyaline Cast (Auto) 1-5 /lpf (0-5) 03/28/23 09:05 U Epithel Cells (Auto) >30 /lpf (0-5) H 03/28/23 09:05 Urine Bacteria (Auto) 1+ (Negative) H 03/28/23 09:05 Blood Type O Positive 03/28/23 03:49 Antibody Screen NEGATIVE 03/28/23 03:49 03/28/23 03:49 Aerobic Blood Culture - Preliminary Blood No growth in Aerobic bottle after 24 hours. 03/29/23 03/28/23 06:10 23:28 POC Glucose 78 86 Electrocardiogram Date: 03/28/23 Findings: + poor R wave progression and + ST @ (103)
--- NOTE | 2023-03-29 08:43 | History & Physical Report ---
Date of Service March 29, 2023 Assessment & Plan Admission and Anticipated Discharge Date Admission Date: March 28, 2023 History of Present Illness Chief Complaint: Melena Primary Care Provider: Amanda Hidalgo DO 82 yo male with aortic stenosis, other skin issues including skin cancer, chronic anemia, gi consulted for melena over the weekend. patient reports no complaints this am. No reports of further melena. Allergies Allergy/AdvReac Type Severity Reaction Status Date / Time amoxicillin Allergy Intermediate Rash Verified 03/29/23 08:14 Home Medications Medication Instructions Recorded Confirmed Type atorvastatin 20 mg tablet 20 mg PO HS 03/07/20 03/28/23 History glipizide 10 mg tablet 10 mg PO DAILY 03/07/20 03/28/23 History lisinopril 10 mg tablet 10 mg PO DAILY 03/07/20 03/28/23 History metformin 1,000 mg tablet 1,000 mg PO BID 03/07/20 03/28/23 History multivitamin 1 tab PO DAILY 03/07/20 03/28/23 History cholecalciferol (vitamin D3) 25 25 mcg PO DAILY 07/09/21 03/28/23 History mcg (1,000 unit) tablet (Vitamin D3) ferrous sulfate 325 mg (65 mg 325 mg PO DAILY 07/09/21 03/28/23 History iron) tablet (iron) glipizide 5 mg tablet, extended 5 mg PO DAILY 03/27/23 03/28/23 History release 24 hr vitamin B complex 1 cap PO DAILY 03/27/23 03/28/23 History Past Med/Surg History Medical History Arthritis Diabetes mellitus, type 2 Anemia Cardiac murmur "MILD" NO CARDS Hypertension Hyperlipidemia Hx of basal cell carcinoma BPH with obstruction/lower urinary tract symptoms Hydrocele Surgical History History of tooth extraction Hx of vasectomy Family History Mother Family history of diabetes mellitus Grandfather (Maternal) Family history of diabetes mellitus Other No family history of adverse response to anesthesia Social History Smoking Status: Never smoker Second Hand Exposure: Yes ( A CHILD); Hx Alcohol Use: No Preferred Language: Turkmen 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 Required: No Beliefs That Will Affect Care: None Current Living Situation: Spouse Feels Safe at Home: Yes Safety Concerns: Feels Safe At This Time Assistive Devices: Denture - Upper, Denture - Lower and Glasses Review of Systems All systems reviewed & are unremarkable except as noted in HPI & below Physical Exam Physical Exam: Elderly male in nad Respiratory: Normal respirations Gastrointestinal (Abdomen): soft nt nd Results & Data Vital Signs (Past 12 Hours) Vital Signs Temp Pulse Pulse Pulse Resp BP BP 03/29/23 08:16 37.1 C 89 16 142/77 H 03/29/23 08:15 36.2 C L 93 H 93 H 16 144/74 H 144/74 H 03/29/23 07:34 88 03/29/23 03:20 36.7 C 86 18 126/66 03/28/23 23:24 36.6 C 85 18 118/66 03/28/23 22:09 83 Pulse Ox O2 Del Method 03/29/23 08:16 92 Room Air 03/29/23 08:15 93 Room Air 03/29/23 07:34 03/29/23 03:20 91 Room Air 03/28/23 23:24 93 Room Air 03/28/23 22:09 Code Status & VTE Plan VTE Prophylaxis Plan VTE Prophylaxis will be ordered: Yes Supervising Physician Co-Signing Physician Notes EGD for evaluation of melena
--- NOTE | 2023-03-29 09:01 | GI REPORT ---
Patient Name: Jesús Vences Procedure Date: 03/29/2023 8:42 AM Date of : 1940 Admit Type: Inpatient Age: 82 Gender: Male Attending MD: Caridad Ambrocio M.d., Procedure: Upper GI endoscopy Providers: Caridad Ambrocio M.d. Referring MD: Dominique Robertson Md Indications: Melena Medicines: See the Anesthesia note for documentation of the administered medications Complications: No immediate complications. Estimated Blood Loss: Estimated blood loss: none. Procedure: Pre-Anesthesia Assessment: - Patient identification and proposed procedure were verified prior to the procedure by the physician, the nurse and the anesthesiologist. The procedure was verified in the pre-procedure area. - Prior to the procedure, a History and Physical was performed, and patient medications, allergies and sensitivities were reviewed. The patient's tolerance of previous anesthesia was reviewed. - The risks and benefits of the procedure and the sedation options and risks were discussed with the patient. All questions were answered and informed consent was obtained. After obtaining informed consent, the endoscope was passed under direct vision. Throughout the procedure, the patient's blood pressure, pulse, and oxygen saturations were monitored continuously. The Endoscope was introduced through the mouth and advanced to the second part of duodenum. The upper GI endoscopy was accomplished without difficulty. The patient tolerated the procedure well. Findings: The examined esophagus appeared normal. The gastroesophageal junction was found at 42 cm from the incisors and appeared normal. The examined stomach appeared normal. Biopsies were taken with a cold forceps for Helicobacter pylori testing. The pathology specimen was placed into Bottle A. Verification of patient identification for the specimen was done by the physician and nurse using the patient's name and medical record number. The duodenal bulb and second portion of the duodenum appeared normal - biliary fluid was noted. Impression: - Normal esophagus. - Normal GE junction. - Normal stomach. Biopsied. - Normal duodenal bulb and second portion of the duodenum. Recommendation: - Await pathology results. Darby Overton M.d. 03/29/2023 9:00:53 AM This report has been signed electronically. Note Initiated On: 03/29/2023 8:42 AM Number of Addenda: 0 I attest to the content of the Intraoperative Record and orders documented therein, exceptions below {[id number]}
--- NOTE | 2023-03-29 09:03 | Communication Note ---
Date of Service: March 29, 2023 EGD completed- normal, h pylori biopsies were done given anemia. Anemia is normocytic. Abd anneliese shows a normal liver, splenomegaly which is likely contributing to low platelets. Consider an empiric ppi (prilosec 20 mg daily). No further plans for scopes from gi perspective.
[2023-03-29] MEDS ORDERED: PROPOFOL IV EMULSION 10 MG/ML 20 ML VIAL IV ONE (09:04)
[2023-03-29] MEDS ORDERED: LIDOCAINE 2% 2 ML VIAL/AMP(20MG/ML) INFIL ONE (09:04)
--- NOTE | 2023-03-29 10:15 | Anesthesiology Progress Note ---
Date of Service March 29, 2023 Anesthesia Post Procedure Vital Signs Vital Signs: Temp Pulse Pulse Pulse Resp BP BP 03/29/23 09:30 85 14 128/66 03/29/23 09:15 82 14 109/51 L 03/29/23 09:00 85 12 106/47 L 03/29/23 08:16 37.1 C 89 16 142/77 H 03/29/23 08:15 36.2 C L 93 H 93 H 16 144/74 H 144/74 H 03/29/23 07:34 88 03/29/23 03:20 36.7 C 86 18 126/66 03/28/23 23:24 36.6 C 85 18 118/66 03/28/23 22:09 83 03/28/23 20:00 36.7 C 84 18 122/76 03/28/23 17:47 82 03/28/23 17:24 36.6 C 81 19 108/65 03/28/23 10:19 82 16 108/52 L Pulse Ox O2 Del Method 03/29/23 09:30 93 Room Air 03/29/23 09:15 95 Room Air 03/29/23 09:00 98 Room Air 03/29/23 08:16 92 Room Air 03/29/23 08:15 93 Room Air 03/29/23 07:34 03/29/23 03:20 91 Room Air 03/28/23 23:24 93 Room Air 03/28/23 22:09 03/28/23 20:00 94 Room Air 03/28/23 17:47 03/28/23 17:24 94 Room Air 03/28/23 10:19 94 Room Air Pain Intensity Neck: Pain Intensity: 3 Transfer of Care Handoff Completed per policy Notes Mental Status: alert / awake / arousable Patient Amnestic to Procedure: Yes Nausea / Vomiting: adequately controlled Pain: adequately controlled Airway Patency, RR, SpO2: stable & adequate BP & HR: stable & adequate Hydration State: stable & adequate Anesthetic Complications: no major complications apparent
[2023-03-29] MEDS: VITAMIN B COMPLEX TAB PO SCH (10:27)
[2023-03-29] MEDS: PANTOprazole 40 MG in SYRINGE 0 ML IV SCH ×2 (10:27→20:21)
[2023-03-29] MEDS: LANTUS PER UNIT CHARGE SQ SCH (10:27)
[2023-03-29] MEDS: MULTIVITAMIN TAB PO SCH (10:27)
[2023-03-29] MEDS: lisinopril 10 MG TAB PO SCH (10:28)
[2023-03-29] MEDS: DOXYCYCLINE HYCLATE 100 MG in DEXTROSE 5% MINI-B 100 ML IV SCH ×2 (10:28→20:20)
--- NOTE | 2023-03-29 10:42 | CT Scan Report ---
CT abd pelvis wo con CLINICAL HISTORY: r/o stones/obstruction; b/l hydronephrosis + TECHNIQUE: Helical axial images of the abdomen and pelvis were obtained. Automated dose lowering tech niques and/or adjustment according to patient size were utilized for this exam. This exam was perfor med without intravenous contrast. CT DOSE: 878.17 mGy.cm COMPARISON: Comparison is made to right upper quadrant ultrasound 03/28/2023 FINDINGS: Lower chest: Small bilateral pleural effusions. Atelectasis is noted. Liver: Unremarkable. No focal lesions are seen. Gallbladder and biliary tree: No calcified gallstones. Normal caliber wall. No intra- or extrahepatic biliary ductal dilation. Pancreas: Unremarkable, no focal lesions. Spleen: Unremarkable. Adrenals: Unremarkable. Kidneys and ureters: Bilateral hydronephrosis is seen with retention of vicariously excreted contrast . No obstructive stones are seen. Bladder: Diffuse homogeneous wall thickening is seen. Reproductive organs: Prostatomegaly is seen. Bowel: The appendix is normal. Lymph nodes Retroperitoneal: Unremarkable. Pelvic: Unremarkable. Mesenteric: Unremarkable. Peritoneum: Unremarkable. Vessels: Atherosclerotic calcifications are seen. Abdominal wall: Small bilateral inguinal hernias containing trace fluid and nonobstructive bowel. Bones: Degenerative changes in the visualized spine. IMPRESSION: 1. Bilateral hydronephrosis without evidence of obstructive stone. Thickening of the bladder wall is seen, findings are likely due to chronic outlet obstruction. 2. Bilateral inguinal hernias containing nonobstructed bowel. 3. Additional findings as above.. ACT 112: Negative or not required by law. Electronically signed by: Yuniel Blum M.D. 03/29/2023 10:40 AM
--- NOTE | 2023-03-29 15:49 | Hospitalist Progress Note ---
Date of Service March 29, 2023 Assessment & Plan (1) Anaplasmosis: Plan 82-year-old male with PMH of moderate aortic stenosis, HTN, HLD, T2DM on oral meds, varicocele, skin cancer, chronic anemia [baseline hemoglobin around 12-13] presented with 1 week of generalized weakness/sore throat/dysphagia symptoms, reported having poor appetite and also having blackish stools but denied hematemesis. Patient reports noting tick bite about 2 weeks ago in his left hip. Patient also reports taking aspirin for pain at home. 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 Admitting pulse rate and respiratory rate elevated. Lactate WNL. 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 Patient started on doxycycline 03/28, continue with same. 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 Heme positive stools documented at ED. Baseline hemoglobin around 12-13, admitting hemoglobin of 10.4, downtrending to 9.5 now going up. Monitor H&H, avoid NSAIDs, transfuse for symptomatic anemia or hemoglobin less than 7. s/p nl EGD scope 03/29 - await biopsy results for H. pylori. Iron profile w/ low iron, normal folate and B12 levels. Iron supplement on DC. Continue with PPI IV, GI on board, appreciate recs. F/u on HPE result from EGD scope. New onset thrombocytopenia: Likely secondary to tickborne illness, Abd USG w/ nl liver and mild splenomegaly. Monitor labs. Improving. B/l Hydronephrosis: noted in abd US, CTAP - no stone, findings s/o chronic outlet obstruction. Pt complaints of urinary hesitency, will start on tamsulosin. f/u w/ uro as OP for further w/u. Transaminitis: Likely secondary to tickborne illness, downtrending, labs in AM. Hyponatremia: Admitting sodium of 128, likely secondary to poor p.o. intake from sore throat symptoms, improving. Follow labs. Other chronic medical conditions: HTN, HLD, T2DM --continue with/resume home meds as and when able. Sliding scale insulin while in hospital. DVT prophylaxis. SCDs Re: GI bleed Full code Admission and Anticipated Discharge Date Admission Date: March 28, 2023 Subjective Patient was seen and examined at bedside. Patient was lying in bed, on room air, resting comfortably, not in any acute distress. Patient is n.p.o. for scope today, denies any new acute event overnight, reports feeling better overall. Patient denies any headache or dizziness or chest pain or palpitation. Physical Exam Physical Exam: GENERAL: Alert and oriented x3. NAD, on RA. Appears weak and frail. HEENT: No pallor, no icterus. Pupils equal, round and reactive to light. Oral mucosa moist. oropharynx w/ engorgement and erythema noted. NECK: No JVD, no neck masses. HEART: S1 and S2 heard. Regular rate and rhythm. No murmur, no gallop. RESPIRATORY SYSTEM: Normal AP diameter. No accessory muscle use. No wheezing, no crackles. ABDOMEN: Soft, bowel sounds present, nontender, no distention. CENTRAL NERVOUS SYSTEM: No facial droop. Speech is clear. Obeys simple commands. Moves extremities. EXTREMITIES: No edema, no erythema seen. left hip w/ 2-3 mm macule w/ central scab. Results & Data Results & Data Vital Signs (Past 12 Hours) Vital Signs Temp Pulse Pulse Pulse Resp BP BP 03/29/23 14:54 100 H 03/29/23 11:36 36.3 C L 95 H 16 147/68 H 03/29/23 09:30 85 14 128/66 03/29/23 09:15 82 14 109/51 L 03/29/23 09:00 85 12 106/47 L 03/29/23 08:16 37.1 C 89 16 142/77 H 03/29/23 08:15 36.2 C L 93 H 93 H 16 144/74 H 144/74 H 03/29/23 07:34 88 Pulse Ox O2 Del Method 03/29/23 14:54 03/29/23 11:36 96 Room Air 03/29/23 09:30 93 Room Air 03/29/23 09:15 95 Room Air 03/29/23 09:00 98 Room Air 03/29/23 08:16 92 Room Air 03/29/23 08:15 93 Room Air 03/29/23 07:34
[2023-03-29] MEDS ORDERED: Nursing to Pharmacy Communication SCH (16:15)
[2023-03-29] MEDS: TAMSULOSIN HCL 0.4 MG CAP PO SCH (20:21)
[2023-03-30 07:15] LABS: Hematocrit (blood only) 27.3 % (42.0-52.0); Hemoglobin 9.7 g/dl (14.0-18.0); Mean Corpuscular Hemoglobin 31.7 pg (25.0-34.0); Mean Corpuscular Hgb Conc 35.5 g/dL (32.0-36.0); Mean Corpuscular Volume 89.2 fL (80.0-100.0); Mean Platelet Volume 10.6 fL (9.4-12.4); Platelet Count 143 K/uL (130-400); RDW Coefficient of Variation 13.1 % (11.5-14.5); Red Blood Count 3.06 M/uL (4.70-6.10); White Blood Count 7.03 K/ul (4.8-10.8)
[2023-03-30 07:45] LABS: Albumin Globulin Ratio 1.2 (0.9-2); Albumin Level 2.8 gm/dl (3.4-5.0); BUN Creatinine Ratio 20.3 (10-20); Calcium 8.2 mg/dl (8.6-10.3); Creatinine Clr Calc Pharmacy 77.7 ml/min; Est GFR (African American) 97.6 ml/min; Est GFR (Non-African American) 84.2 ml/min; Globulin 2.3 gm/dl (2.5-4.0); Magnesium 2.2 mg/dl (1.7-2.4); Phosphorus 3.9 mg/dl (2.5-4.9); Potassium 3.9 mmol/L (3.5-5.1); Total Protein 5.1 gm/dl (6.0-8.3)
[2023-03-30] MEDS: lisinopril 10 MG TAB PO SCH (08:29)
[2023-03-30] MEDS: MULTIVITAMIN TAB PO SCH (08:29)
[2023-03-30] MEDS: VITAMIN B COMPLEX TAB PO SCH (08:30)
[2023-03-30] MEDS: PANTOprazole 40 MG in SYRINGE 0 ML IV SCH (08:30)
[2023-03-30] MEDS: DOXYCYCLINE HYCLATE 100 MG in DEXTROSE 5% MINI-B 100 ML IV SCH ×2 (08:30→20:56)
[2023-03-30] MEDS: INSULIN ASPART PER UNIT CHARGE SC SCH ×4 (09:14→20:55)
[2023-03-30] MEDS: LANTUS PER UNIT CHARGE SQ SCH (09:14)
[2023-03-30 14:48] LABS: 18KDIGG Band NON-REACTIVE; 23KDIGG Band NON-REACTIVE; 23KDIGM Band NON-REACTIVE; 28KDIGG Band NON-REACTIVE; 30KDIGG Band NON-REACTIVE; 39KDIGG Band REACTIVE; 39KDIGM Band NON-REACTIVE; 41KDIGG Band NON-REACTIVE; 41KDIGM Band NON-REACTIVE; 45KDIGG Band NON-REACTIVE; 58KDIGG Band REACTIVE; 66KDIGG Band NON-REACTIVE; 93KDIGG Band NON-REACTIVE; Lyme Antibodies, WB IgG NEGATIVE (NEGATIVE); Lyme Antibodies, WB IgM NEGATIVE (NEGATIVE)
--- NOTE | 2023-03-30 15:04 | Hospitalist Progress Note ---
Date of Service March 30, 2023 Assessment & Plan (1) Anaplasmosis: Plan 82-year-old male with PMH of moderate aortic stenosis, HTN, HLD, T2DM on oral meds, varicocele, skin cancer, chronic anemia [baseline hemoglobin around 12-13] presented with 1 week of generalized weakness/sore throat/dysphagia symptoms, reported having poor appetite and also having blackish stools but denied hematemesis. Patient reports noting tick bite about 2 weeks ago in his left hip. Patient also reports taking aspirin for pain at home. 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 Admitting pulse rate and respiratory rate elevated. Lactate WNL. 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 Patient started on doxycycline 03/28, continue with same. - will do 10 day course. Follow admitting cultures Patient afebrile, reports feeling better still weak, will need prescription for walker. 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 Heme positive stools documented at ED. Baseline hemoglobin around 12-13, admitting hemoglobin of 10.4, stable around 9.5. Monitor H&H, avoid NSAIDs, transfuse for symptomatic anemia or hemoglobin less than 7. s/p nl EGD scope 03/29 - await biopsy results for H. pylori. Iron profile w/ low iron, normal folate and B12 levels. Iron supplement on DC. Continue with PPI IV--to PO PPI F/u on HPE result from EGD scope -- no concern for h.pylori infxn Advance diet to soft, HnH in AM New onset thrombocytopenia: Likely secondary to tickborne illness, Abd USG w/ nl liver and mild splenomegaly. Monitor labs. Improving. B/l Hydronephrosis: noted in abd US, CTAP - no stone, findings s/o chronic outlet obstruction. Pt complaints of urinary hesitency, will start on tamsulosin. f/u w/ uro as OP for further w/u. Transaminitis: Likely secondary to tickborne illness, downtrending, labs in AM. Hyponatremia: Admitting sodium of 128, likely secondary to poor p.o. intake from sore throat symptoms, improving. Follow labs. Other chronic medical conditions: HTN, HLD, T2DM --continue with/resume home meds as and when able. Sliding scale insulin while in hospital. DVT prophylaxis. SCDs Re: GI bleed Full code Dispo: advancing diet, HnH in AM if stable, can dc stephanie Admission and Anticipated Discharge Date Admission Date: March 28, 2023 Subjective Patient was seen and examined at bedside. Patient was lying in bed, on room air, resting comfortably, not in any acute distress. Denies any new acute event overnight, reports feeling better, but still feels weak Reports improving sore throat and improving appetite. Patient denies any headache or dizziness or chest pain or palpitation. Tolerating diet well, will advance to soft; change iv to po ppi, HnH in AM. Physical Exam Physical Exam: GENERAL: Alert and oriented x3. NAD, on RA. Appears weak and frail. HEENT: No pallor, no icterus. Pupils equal, round and reactive to light. Oral mucosa moist. oropharynx w/ engorgement and erythema noted - improving. NECK: No JVD, no neck masses. HEART: S1 and S2 heard. Regular rate and rhythm. No murmur, no gallop. RESPIRATORY SYSTEM: Normal AP diameter. No accessory muscle use. No wheezing, no crackles. ABDOMEN: Soft, bowel sounds present, nontender, no distention. CENTRAL NERVOUS SYSTEM: No facial droop. Speech is clear. Obeys simple commands. Moves extremities. EXTREMITIES: No edema, no erythema seen. left hip w/ 2-3 mm macule w/ central s cab. Results & Data Results & Data Vital Signs (Past 12 Hours) Vital Signs Temp Pulse Pulse Resp BP Pulse Ox O2 Del Method 03/30/23 11:53 36.4 C L 80 16 146/72 H 94 Room Air 03/30/23 09:00 Room Air 03/30/23 07:49 36.5 C 85 16 124/65 94 Room Air 03/30/23 07:00 84 03/30/23 04:51 36.6 C 99 H 18 133/46 L 93 Room Air
[2023-03-30] MEDS: TAMSULOSIN HCL 0.4 MG CAP PO SCH (20:56)
[2023-03-31 07:37] VITALS: BP 146/48; RESP 19; TEMP 97.9; O2SAT 95
[2023-03-31 07:43] LABS: Hemoglobin 10.2 g/dl (14.0-18.0); Mean Corpuscular Hemoglobin 32.2 pg (25.0-34.0); Mean Corpuscular Hgb Conc 36.4 g/dL (32.0-36.0); Mean Corpuscular Volume 88.3 fL (80.0-100.0); Mean Platelet Volume 10.3 fL (9.4-12.4); Platelet Count 200 K/uL (130-400); RDW Coefficient of Variation 13.2 % (11.5-14.5); RDW Standard Deviation 42.9 fL (36.4-46.3); Red Blood Count 3.17 M/uL (4.70-6.10); White Blood Count 5.19 K/ul (4.8-10.8)
[2023-03-31 08:27] LABS: Albumin Globulin Ratio 1.1 (0.9-2); Albumin Level 2.9 gm/dl (3.4-5.0); BUN Creatinine Ratio 15.9 (10-20); Bilirubin,Total 0.8 mg/dl (0.2-1.0); Calcium 8.5 mg/dl (8.6-10.3); Creatinine Clr Calc Pharmacy 68.4 ml/min; Est GFR (African American) 96.1 ml/min; Est GFR (Non-African American) 82.9 ml/min; Globulin 2.6 gm/dl (2.5-4.0); Magnesium 2.1 mg/dl (1.7-2.4); Potassium 4.2 mmol/L (3.5-5.1); Total Protein 5.5 gm/dl (6.0-8.3)
[2023-03-31] MEDS: VITAMIN B COMPLEX TAB PO SCH (08:42)
[2023-03-31] MEDS: DOXYCYCLINE HYCLATE 100 MG in DEXTROSE 5% MINI-B 100 ML IV SCH (08:42)
[2023-03-31] MEDS: lisinopril 10 MG TAB PO SCH (08:42)
[2023-03-31] MEDS: MULTIVITAMIN TAB PO SCH (08:42)
[2023-03-31] MEDS: INSULIN ASPART PER UNIT CHARGE SC SCH (08:47)
[2023-03-31] MEDS ORDERED: PANTOprazole 40 MG TAB PO SCH (09:00)
[2023-03-31] MEDS ORDERED: FERROUS GLUCONATE 324 MG TAB PO SCH (09:00)
[2023-03-31 11:05] VITALS: PULSE 93
--- NOTE | 2023-03-31 16:28 | Discharge Summary ---
Discharge Summary Date of Service March 31, 2023 Notes For Next Care Provider Plan for repeat labs in 1 week (CBC and CMP) Medication Changes From Visit -Doxycycline 100mg BID for total 14 days -Tamsulosin 0.4 qhs for LUTS/BPH -Pepcid 20mg daily x 30 days until follow up Admission HPI Per Admitting Provider 82 yo male with aortic stenosis, other skin issues including skin cancer, chronic anemia, gi consulted for melena over the weekend. patient reports no complaints this am. No reports of further melena. Admission Exam Per Admitting Provider GENERAL: Slightly uncomfortable, ill looking, wane, no respiratory distress SKIN: Pallor,, warm HEENT: Bespectacled, pale palpebral conjunctivae, no ptosis, dry buccal mucosa NECK : Supple, erythema overlying laryngeal prominence, no tenderness CHEST : CTA, no tenderness HEART : Tachycardic, no obvious murmurs ABDOMEN: Some distention, nontender RECTAL : Intact sphincter, melanotic stool (FOBT positive) EXTREMITIES : No LE swelling/tenderness, no other conspicuous deformities noted NEUROLOGIC : Coherent, no facial asymmetry, intention tremors, gait and stance not assessed Principal Dx & Hospital Course #1 = Principal Diagnosis (1) Anaplasmosis: Plan 82-year-old male with PMH of moderate aortic stenosis, HTN, HLD, T2DM on oral meds, varicocele, skin cancer, chronic anemia [baseline hemoglobin around 12-13] presented with 1 week of generalized weakness/sore throat/dysphagia symptoms, reported having poor appetite and also having blackish stools but denied hematemesis. Patient reports noting tick bite about 2 weeks ago in his left hip. Patient also reports taking aspirin for pain at home. 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 Admitting pulse rate and respiratory rate elevated. Lactate WNL. 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 Patient started on doxycycline 03/28, continue with same. - will do 14 day course. 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 Heme positive stools documented at ED. Baseline hemoglobin around 12-13, admitting hemoglobin of 10.4, stable around 9.5. Monitor H&H, avoid NSAIDs, transfuse for symptomatic anemia or hemoglobin less than 7. s/p nl EGD scope 03/29 - await biopsy results for H. pylori. Will need GI follow up to review results of EGD Start Pepcid 20mg daily until follow up with GI as OP New onset thrombocytopenia*resolved : Likely secondary to tickborne illness, Abd USG w/ nl liver and mild splenomegaly. Monitor labs. Improving. B/l Hydronephrosis: noted in abd US, CTAP - no stone, findings s/o chronic outlet obstruction. Pt complaints of urinary hesitency, Continue tamsulosin Transaminitis*downtrending: Likely secondary to tickborne illness, downtrending, labs in AM. Hyponatremia*resolved: Admitting sodium of 128, likely secondary to poor p.o. intake from sore throat symptoms, improving. Follow labs. Other chronic medical conditions: HTN, HLD, T2DM --continue with/resume home meds On day of discharge, patient was doing much better, noting strong appetite and eagerness to return home. Patient ambulating with walker, denied pain, and denied any new concerns. Discharge Exam Constitutional WD/WN, vitals as above Respiratory normal respiratory effort, lungs clear to auscultation Cardiovascular RRR, no murmur, no edema Gastrointestinal (Abdomen) normal bowel sounds, soft, nontender, no hepatosplenomegaly Updated Medication List Medication Instructions Recorded Confirmed Type atorvastatin 20 mg tablet 20 mg PO HS 03/07/20 03/28/23 History glipizide 10 mg tablet 10 mg PO DAILY 03/07/20 03/28/23 History lisinopril 10 mg tablet 10 mg PO DAILY 03/07/20 03/28/23 History metformin 1,000 mg tablet 1,000 mg PO BID 03/07/20 03/28/23 History multivitamin 1 tab PO DAILY 03/07/20 03/28/23 History cholecalciferol (vitamin D3) 25 25 mcg PO DAILY 07/09/21 03/28/23 History mcg (1,000 unit) tablet (Vitamin D3) ferrous sulfate 325 mg (65 mg 325 mg PO DAILY 07/09/21 03/28/23 History iron) tablet (iron) glipizide 5 mg tablet, extended 5 mg PO DAILY 03/27/23 03/28/23 History release 24 hr vitamin B complex 1 cap PO DAILY 03/27/23 03/28/23 History doxycycline hyclate 100 mg capsule 100 mg PO BID 14 days #26 caps 03/31/23 Rx omeprazole magnesium 10 mg oral 20 mg PO DAILY 30 days #30 ea 03/31/23 Rx suspension,delayed release (Prilosec) tamsulosin 0.4 mg capsule 0.4 mg PO HS #30 caps 03/31/23 Rx Hospital Stay Data Consultations 03/28/23 03:24 ED Decision to Admit Stat 03/28/23 06:41 Consult Gastroenterology Routine Procedures Performed Operation Date: 03/29/23 16:45 Actual Procedures p EGD Biopsy Cytology - Caridad Ambrocio MD Diagnostic Imagining Performed 03/28/23 04:19 CT neck soft tissues [CT soft tissue neck w con] Stat 03/28/23 12:40 US abdomen limited Routine 03/29/23 07:57 CT Abd and Pelvis [CT abd pelvis wo con] Routine Pending Results Patient Have Any Pending Studies at Discharge: Yes Discharge Instructions Given to Patient (Per Discharging Provider) You were admitted for weakness and feeling generally unwell after a noted tick bite. You labs came back positive for Anaplasmosis, a tick bourne disease. You were started on doxycycline. You will take 1 tab (100mg) two times a day until the prescription is completed (for a total of 14 days including the medication you recieved in the hospital). It was noted on CT imaging that you possibly have enlarged prostrate contributing to urinary hesitancy, or difficulty starting a flow. You were started on tamsulosin. You will take this at bedtime. You also were started on prilosec 20mg while the results of your EGD biopsies result. Your atorvastatin 20mg was held due to elevation of your liver enzymes. These levels are coming down and likely related to your tick-bourne illness. Therefore, please resume this medication when told to do so by your primary after follow up with your repeat lab work. It is recommended you follow up with Gastroenterology, the stomach doctors, for results of the scope above (EGD). It is recommended you follow up with your PCP and discuss referral to Urology. It is recommended you have labs (CBC and CMP) obtained in 1 week. Total Time Total Time Spent Total Time Spent (In Minutes): 45
== END 2023-03-31 12:35 | disposition home or self-care (01) | DRG 872 ==
LOC: ED 21:58 → EDINP 03-28 04:22 → SUATTDRO 03-28 04:22 → 2N 03-28 16:33
DX: A79.82 Anaplasmosis [A. phagocytophilum]; R74.01 Elevation of levels of liver transaminase levels; N13.30 Unspecified hydronephrosis; A69.20 Lyme disease, unspecified; D69.59 Other secondary thrombocytopenia; Z83.3 Family history of diabetes mellitus; K92.1 Melena; E11.9 Type 2 diabetes mellitus without complications; E87.1 Hypo-osmolality and hyponatremia; D62 Acute posthemorrhagic anemia; E78.5 Hyperlipidemia, unspecified; Z88.1 Allergy status to other antibiotic agents; I35.0 Nonrheumatic aortic (valve) stenosis; Z79.84 Long term (current) use of oral hypoglycemic drugs; I10 Essential (primary) hypertension; A41.89 Other specified sepsis